=== PATIENT | female | born 1950 | race Caucasian/White ===

== ENCOUNTER 2017-01-11 13:16 | Emergency (ER) | payer OTHER ==
[~2017-01-11] VITALS: Ht 175.3 cm; Wt 58.2 kg
[2017-01-11 13:19] VITALS: TEMP 36.4; Ht 175.3 cm; Wt 58.2 kg
--- NOTE | 2017-01-11 14:48 | DIAGNOSTIC IMAGING REPORT ---
NASAL BONES MIN 3 VIEWS CLINICAL HISTORY: dog struck face trauma COMPARISON STUDY: None FINDINGS: Negative study IMPRESSION: Negative study The above report was generated using voice recognition software. It may contain grammatical, syntax or spelling errors. Electronically signed by: Hernando Kimball M.D. 01/11/2017 2:47 PM Dictated Date/Time: 01/11/2017 2:46 PM
[2017-01-11 15:25] VITALS: BP 166/85; PULSE 84; O2SAT 99
--- NOTE | 2017-01-11 21:23 | EMERGENCY ROOM VISIT NOTE ---
ED Visit Note First contact with patient: 13:54 Chief Complaint: I think I broke my nose. History of Present Illness: Ms. Gonsalves is a 66-year-old white female who ambulates into the ED complaining of nasal pain. Historically patient reports she's had a previous nasal fracture and a repair of a septal deviation many years ago. Patient reports approximately one to 2 hours ago she was getting a dog out of a cage and the dog jumped towards her and struck his head on to her nose. She reports at the time of the injury she had no loss of consciousness but immediately after the injury she had dizziness and reported that she had to lie on the ground for approximately 15-20 minutes until the dizziness resolved. Currently she is complaining of nasal pain just inferior to the nasal bones. She describes the pain as a pressure sensation. She rates her discomfort 1/10. Her pain is nonradiating. Her pain worsens with palpation. He has not identified any alleviating factors related to the pain. She has not taken medications for pain prior to arrival at the hospital. Additionally after the injury she reports she had nasal bleeding from the left nostril only. Currently she denies headache, dizziness, lightheadedness, visual changes, hearing changes, difficult speaking, difficulty swallowing, difficulty ambulating/coordinating body movements, neck pain, other facial pain, nausea, vomiting. Review of Systems: As noted above in history of present illness. 8 body systems were reviewed and found to be negative as noted above. Past Medical History: As previously noted, unspecified stomach disorder, kidney stones, osteoporosis, unspecified urinary problems, unspecified swallowing disorder. Current Medications: Patient denies. Allergies to Medications: Aspirin, codeine, penicillin, Darvocet. Social History: Patient is currently employed; she lives by herself and feels safe in her home environment; she denies alcohol use and admits to tobacco use. Physical Examination: Vital Signs: Date Time Temp Pulse Resp B/P (MAP) Pulse Ox O2 Delivery O2 Flow Rate FiO2 01/11/17 15:25 84 16 166/85 99 Room Air 01/11/17 13:19 36.4 85 20 171/92 95 Room Air GENERAL: 66-year-old female in mild distress due to pain, nontoxic-appearing, afebrile and hemodynamically stable. NEUROLOGICAL: Awake, alert and oriented to person, place and time. Answering questions appropriately and following commands. Normal gait. Good hand eye coordination. Cranial nerves II through XII grossly intact. Good short-term and long-term recall. SKIN: Warm, dry and pink. No soft tissue open or trauma noted. HEENT: Atraumatic and normocephalic. Face: Mild leftward deviation of the nose with an associated contusion over the nose slightly more pronounced on the left than the right. No tenderness or bony deformity over the nasal bones. No tenderness or deformity over the orbits or zygomatic arch area. No malocclusion. PERRLA. EOMI out nystagmus. Sclera white and conjunctiva pink. No intraoral trauma. Airway patent. Speech is clear and normal. BACK: No tenderness over the bony cervical or thoracic spine. ED Course: Patient is assessed as noted above. Patient's medication list was reviewed. Patient was offered pain medication and refused. Nasal X-Rays: Were read by myself and the radiologist and shows no acute fractures. Patient was educated about today's findings and instructed on her treatment plan ; she verbalized understanding and agreement with this plan. Clinical Impression: Nasal contusion. Disposition: Patient discharged home in stable condition; prior to departure she was reassessed and subjectively reported that she was pain-free. LATE NOTE: Was noted that the patient was slightly hypertensive and had no history of hypertension. She was encouraged to follow-up with family physician recheck of her blood pressure. Plan: Patient was encouraged to use 650 mg of acetaminophen as needed every 6 hours as needed for pain. Patient was encouraged use ice on areas of pain and swelling. Patient was educated about signs of head injury. Patient was encouraged return ED for any signs of head injury, uncontrolled nasal bleeding, any difficulty breathing through the nose or any new/concerning symptoms.
== END 2017-01-11 15:50 | disposition home or self-care (01) ==
LOC: C.EDB 13:17 → C.EDD 15:50
DX: S00.33XA Contusion of nose, initial encounter (principal); W54.1XXA Struck by dog, initial encounter; M81.0 Age-related osteoporosis without current pathological fracture; F17.200 Nicotine dependence, unspecified, uncomplicated; Z87.19 Personal history of other diseases of the digestive system; Z87.442 Personal history of urinary calculi; Z88.0 Allergy status to penicillin; Z88.5 Allergy status to narcotic agent; Z88.6 Allergy status to analgesic agent; Z88.8 Allergy status to other drugs, medicaments and biological substances

== ENCOUNTER 2019-03-06 18:21 | Inpatient (IN) ==
[2019-03-06] MEDS ORDERED: SODIUM CHLORIDE 0.9% 1000ML 1,000 ML IV ONE (18:44)
--- NOTE | 2019-03-06 19:21 | XRay Report ---
SINGLE VIEW CHEST CLINICAL HISTORY: Atypical chest pain. FINDINGS: An AP, portable, upright chest radiograph is compared to study dated 07/26/2018. Correlation is made with chest CT dated 01/09/2018. The examination is degraded by portable technique and patient rotation. The cardiomediastinal silhouette is unremarkable noting atherosclerotic calcification of t he thoracic aorta. Emphysema and chronic interstitial thickening are similar to previous. No airspace consolidation or large pleural effusion is identified. No pneumothorax is seen. The skeletal structu res are osteopenic. The bony thorax is grossly intact. IMPRESSION: Emphysematous change with no active disease in the chest. ACT 112: Negative or not required by law. Electronically signed by: Jigar Cota M.D. 03/06/2019 7:20 PM
[2019-03-06 19:25] LABS: Appearance Urine Clear (Clear); Bilirubin Urine Negative (Negative); Blood Urine Negative (Negative); Color Urine Yellow; Glucose Urine UA Negative (Negative); Ketones Urine 1+ (Negative); Leukocyte Esterase Urine Negative (Negative); Nitrite Urine Negative (Negative); Protein Urine Negative (Negative); Specific Gravity Urine 1.032 (1.000-1.030); Urobilinogen Urine Negative (Negative); pH Urine 5.5 (4.5-7.5)
[2019-03-06 19:26] LABS: Basophils # (auto) 0.04 K/uL (0-0.2); Basophils % (auto) 0.6 %; Eosinophils # (auto) 0.05 K/uL (0-0.5); Eosinophils % (auto) 0.7 %; Hematocrit (blood only) 43.9 % (37-47); Hemoglobin 14.6 g/dL (12.0-16.0); Immature Granulocytes # (auto) 0.01 K/uL (0.00-0.02); Immature Granulocytes % (auto) 0.1 %; Lymphocytes # (auto) 1.59 K/uL (1.2-3.4); Mean Corpuscular Hemoglobin 30.9 pg (25-34); Mean Corpuscular Hgb Conc 33.3 g/dL (32-36); Mean Platelet Volume 9.3 fL (7.4-10.4); Monocytes # (auto) 0.47 K/uL (0.11-0.59); Monocytes % (auto) 6.8 %; Neutrophils # (auto) 4.76 K/uL (1.4-6.5); Neutrophils % (auto) 68.8 %; Platelet Count 263 K/uL (130-400); RDW Coefficient of Variation 12.4 % (11.5-14.5); Red Blood Count 4.72 M/uL (4.2-5.4); White Blood Count 6.92 K/uL (4.8-10.8)
[2019-03-06 19:55] LABS: Alanine Aminotransferase 16 U/L (12-78); Aspartate Aminotransferase 11 U/L (15-37); BUN Creatinine Ratio 23.3 (10-20); Blood Urea Nitrogen 17 mg/dl (7-18); Calcium 9.4 mg/dl (8.5-10.1); Carbon Dioxide 27 mmol/L (21-32); Chloride 107 mmol/L (98-107); Est GFR (African American) 94.9; Est GFR (Non-African American) 81.9; Glucose 98 mg/dl (70-99); Lipase 97 U/L (73-393); Magnesium 2.1 mg/dl (1.8-2.4); Sodium 141 mmol/L (136-145)
[2019-03-06] MEDS ORDERED: OPTIRAY 320 125ml IV PRN (19:59)
[2019-03-06 20:06] LABS: Albumin Globulin Ratio 1.1 (0.9-2); Alkaline Phosphatase 111 U/L (45-117); Bilirubin,Total 0.7 mg/dl (0.2-1); Globulin 3.5 gm/dl (2.5-4.0); Phosphorus 3.3 mg/dl (2.5-4.9); Thyroid Stimulating Hormone 0.442 uIu/ml (0.300-4.500); Total Protein 7.5 gm/dl (6.4-8.2); Troponin I < 0.015 ng/ml (0-0.045)
--- NOTE | 2019-03-06 20:37 | CT Scan Report ---
UNENHANCED CT OF THE BRAIN; CT ANGIOGRAM OF THE BRAIN; CT ANGIOGRAM OF THE NECK CLINICAL HISTORY: Seizure. COMPARISON STUDY: CT of the brain dated 10/30/2018. MR angiogram of the brain dated 02/13/2018. MR an giogram of the neck dated 02/13/2018. TECHNIQUE: Unenhanced axial CT scan of the brain is performed. Subsequently, following the IV adminis tration of 119 of [address] 320, CT angiogram of the head and neck was performed from the aortic arch t o the vertex. Images are reviewed in the axial, sagittal, and coronal planes. 3-D MIPS images are cre ated and assessed. IV contrast was administered without complication. All measurements were calculate d based on NASCET criteria. A dose lowering technique was utilized adhering to the principles of ALA RA. CT DOSE: 1000.63 mGy.cm FINDINGS: Brain parenchyma: There is a small low-attenuation extra-axial fluid collection along the left convex ity measuring up to 10 mm deep to the craniotomy site. Again seen is a small focus of high left fron natalie encephalomalacia at the site of previous surgical resection. There is no hemorrhage, mass effect, or evidence of acute territorial ischemia by CT criteria. Glez-white matter differentiation is prese rved. No enhancing lesion is clearly identified on the postcontrast sequences. There is unchanged toni earance of a 2.5 cm densely calcified extra-axial lesion along the left temporal convexity. There is no significant associated mass effect, and the appearance remains typical for a meningioma. Thoracic aorta: Visualized portions of the thoracic aorta are normal in caliber. The aortic arch demo nstrates standard 3-vessel anatomy. Right carotid arterial system: The right common carotid artery is widely patent, as are the right int ernal and external carotid arteries. Left carotid arterial system: The left common carotid artery is widely patent, as are the left internal grinder tender al and external carotid arteries. Vertebral arteries: The vertebral arteries are widely patent bilaterally noting left-sided dominance. 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 Intracranial vasculature: There is mild atherosclerotic calcification of the cavernous carotid arteri es. There is a large right posterior communicating artery. The internal carotid arteries are patent a t the skull base, as are the anterior and middle cerebral arteries bilaterally. The vertebrobasilar s ystem and posterior cerebral arteries are widely patent. The left vertebral artery is dominant. There is no aneurysm, high-grade stenosis, or focal vessel cut off seen throughout the intracranial circul ation. Jugular veins: Patent bilaterally. Dural sinuses: Patent. Lung apices: Advanced emphysematous change is noted in the upper lobes. Upper lobe lung parenchyma is otherwise clear as imaged. Soft tissues: The visualized pharyngeal soft tissues are normal in appearance noting angiographic pha se technique. The oropharyngeal airway appears widely patent. There are large bilateral thyroid nodul es. The largest nodules on the left and measures up to 1.9 cm. The salivary glands are normal in appe arance. No cervical lymphadenopathy is seen. Skeletal structures: The skeletal structures are osteopenic. There is postoperative change from left temporoparietal craniotomy. The calvarium is otherwise intact. The cervical spine is maintained notin g mild spondylosis. Sinuses and mastoids: The paranasal sinuses are clear. The mastoid air cells are well pneumatized. IMPRESSION: 1. There is no hemorrhage, mass effect, or evidence of acute territorial ischemia by CT criteria. 2. Unremarkable CT angiogram of the brain. 3. 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 4. Otherwise unremarkable CT angiogram of the neck. 5. A 2.5 cm calcified lesion along the left temporal convexity is unchanged from prior studies and re gabriela typical in appearance for a meningioma. 6. Again seen is postoperative change from left sided craniotomy. A thin low-attenuation fluid collec tion deep to craniotomy site is similar in appearance to previous. 7. Emphysema. 8. Large bilateral thyroid nodules as above. ACT 112: Negative or not required by law. Electronically signed by: Jigar Cota M.D. 03/06/2019 8:36 PM
[2019-03-06] MEDS ORDERED: ACETAMINOPHEN 500 MG TAB ONE (22:27)
--- NOTE | 2019-03-06 22:28 | History & Physical Report ---
Date of Service March 06, 2019 Assessment & Plan (1) Seizure disorder: (2) Atypical meningioma of brain: -Admit to [facility] -Patient referred to the ED by her home health nurse for increased generalized weakness -Patient with history of brain meningioma s/p resection 2018 with seizure dis order; patient reports ongoing problems with breakthrough seizures headaches that are associated with changes in Keppra (pill versus liquid, brand versus generic) -Per patient, last seizure was yesterday; seizures present as loss of speech and right arm weakness and numbness -No seizure-like activity observed in the ED -Head CTA is negative for acute intracranial finding however shows a small 2 mm left vertebral aneurysm -will need follow-up with neuro -ED discussed with on-call neurology, no need for urgent transfer at this time -Patient has an appointment at [facility] [place] [place] tomorrow with the epilepsy clinic; will observe patient overnight and if no further episodes, will discharge in the morning so that the patient can make her appointment -Seizure precautions -Continue current dose of Keppra (3) Thyroid nodule: -Bilateral large thyroid nodules noted on CT neck -TSH 0.442 -Thyroid ultrasound (4) DVT prophylaxis: -SQ Lovenox History of Present Illness Chief Complaint: Weakness Primary Care Provider: Kelsey Albarado DO 69-year-old female who presents the ED with generalized weakness. Patient with history of brain meningioma s/p resection and seizure disorder. Patient reports she has been having issues with breakthrough seizures over the past 1 year. Patient correlates these breakthrough seizures with changes in her Keppra (pill versus liquid, brand versus generic). Patient was recently changed from liquid Keppra to pill form Keppra about 12 days ago. Patient reports she continues to have breakthrough seizures and headaches. Last seizure was yesterday afternoon. Patient reports her seizures presented strokelike symptoms with loss of speech and right arm numbness and weakness. Patient's home health nurse evaluated the patient today and referred the patient to the ER. Patient denies any recent illnesses, fevers, chills. No abdominal pain, nausea, vomiting, diarrhea. Denies chest pain or shortness of breath. No urinary symptoms. In the ED, patient is hemodynamically stable, labs are unremarkable. She has not had any seizure-like activity. 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 Patient was given IVF. Allergies Allergy/AdvReac Type Severity Reaction Status Date / Time Penicillins Allergy Severe ANAPHYLAXIS Verified 03/06/19 20:14 aspirin AdvReac Severe SWELLING Verified 03/06/19 20:15 OF ESOPHAGUS propoxyphene AdvReac Severe SWELLING Verified 03/06/19 20:15 TO ESOPHAGUS codeine AdvReac Intermediate VOMITTING Verified 03/06/19 20:15 hydromorphone [From Dilaudid] AdvReac Difficulty Verified 03/06/19 20:15 Breathing Home Medications Home Medications Medication Instructions Recorded Confirmed Type levetiracetam [Keppra] 1,500 mg PO BID 07/26/18 03/06/19 History oxycodone 2.5 mg PO QID 07/26/18 03/06/19 History Vitamin D2 1 tab PO DAILY 03/06/19 03/06/19 History acetaminophen [Tylenol Extra 500 mg PO TID PRN 03/06/19 03/06/19 History Strength] pantoprazole [Protonix] 40 mg PO DAILY 03/06/19 03/07/19 History Past Med/Surg History Medical History Atypical meningioma of brain Esophageal stricture GERD (gastroesophageal reflux disease) Seizure disorder Surgical History H/O nasal septoplasty History of appendectomy History of hip replacement Family History Grandmother Uterine cancer Social History Preferred Language: Kosovan Communication Ability: Effective Master Ship Required: No Beliefs That Will Affect Care: None Current Living Situation: Alone Other Information That Helps Us Care for You: No Feels Safe at Home: Yes Safety Concerns: Feels Safe At This Time Smoking Status: Former smoker Tobacco Type: cigarettes ; Smoking End Date: one year ago ; Second Hand Exposure: No ; Tobacco Cessation Education Requested by Patient: No Hx Alcohol Use: No Hx Substance Use: Yes substance use type: opiates Last Used Substance: Just Prior to Arrival Review of Systems Review of Systems: ROS per HPI, all other systems reviewed and negative Physical Exam Physical Exam: Please refer Dr. Nelson's addendum for physical exam. Results & Data Vital Signs (Past 12 Hours) Vital Signs Temp Pulse Resp BP Pulse Ox 03/06/19 21:20 72 14 94 03/06/19 21:10 56 L 17 96 03/06/19 21:01 60 12 96 03/06/19 21:00 55 L 18 131/62 96 03/06/19 20:56 58 L 15 121/70 97 03/06/19 20:50 58 L 18 97 03/06/19 20:40 59 L 13 96 03/06/19 20:30 62 20 97 03/06/19 20:27 73 13 03/06/19 20:00 65 17 97 03/06/19 19:55 97 03/06/19 18:50 65 03/06/19 18:43 96 03/06/19 18:42 62 16 03/06/19 18:27 61 14 152/77 H 03/06/19 18:06 36.6 C 77 18 152/77 H 96 Laboratory Results Short CBC 03/06/19 Range/Units 19:03 WBC 6.92 (4.8-10.8) K/uL Hgb 14.6 (12.0-16.0) g/dL Hct 43.9 (37-47) % Plt Count 263 (130-400) K/uL BMP 03/06/19 19:03 Sodium 141 Potassium 4.0 Chloride 107 Carbon Dioxide 27 BUN 17 Creatinine 0.75 Glucose 98 Calcium 9.4 Cardiac Enzymes 03/06/19 Range/Units 19:03 Troponin I < 0.015 (0-0.045) ng/ml Liver Function 03/06/19 Range/Units 19:03 Total Bilirubin 0.7 (0.2-1) mg/dl AST 11 L (15-37) U/L ALT 16 (12-78) U/L Alkaline Phosphatase 111 (45-117) U/L Albumin 4.0 (3.4-5.0) gm/dl Urine 03/06/19 Range/Units 19:03 Urine Color Yellow Urine Appearance Clear (Clear) Urine pH 5.5 (4.5-7.5) Ur Specific [place] 1.032 H (1.000-1.030) Urine Protein Negative (Negative) Urine Glucose (UA) Negative (Negative) Diagnostic Findings HEAD/NECK CTA IMPRESSION: 1. There is no hemorrhage, mass effect, or evidence of acute territorial ischemia by CT criteria. 2. Unremarkable CT angiogram of the brain. 3. 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 4. Otherwise unremarkable CT angiogram of the neck. 5. A 2.5 cm calcified lesion along the left temporal convexity is unchanged from prior studies and remains typical in appearance for a meningioma. 6. Again seen is postoperative change from left sided craniotomy. A thin low- attenuation fluid collection deep to craniotomy site is similar in appearance to previous. 7. Emphysema. 8. Large bilateral thyroid nodules as above. CXR IMPRESSION: Emphysematous change with no active disease in the chest. Code Status & VTE Plan Code Status Patient is a DNR as per Dr. Nelson's discussion her. Supervising Physician Co-Signing Physician Notes Pt was seen and examined. Agreed with Meme JORDAN exam, assessment and plan. 69-year-old female with PMH of Seizure, brain meningioma s/p resection who presents the ED with generalized weakness with breakthrough seizure. Pt said that she has been having episodes of recurrent seizure for over 1 yr. She said that she has been feeling very weak with low appetite. Pt said that she has an appt tomorrow with the [facility]ure [facility] in [place] and she does not want to miss it. Denies any chest pain, palpitation and SOB. 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 A 2.5 cm calcified lesion along the left temporal convexity is unchanged from prior studies and remains typical in appearance for a meningioma. Continue Keppra 1.5g BID Check Keppra level Seizure precaution and fall precaution Pt has a follow up appointment tomorrow in [place] with seizure clinic. Since pt leaves alone and it already passed 10PM and the road is icy, we will observe her for tonight and discharge in am to make her appt. Continue monitor. Thyroid Nodule Will get an u/s of the thyroid. CODE STATUS DNR MD Leslie
--- NOTE | 2019-03-06 22:48 | Emergency Department Note ---
Entered by Hannah Dalton acting as a scribe for Brian Barrera MD History of Present Illness General Chief complaint: Seizure Stated complaint: SEIZURES, HEADACHE, DIZZY Time Seen by Provider: 03/06/19 18:23 Source: patient History of Present Illness Onset (ago): day(s) 1 Location: head (seizure) Severity: similar to prior episodes Pain Consistency: + other (episode) Quality: + other (seizure) Exacerbated By: + other (missing medication dose, taking new antibiotic) Associated symptoms: + headaches, + seizure, + weakness and + other (Dizzy, swollen lymph nodes, can't walk); no syncope The patient is a 69 year old female presenting to the Emergency Department complaining of an episode of a seizure starting 1 day ago. The patient reports that she had a seizure 1 day ago. She states that she has been having more seizures than usual for about a month, after she started an antibiotic that her dentist gave her. She explains that she has 3 to 5 seizures about every other day. She states that she usually had a seizure once per month prior to January 2019. She notes that she currently has a headache. She adds that she has been dizzy for the last 10 days. The patient reports that she feels weak all over and cant walk. She states that she takes Keppra and thinks she may have missed a dose because [facility] found 1 dose of Keppra on the floor. She explains that her lymph nodes are swollen. She notes that her last brain MRI was 6 months ago. The patient denies syncope. Home Medications Home Medications Medication Instructions Recorded Confirmed Type levetiracetam [Keppra] 1,500 mg PO BID 07/26/18 03/06/19 History oxycodone 2.5 mg PO QID 07/26/18 03/06/19 History Vitamin D2 1 tab PO DAILY 03/06/19 03/06/19 History acetaminophen [Tylenol Extra 500 mg PO TID PRN 03/06/19 03/06/19 History Strength] pantoprazole [Protonix] 40 mg PO DAILY 03/06/19 03/07/19 History Allergies Allergy/AdvReac Type Severity Reaction Status Date / Time Penicillins Allergy Severe ANAPHYLAXIS Verified 03/06/19 20:14 aspirin AdvReac Severe SWELLING Verified 03/06/19 20:15 OF ESOPHAGUS propoxyphene AdvReac Severe SWELLING Verified 03/06/19 20:15 TO ESOPHAGUS codeine AdvReac Intermediate VOMITTING Verified 03/06/19 20:15 hydromorphone [From Dilaudid] AdvReac Difficulty Verified 03/06/19 20:15 Breathing Past Med/Surg History Medical History Atypical meningioma of brain Esophageal stricture GERD (gastroesophageal reflux disease) Seizure disorder Surgical History H/O nasal septoplasty History of appendectomy History of hip replacement Family History Grandmother Uterine cancer Social History Preferred Language: Japanese Communication Ability: Effective Contestant Coordinator Required: No Beliefs That Will Affect Care: None Current Living Situation: Alone Feels Safe at Home: Yes Smoking Status: Former smoker Tobacco Type: cigarettes ; Second Hand Exposure: Yes ; Hx Alcohol Use: No Hx Substance Use: No Review of Systems See HPI for pertinent positives & negatives. and A total of 10 systems reviewed and were otherwise negative Physical Exam Vital Signs Vital Signs - 24 hr 03/06/19 18:06 03/06/19 18:27 03/06/19 18:42 Temperature 36.6 C Temperature Source Oral Pulse Rate 77 61 62 Pulse Rate from SpO2 Sensor Respiratory Rate 18 14 16 Respiratory Effort / Characteristics Non-Labored Spontaneous Respiratory Depth Normal Respiratory Pattern Regular Blood Pressure 152/77 H 152/77 H Blood Pressure Mean 102 92 Blood Pressure Position Sitting Pulse Oximetry 96 Oxygen Delivery Method Room Air Sepsis Recent Fever Within 48 Hours No Sepsis New/Unexplained Change in Mental Status No Sepsis Action Taken by Nursing No Action Required 03/06/19 18:43 03/06/19 18:50 03/06/19 19:55 Temperature Temperature Source Pulse Rate 65 Pulse Rate from SpO2 Sensor 62 Respiratory Rate Respiratory Effort / Characteristics Respiratory Depth Respiratory Pattern Blood Pressure Blood Pressure Mean Blood Pressure Position Pulse Oximetry 96 97 Oxygen Delivery Method Room Air Sepsis Recent Fever Within 48 Hours Sepsis New/Unexplained Change in Mental Status Sepsis Action Taken by Nursing 03/06/19 20:00 03/06/19 20:27 03/06/19 20:30 Temperature Temperature Source Pulse Rate 65 73 62 Pulse Rate from SpO2 Sensor 64 61 Respiratory Rate 17 13 20 Respiratory Effort / Characteristics Respiratory Depth Respiratory Pattern Blood Pressure Blood Pressure Mean Blood Pressure Position Pulse Oximetry 97 97 Oxygen Delivery Method Sepsis Recent Fever Within 48 Hours Sepsis New/Unexplained Change in Mental Status Sepsis Action Taken by Nursing 03/06/19 20:40 03/06/19 20:50 03/06/19 20:56 Temperature Temperature Source Pulse Rate 59 L 58 L 58 L Pulse Rate from SpO2 Sensor 58 L 59 L 57 L Respiratory Rate 13 18 15 Respiratory Effort / Characteristics Respiratory Depth Respiratory Pattern Blood Pressure 121/70 Blood Pressure Mean 100 Blood Pressure Position Pulse Oximetry 96 97 97 Oxygen Delivery Method Sepsis Recent Fever Within 48 Hours Sepsis New/Unexplained Change in Mental Status Sepsis Action Taken by Nursing 03/06/19 21:00 03/06/19 21:01 03/06/19 21:10 Temperature Temperature Source Pulse Rate 55 L 60 56 L Pulse Rate from SpO2 Sensor 55 L 58 L 57 L Respiratory Rate 18 12 17 Respiratory Effort / Characteristics Respiratory Depth Respiratory Pattern Blood Pressure 131/62 Blood Pressure Mean 77 Blood Pressure Position Pulse Oximetry 96 96 96 Oxygen Delivery Method Sepsis Recent Fever Within 48 Hours Sepsis New/Unexplained Change in Mental Status Sepsis Action Taken by Nursing 03/06/19 21:20 03/06/19 21:30 03/06/19 21:40 Temperature Temperature Source Pulse Rate 72 65 65 Pulse Rate from SpO2 Sensor 70 Respiratory Rate 14 15 16 Respiratory Effort / Characteristics Respiratory Depth Respiratory Pattern Blood Pressure Blood Pressure Mean Blood Pressure Position Pulse Oximetry 94 Oxygen Delivery Method Sepsis Recent Fever Within 48 Hours Sepsis New/Unexplained Change in Mental Status Sepsis Action Taken by Nursing 03/06/19 21:50 03/06/19 22:00 03/06/19 22:10 Temperature Temperature Source Pulse Rate 71 66 65 Pulse Rate from SpO2 Sensor Respiratory Rate 16 14 12 Respiratory Effort / Characteristics Respiratory Depth Respiratory Pattern Blood Pressure Blood Pressure Mean Blood Pressure Position Pulse Oximetry Oxygen Delivery Method Sepsis Recent Fever Within 48 Hours Sepsis New/Unexplained Change in Mental Status Sepsis Action Taken by Nursing 03/06/19 22:24 03/06/19 22:30 03/06/19 22:31 Temperature Temperature Source Pulse Rate Pulse Rate from SpO2 Sensor 53 L 60 60 Respiratory Rate Respiratory Effort / Characteristics Respiratory Depth Respiratory Pattern Blood Pressure 150/78 H Blood Pressure Mean 112 Blood Pressure Position Pulse Oximetry 92 96 95 Oxygen Delivery Method Sepsis Recent Fever Within 48 Hours Sepsis New/Unexplained Change in Mental Status Sepsis Action Taken by Nursing GENERAL: Drowsy and fatigued appearing. Awake. In no distress. HENT: Normocephalic, atraumatic. Oropharynx with dry mucous membranes and otherwise unremarkable. EYES: Normal conjunctiva. Sclera non-icteric. NECK: Supple. No nuchal rigidity. FROM. No JVD. Enlarged thyroid. RESPIRATORY: CTAB. CARDIAC: Regular rate, normal rhythm. Extremities warm and well perfused. Pulses equal. ABDOMEN: Soft, non-distended. No tenderness to palpation. No rebound or guarding. No masses. RECTAL: Deferred. MUSCULOSKELETAL: Chest examination reveals no tenderness. The back is symmetrical on inspection without obvious abnormality. There is no CVA tenderness to palpation. No joint edema. LOWER EXTREMITIES: Calves are equal size bilaterally and non-tender. No edema. No discoloration. NEURO: Normal sensorium. No sensory or motor deficits noted. Generalized weakness with 4+/5 strength and SILT x 4 extremities. Normal reflexes. No clonus. SKIN: No rash or jaundice noted. Course Course 1829: The patient was evaluated in room C10, and a complete history and physical examination were performed. 2031: I reevaluated the patient at this time. 2104: I discussed the patient's case with Dr. Danita Baldwin hospitalist. He will evaluate the patient for further management. Administered Medications Sodium Chloride (Nss 1000ml) 1,000 mls @ 80 mls/hr IV .[id number] ARNOLDO Stop: 04/06/19 00:00 Last Admin: 03/07/19 01:11 Dose: 80 mls/hr Documented by: [id number] Oxycodone HCl (Roxicodone Immediate Rel) 2.5 mg PO QID PRN PRN Reason: Pain Stop: 03/21/19 00:07 Last Admin: 03/07/19 01:09 Dose: 2.5 mg Documented by: [id number] Discontinued Medications Acetaminophen (Tylenol) Confirm Administered Dose 500 mg .ROUTE .STK-MED ONE Stop: 03/06/19 22:28 Last Admin: 03/06/19 22:30 Dose: 500 mg Documented by: [id number] Sodium Chloride (Nss 1000ml) 1,000 mls @ 999 mls/hr IV .Q1H1M ONE Stop: 03/06/19 19:44 Last Infusion: 03/06/19 20:53 Dose: 0 mls/hr Documented by: [id number] Admin: 03/06/19 19:52 Dose: 999 mls/hr Documented by: [id number] Ioversol (Optiray 320 125ml) 119 ml IV ONCE PRN PRN Reason: Interaction Checking Stop: 03/07/19 00:01 Last Admin: 03/06/19 20:00 Dose: 1 ml Documented by: [id number] Medical Decision Making Differential Diagnosis Differential diagnosis includes etiologies such as infection, hypoglycemia, electrolyte abnormalities, cardiac sources, intracerebral event, trauma, t oxicologic, neurologic, as well as others were entertained. Medical Records Attestation: I reviewed the patient's medical records. Home Medications Current Medication List: was personally reviewed by me Laboratory Data Attestation: I reviewed the patient's lab results. Result diagrams: 03/06/19 19:03 03/06/19 19:03 Lab Results 03/06/19 03/06/19 03/06/19 Range/Units 19:03 19:03 19:03 WBC 6.92 (4.8-10.8) K/uL RBC 4.72 (4.2-5.4) M/uL Hgb 14.6 (12.0-16.0) g/dL Hct 43.9 (37-47) % MCV 93.0 (80-100) fL MCH 30.9 (25-34) pg MCHC 33.3 (32-36) g/dL RDW Std Deviation 42.0 (36.4-46.3) fL RDW Coeff of Sissy 12.4 (11.5-14.5) % Plt Count 263 (130-400) K/uL MPV 9.3 (7.4-10.4) fL Immature Gran % (Auto) 0.1 % Neut % (Auto) 68.8 % Lymph % (Auto) 23.0 % Jones % (Auto) 6.8 % Eos % (Auto) 0.7 % Baso % (Auto) 0.6 % Immature Gran # (Auto) 0.01 (0.00-0.02) K/uL Neut # (Auto) 4.76 (1.4-6.5) K/uL Lymph # (Auto) 1.59 (1.2-3.4) K/uL Jones # (Auto) 0.47 (0.11-0.59) K/uL Eos # (Auto) 0.05 (0-0.5) K/uL Baso # (Auto) 0.04 (0-0.2) K/uL Sodium 141 (136-145) mmol/L Potassium 4.0 (3.5-5.1) mmol/L Chloride 107 (98-107) mmol/L Carbon Dioxide 27 (21-32) mmol/L Anion Gap 6.0 (3-11) BUN 17 (7-18) mg/dl Creatinine 0.75 (0.6-1.2) mg/dl Est Cr Clr Drug Dosing Not Reportable Est GFR ( Amer) 94.9 Est GFR (Non-Af Amer) 81.9 BUN/Creatinine Ratio 23.3 H (10-20) Glucose 98 (70-99) mg/dl Calcium 9.4 (8.5-10.1) mg/dl Phosphorus 3.3 (2.5-4.9) mg/dl Magnesium 2.1 (1.8-2.4) mg/dl Total Bilirubin 0.7 (0.2-1) mg/dl AST 11 L (15-37) U/L ALT 16 (12-78) U/L Alkaline Phosphatase 111 (45-117) U/L Troponin I < 0.015 (0-0.045) ng/ml Total Protein 7.5 (6.4-8.2) gm/dl Albumin 4.0 (3.4-5.0) gm/dl Globulin 3.5 (2.5-4.0) gm/dl Albumin/Globulin Ratio 1.1 (0.9-2) Lipase 97 (73-393) U/L TSH 0.442 (0.300-4.500) uIu/ml Urine Color Yellow Urine Appearance Clear (Clear) Urine pH 5.5 (4.5-7.5) Ur Specific [place] 1.032 H (1.000-1.030) Urine Protein Negative (Negative) Urine Glucose (UA) Negative (Negative) Urine Ketones 1+ H (Negative) Urine Blood Negative (Negative) Urine Nitrite Negative (Negative) Urine Bilirubin Negative (Negative) Urine Urobilinogen Negative (Negative) Ur Leukocyte Esterase Negative (Negative) Imaging Data Radiologist's Impression: Radiology results as stated below per my review and the radiologist's interpretation: UNENHANCED CT OF THE BRAIN; CT ANGIOGRAM OF THE BRAIN; CT ANGIOGRAM OF THE NECK CLINICAL HISTORY: Seizure. COMPARISON STUDY: CT of the brain dated 10/30/2018. MR angiogram of the brain dated 02/13/2018. MR angiogram of the neck dated 02/13/2018. TECHNIQUE: Unenhanced axial CT scan of the brain is performed. Subsequently, following the IV administration of 119 of Optiray 320, CT angiogram of the head and neck was performed from the aortic arch to the vertex. Images are reviewed in the axial, sagittal, and coronal planes. 3-D MIPS images are created and assessed. IV contrast was administered without complication. All measurements were calculated based on NASCET criteria. A dose lowering technique was utilized adhering to the principles of ALARA. CT DOSE: 1000.63 mGy.cm FINDINGS: Brain parenchyma: There is a small low-attenuation extra-axial fluid collection along the left convexity measuring up to 10 mm deep to the craniotomy site. Again seen is a small focus of high left frontal encephalomalacia at the site of previous surgical resection. There is no hemorrhage, mass effect, or evidence of acute territorial ischemia by CT criteria. Glez-white matter differentiation is preserved. No enhancing lesion is clearly identified on the postcontrast se quences. There is unchanged appearance of a 2.5 cm densely calcified extra-axial lesion along the left temporal convexity. There is no significant associated mass effect, and the appearance remains typical for a meningioma. Thoracic aorta: Visualized portions of the thoracic aorta are normal in caliber. The aortic arch demonstrates standard 3-vessel anatomy. Right carotid arterial system: The right common carotid artery is widely patent, as are the right internal and external carotid arteries. Left carotid arterial system: The left common carotid artery is widely patent, as are the left internal and external carotid arteries. Vertebral arteries: The vertebral arteries are widely patent bilaterally noting left-sided dominance. 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 Intracranial vasculature: There is mild atherosclerotic calcification of the cavernous carotid arteries. There is a large right posterior communicating artery. The internal carotid arteries are patent at the skull base, as are the anterior and middle cerebral arteries bilaterally. The vertebrobasilar system and posterior cerebral arteries are widely patent. The left vertebral artery is dominant. There is no aneurysm, high-grade stenosis, or focal vessel cut off seen throughout the intracranial circulation. Jugular veins: Patent bilaterally. Dural sinuses: Patent. Lung apices: Advanced emphysematous change is noted in the upper lobes. Upper lobe lung parenchyma is otherwise clear as imaged. Soft tissues: The visualized pharyngeal soft tissues are normal in appearance noting angiographic phase technique. The oropharyngeal airway appears widely patent. There are large bilateral thyroid nodules. The largest nodules on the left and measures up to 1.9 cm. The salivary glands are normal in appearance. No cervical lymphadenopathy is seen. Skeletal structures: The skeletal structures are osteopenic. There is postoperative change from left temporoparietal craniotomy. The calvarium is otherwise intact. The cervical spine is maintained noting mild spondylosis. Sinuses and mastoids: The paranasal sinuses are clear. The mastoid air cells are well pneumatized. IMPRESSION: 1. There is no hemorrhage, mass effect, or evidence of acute territorial ischemia by CT criteria. 2. Unremarkable CT angiogram of the brain. 3. 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 4. Otherwise unremarkable CT angiogram of the neck. 5. A 2.5 cm calcified lesion along the left temporal convexity is unchanged from prior studies and remains typical in appearance for a meningioma. 6. Again seen is postoperative change from left sided craniotomy. A thin low- attenuation fluid collection deep to craniotomy site is similar in appearance to previous. 7. Emphysema. 8. Large bilateral thyroid nodules as above. ACT 112: Negative or not required by law. Electronically signed by: Jigar Cota M.D. 03/06/2019 8:36 PM SINGLE VIEW CHEST CLINICAL HISTORY: Atypical chest pain. FINDINGS: An AP, portable, upright chest radiograph is compared to study dated 07/26/2018. Correlation is made with chest CT dated 01/09/2018. The examination is degraded by portable technique and patient rotation. The cardiomediastinal silhouette is unremarkable noting atherosclerotic calcification of the thoracic aorta. Emphysema and chronic interstitial thickening are similar to previous. No airspace consolidation or large pleural effusion is identified. No pneumothorax is seen. The skeletal structures are osteopenic. The bony thorax is grossly intact. IMPRESSION: Emphysematous change with no active disease in the chest. ACT 112: Negative or not required by law. Electronically signed by: Jigar Cota M.D. 03/06/2019 7:20 PM ECG Data Attestation: I personally reviewed and interpreted this ECG as follows: Indication: + other (seizure) Rate (beats per minute): 64 Rhythm: + normal sinus ECG [place]: + Normal ECG ST segments: no ST depression and no ST elevation ECG Findings: + Other (TC 453.); no PACs and no PVCs Blood Pressure Blood Pressure Findings: Elevated blood pressure Blood Pressure Disposition: further management by hospitalist MDM Narrative The patient is a pleasant 69-year-old woman with a past medical history of partial seizure disorder on Keppra, related to history of meningioma and resection presents emergency department from home after home health nursing was concerned for the patient's increasing frequency of seizures at home with subsequent "stroke-like" symptoms with slurred speech per HPI. Per the patient the home health nurse contacted the doctor fundraising consultant and was advised to have the patient go to the emergency department for evaluation given her history is too complex. On arrival the patient is fatigued appearing but no acute distress, afebrile stable vital signs. She is neurologically intact with fluent speech. She has no focal neuro deficits at this time moving all extremities equally though with generalized weakness with 4+/5 strength and SILT x 4 extremities. . EKG without overt acute ischemia. Chest x-ray negative for acute process. WBC, H/H and platelets within normal limits. Chemistry without acidosis. Electrolytes and LFTs unremarkable. Troponin negative/undetectable. TSH wnl. UA with 1+ ketones consistent with the patient's clinically dry appearance. Otherwise no evidence of infection. A Keppra level was ordered and is pending but a send out test. 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 Otherwise shows stable findings related to the patient's meningioma with a 2.5 cm calcified lesion al dandre the left temporal convexity. Patient's postoperative changes related to her left-sided craniotomy are also stable. Note is made of bilateral large thyroid nodules. Patient did feel some improvement after IV fluid hydration in the emergency department. However given the patient's generalized weakness where she feels too weak to walk in the setting of her increasing frequency of seizures reasonable to admit the patient for further management. Patient is agreeable with this. Case was discussed with Meme JORDAN and Dr. Nelson, [facility] hospitalist, who will evaluate the patient for admission. Discussed the case with [facility] neurology on-call, Dr. Harvey, per [facility] admitting team request. We agree there is no indication for emergent transfer for continuous EEG monitoring at this time. Impression & Plan Seizure disorder, Generalized weakness, Dehydration, Thyroid nodule Discharge Plan Visit Data *Final* Discharge Date/Time: 03/06/19 23:19 Chief Complaint: Seizure Stated Complaint: SEIZURES, HEADACHE, DIZZY ED Provider: Brian Barrera Discharge Problem: Seizure disorder, Generalized weakness, Dehydration, Thyroid nodule Patient Disposition: Admitted As Inpatient Discharge Instructions Interventions: ED Discharge Assessment Last Done: 03/06/19 23:19 The scribe's documentation has been prepared under my direction and personally reviewed by me in its entirety. I confirm that the note above accurately reflects all work, treatment, procedures, and medical decision making performed by me.
[2019-03-07] MEDS: OXYCODONE HCL IR 5 MG TAB (IMMEDIATE RELEASE) PO PRN ×5 (01:09→20:59)
[2019-03-07] MEDS: SODIUM CHLORIDE 0.9% 1000ML 1,000 ML IV SCH ×2 (01:11→12:38)
--- NOTE | 2019-03-07 07:15 | Ultrasound Report ---
THYROID ULTRASOUND HISTORY: b/l thyroid nodule COMPARISON: Neck CTA 03/06/2019. FINDINGS: Right lobe: 5.3 x 1.8 x 1.7 cm. Multiple small hypoechoic nodules with the largest in the lower pole measuring 1.5 x 1.3 x 1.1 cm. Left lobe: 5.5 x 1.8 x 2.1 cm. Multiple nodules with the largest in the lower pole measuring 2.2 x 1. 4 x 1.7 cm. There is also a 2 cm hypoechoic interpolar nodule. Isthmus: 2 mm in thickness. A 9 mm slightly hypoechoic nodule. IMPRESSION: Multinodular thyroid gland. Dominant nodule within the lower pole of the left lobe measures 2.2 x 1.7 x 1.4 cm. Continued follow-up recommended to ensure stability. ACT 112: Positive. There are findings on this exam that require communication between the performing entity and the patient following Patient Test Result Information Act ([place] Act 112) guidelines. Electronically signed by: Juve Blevins M.D. 03/07/2019 7:14 AM
[2019-03-07] MEDS ORDERED: LORazepam 1 MG/2 ML VIAL IV ONE (08:20)
[2019-03-07] MEDS: CHOLECALCIFEROL 1,000 UNITS TAB PO SCH (08:40)
[2019-03-07] MEDS: PANTOprazole 40 MG TAB PO SCH (08:40)
[2019-03-07] MEDS ORDERED: ACETAMINOPHEN 1,000 MG/100 ML VIAL IV STA (08:47)
[2019-03-07] MEDS ORDERED: levETIRAcetam 500 MG TAB PO SCH ×2 (09:00)
[2019-03-07] MEDS ORDERED: ENOXAPARIN INJ 40 MG/0.4 ML SYR SQ SCH (09:00)
[2019-03-07] MEDS: LACOSAMIDE 50 MG TABLET PO SCH ×3 (09:33→20:59)
[2019-03-07 10:01] LABS: Basophils # (auto) 0.03 K/uL (0-0.2); Basophils % (auto) 0.7 %; Eosinophils # (auto) 0.11 K/uL (0-0.5); Eosinophils % (auto) 2.5 %; Hematocrit (blood only) 39.3 % (37-47); Hemoglobin 13.2 g/dL (12.0-16.0); Immature Granulocytes # (auto) 0.01 K/uL (0.00-0.02); Immature Granulocytes % (auto) 0.2 %; Lymphocytes # (auto) 1.26 K/uL (1.2-3.4); Lymphocytes % (auto) 28.6 %; Mean Corpuscular Hemoglobin 30.8 pg (25-34); Mean Corpuscular Hgb Conc 33.6 g/dL (32-36); Mean Corpuscular Volume 91.8 fL (80-100); Mean Platelet Volume 9.2 fL (7.4-10.4); Monocytes # (auto) 0.46 K/uL (0.11-0.59); Monocytes % (auto) 10.4 %; Neutrophils # (auto) 2.54 K/uL (1.4-6.5); Neutrophils % (auto) 57.6 %; Platelet Count 208 K/uL (130-400); RDW Coefficient of Variation 12.5 % (11.5-14.5); RDW Standard Deviation 41.9 fL (36.4-46.3); Red Blood Count 4.28 M/uL (4.2-5.4); White Blood Count 4.41 K/uL (4.8-10.8)
[2019-03-07 10:21] LABS: Albumin Level 3.2 gm/dl (3.4-5.0); BUN Creatinine Ratio 22.6 (10-20); Calcium 8.3 mg/dl (8.5-10.1); Creatinine Clr Calc Pharmacy 84.7 ml/min; Est GFR (African American) 106.3; Est GFR (Non-African American) 91.7; Magnesium 2.1 mg/dl (1.8-2.4); Potassium 3.9 mmol/L (3.5-5.1)
[2019-03-07 10:24] LABS: Bilirubin,Total 0.8 mg/dl (0.2-1); Globulin 3.1 gm/dl (2.5-4.0); Total Protein 6.3 gm/dl (6.4-8.2)
[2019-03-07] MEDS: levETIRAcetam 500 MG TAB PO SCH ×2 (10:39→22:29)
--- NOTE | 2019-03-07 14:51 | Neurology Consultation ---
Date of Consultation March 07, 2019 Assessment & Plan (1) Seizure disorder: 1. continue Keppra 1500 mg q 12 hours 2. Vimpat 100 mg BID added continue 3. patient dose not drive but would not be eligible for 6 months seizure free 4. no swimming or bathing alone 5. no heights 6. fall precautions 7. follow up with Dr Nieves in neurology 4-6 weeks after discharge 8. will need neurovascular follow up for survey on 2 mm aneurysm incidentally found 9. needs LTM at [place] to be evaluated for seizure events (2) Atypical meningioma of brain: 1. follow up with neurosurgery as scheduled 2. radiation oncology as scheduled. 3. MRI brain with and without evaluation of any further lesions Supervising Physician Co-Signing Physician Notes Patient was seen and examined. Agree with Blayne Barragan as note below. 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 She is on Keppra 1500 mg BID and concern for AE and wishes to switch AED's. She follows with Dr. Roy. Describes seizures as right arm shaking and dysarthria. Has had ambulatory but states spells occurred once ambulatory was removed. She has not been to the EMU. States seizures have seem to changed semiology. She believes Keppra is causing her to not feel well, eye pain, and headaches. On examine she appears depressed. Poor eye contact. She has ear plugs in. Tongue is midline with no abrasion. No tremor. No nystagmus. Pupils equal and reactive. Due to concern for increase seizure despite compliance with Keppra will start Vimpat 100 mg BID. This medication is often tolerated very well and can be given IV and PO. Would recommend to continue Keppra for now at 1500 mg BID> May attempt to wean off Keppra in future. Patient would certainly benefit from a formal EMU admission for spell characterization as events may non epileptic. While patient is admitted I would obtain a repeat MRI brain w/wo contrast to evealute for extent of tumor reoccurance. Discussed plan with patient at length and expressed understadning. She agreed to plan of care. History of Present Illness Reason for Consultation: breakthrough seizures Requesting Physician: Reece Barriga MD Attending Physician: Reece Barriga MD History of Present Illness Nabila is a 69 year old female with PMH brain meningioma s/p resection and seizure disorder. She has been having breakthrough seizures over the past 1 year. She feels the breakthrough seizures with changes in her Keppra (pill versus liquid, brand versus generic). About 12 days ago she was changed back to pill form brand necessary. She continues to have breakthrough seizures and headaches. The seizures are characterized by slurred speech and right arm numbness and weakness. She is currently on Keppra 1500 mg q 12 hours and was started on Vimpat 100 mg BID. denies CP, SOB, abdominal pain, one sided w eakness, numbness tingling N, V, new bowel or bladder issues. Allergies Allergy/AdvReac Type Severity Reaction Status Date / Time Penicillins Allergy Severe ANAPHYLAXIS Verified 03/06/19 20:14 aspirin AdvReac Severe SWELLING Verified 03/06/19 20:15 OF ESOPHAGUS propoxyphene AdvReac Severe SWELLING Verified 03/06/19 20:15 TO ESOPHAGUS codeine AdvReac Intermediate VOMITTING Verified 03/06/19 20:15 hydromorphone [From Dilaudid] AdvReac Difficulty Verified 03/06/19 20:15 Breathing Home Medications Home Medications Medication Instructions Recorded Confirmed Type levetiracetam [Keppra] 1,500 mg PO BID 07/26/18 03/06/19 History oxycodone 2.5 mg PO QID 07/26/18 03/06/19 History Vitamin D2 1 tab PO DAILY 03/06/19 03/06/19 History acetaminophen [Tylenol Extra 500 mg PO TID PRN 03/06/19 03/06/19 History Strength] pantoprazole [Protonix] 40 mg PO DAILY 03/06/19 03/07/19 History Patient History Medical History Atypical meningioma of brain Esophageal stricture GERD (gastroesophageal reflux disease) Seizure disorder Surgical History H/O nasal septoplasty History of appendectomy History of hip replacement Family History Grandmother Uterine cancer Social History Preferred Language: R[place] Communication Ability: Effective Lacquer Coater Required: No Beliefs That Will Affect Care: None Current Living Situation: Alone Other Information That Helps Us Care for You: No Feels Safe at Home: Yes Safety Concerns: Feels Safe At This Time Smoking Status: Former smoker Tobacco Type: cigarettes ; Smoking End Date: one year ago ; Second Hand Exposure: No ; Tobacco Cessation Education Requested by Patient: No Hx Alcohol Use: No Hx Substance Use: Yes substance use type: opiates Last Used Substance: Just Prior to Arrival Physical Exam Physical Exam: Physical Exam: Constitutional: appearance nourished, thin pale Ears, Nose, Mouth and Throat: mucous membranes moist, no injection and skin normal, eyes normal Cardiovascular: normal S-1 and S-2 and regular rate and rhythm Respiratory: course breath sounds Musculoskeletal: no peripheral edema and good distal pulses Skin: no stigmata of neurocutaneous disease noted and normal and intact Eyes: extraocular muscles intact (EOMI) and pupils equal, round and reactive to light (PERRL) NEUROLOGIC EXAMINATION: Mental status: Alert and interactive Oriented to full date and location Oriented to person Speech fluent with no evidence of aphasia Cranial Nerves smile eye brow raise symmetric Reflexes: Deep tendon reflexes were symmetrical and graded 2/5. Sensory: light and cool touch Coordination: Romberg absent Gait/Stance: Posture sitting up in bed Motor: Negative for pronator drift of out stretched arms with eyes closed. Strength: biceps triceps hand trash collector 5/5 bilaterally, hip flex plantar flex ext 5/5 Results & Data Vital Signs (Past 12 Hours) Vital Signs Temp Pulse Resp BP BP Pulse Ox 03/07/19 11:41 36.5 C 58 L 18 156/84 H 95 03/07/19 07:28 36.9 C 58 L 18 102/65 93 03/07/19 03:13 36.5 C 62 14 143/85 H 96 Laboratory Results Abnormal lab results 03/06/19 03/06/19 03/07/19 Range/Units 19:03 19:03 09:44 WBC 4.41 L (4.8-10.8) K/uL Chloride (98-107) mmol/L BUN/Creatinine Ratio 23.3 H (10-20) Calcium (8.5-10.1) mg/dl AST 11 L (15-37) U/L Total Protein (6.4-8.2) gm/dl Albumin (3.4-5.0) gm/dl Ur Specific [place] 1.032 H (1.000-1.030) Urine Ketones 1+ H (Negative) 03/07/19 Range/Units 09:44 WBC (4.8-10.8) K/uL Chloride 113 H (98-107) mmol/L BUN/Creatinine Ratio 22.6 H (10-20) Calcium 8.3 L (8.5-10.1) mg/dl AST 11 L (15-37) U/L Total Protein 6.3 L (6.4-8.2) gm/dl Albumin 3.2 L (3.4-5.0) gm/dl Ur Specific [place] (1.000-1.030) Urine Ketones (Negative) Diagnostic Findings US thyroid-Multinodular thyroid gland. Dominant nodule within the lower pole of the left lobe measures 2.2 x 1.7 x 1.4 cm. Continued follow-up recommended to ensure stability. CTA head/neck-. There is no hemorrhage, mass effect, or evidence of acute territorial ischemia by CT criteria. Unremarkable CT angiogram of the brain. 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 Otherwise unremarkable CT angiogram of the neck. A 2.5 cm calcified lesion ahsan ng the left temporal convexity is unchanged from prior studies and remains typical in appearance for a meningioma. Again seen is postoperative change from left sided craniotomy. A thin low-attenuation fluid collection deep to craniotomy site is similar in appearance to previous. Emphysema. Large bilateral thyroid nodules as above. CXR-Emphysematous change with no active disease in the chest.
--- NOTE | 2019-03-07 16:44 | Hospitalist Progress Note ---
Date of Service March 07, 2019 Assessment & Plan (1) Seizure disorder: (2) Atypical meningioma of brain: -Head CTA is negative for acute intracranial finding however shows a small 2 mm left vertebral aneurysm - discussed with Neurologist Dr. Harvey - recommend to start Vimpat, continue usual Keppra - discussed with patient, she is understanding, agreeable, comfortable with the plan of care (3) Thyroid nodule: -Bilateral large thyroid nodules noted on CT neck -TSH 0.442 -Thyroid ultrasound: Multinodular thyroid gland. Dominant nodule within the lower pole of the left lobe measures 2.2 x 1.7 x 1.4 cm. Continued follow-up recommended to ensure stability. - outpatient follow up (4) DVT prophylaxis: SCDs only in light of brain aneursym noted on CTA Disposition PT/OT ordered lives at home with caregiver Subjective ff up for breakthrough seizures notified by RN as patient was having an apparent breakthrough seizure- dysarthria + right upper arm weakness/numbness seen at bedside, appears drowsy but oriented, slow speech, able to answer questions appropriately reports R arm is weak/numb, with generalized headache denies chest pain, dyspnea, palpitations, dizziness no other symptoms Review of Systems Review of Systems: All systems reviewed & are unremarkable except as noted in HPI & below Physical Exam Physical Exam: General- oriented x 3, not in distress, speaks in sentences with no effort or accessory muscle use- slow Head- atraumatic Eyes- PERRL, EOMI, anicteric ENT- oropharynx clear Neck- supple, no JVD, no adenopathy, no thyromegaly; carotids +2/2, no bruits appreciated Lungs- clear to auscultation bilaterally, no rales/wheezes Heart- normal rate, regular rhythm; no murmur, no gallop, no rub appreciated Abdomen- normal bowel sounds, nondistended, soft, nontender, no masses or hepatosplenomegaly Extremities- no pretibial edema, no calf tenderness; peripheral pulses intact Neuro- alert, oriented x 3 right facial droop, dyasthria- mild otherwise CN 2-12 grossly intact; right arm 0-1/5, otherwise motor 5/5 bilaterally; decreased sensation right arm otherwise sensation 100% on all extremities; no other gross focal neurologic deficits Skin- warm & dry Results & Data Vital Signs (Past 12 Hours) Vital Signs Temp Pulse Resp BP Pulse Ox 12/19/19 16:16 36.9 C 57 L 20 142/84 H 96 03/07/19 11:41 36.5 C 58 L 18 156/84 H 95 03/07/19 07:28 36.9 C 58 L 18 102/65 93 Laboratory Results Laboratory Results - last 24 hr 03/06/19 03/06/19 03/06/19 19:03 19:03 19:03 WBC 6.92 RBC 4.72 Hgb 14.6 Hct 43.9 MCV 93.0 MCH 30.9 MCHC 33.3 RDW Std Deviation 42.0 RDW Coeff of Sissy 12.4 Plt Count 263 MPV 9.3 Immature Gran % (Auto) 0.1 Neut % (Auto) 68.8 Lymph % (Auto) 23.0 [place] % (Auto) 6.8 Eos % (Auto) 0.7 Baso % (Auto) 0.6 Immature Gran # (Auto) 0.01 Neut # (Auto) 4.76 Lymph # (Auto) 1.59 [place] # (Auto) 0.47 Eos # (Auto) 0.05 Baso # (Auto) 0.04 Sodium 141 Potassium 4.0 Chloride 107 Carbon Dioxide 27 Anion Gap 6.0 BUN 17 Creatinine 0.75 Est Cr Clr Drug Dosing Not Reportable Est GFR ( Amer) 94.9 Est GFR (Non-Af Amer) 81.9 BUN/Creatinine Ratio 23.3 H Glucose 98 POC Glucose Calcium 9.4 Phosphorus 3.3 Magnesium 2.1 Total Bilirubin 0.7 AST 11 L ALT 16 Alkaline Phosphatase 111 Troponin I < 0.015 Total Protein 7.5 Albumin 4.0 Globulin 3.5 Albumin/Globulin Ratio 1.1 Lipase 97 TSH 0.442 Urine Color Urine Appearance Urine pH Ur Specific [place] Urine Protein Urine Glucose (UA) Urine Ketones Urine Blood Urine Nitrite Urine Bilirubin Urine Urobilinogen Ur Leukocyte Esterase Levetiracetam Pending 03/06/19 03/07/19 03/07/19 19:03 08:51 09:44 WBC 4.41 L RBC 4.28 Hgb 13.2 Hct 39.3 MCV 91.8 MCH 30.8 MCHC 33.6 RDW Std Deviation 41.9 RDW Coeff of Sissy 12.5 Plt Count 208 MPV 9.2 Immature Gran % (Auto) 0.2 Neut % (Auto) 57.6 Lymph % (Auto) 28.6 [place] % (Auto) 10.4 Eos % (Auto) 2.5 Baso % (Auto) 0.7 Immature Gran # (Auto) 0.01 Neut # (Auto) 2.54 Lymph # (Auto) 1.26 [place] # (Auto) 0.46 Eos # (Auto) 0.11 Baso # (Auto) 0.03 Sodium Potassium Chloride Carbon Dioxide Anion Gap BUN Creatinine Est Cr Clr Drug Dosing Est GFR ( Amer) Est GFR (Non-Af Amer) BUN/Creatinine Ratio Glucose POC Glucose 90 Calcium Phosphorus Magnesium Total Bilirubin AST ALT Alkaline Phosphatase Troponin I Total Protein Albumin Globulin Albumin/Globulin Ratio Lipase TSH Urine Color Yellow Urine Appearance Clear Urine pH 5.5 Ur Specific [place] 1.032 H Urine Protein Negative Urine Glucose (UA) Negative Urine Ketones 1+ H Urine Blood Negative Urine Nitrite Negative Urine Bilirubin Negative Urine Urobilinogen Negative Ur Leukocyte Esterase Negative Levetiracetam 03/07/19 09:44 WBC RBC Hgb Hct MCV MCH MCHC RDW Std Deviation RDW Coeff of Sissy Plt Count MPV Immature Gran % (Auto) Neut % (Auto) Lymph % (Auto) [place] % (Auto) Eos % (Auto) Baso % (Auto) Immature Gran # (Auto) Neut # (Auto) Lymph # (Auto) [place] # (Auto) Eos # (Auto) Baso # (Auto) Sodium 142 Potassium 3.9 Chloride 113 H Carbon Dioxide 26 Anion Gap 3.0 BUN 14 Creatinine 0.64 Est Cr Clr Drug Dosing 84.7 Est GFR ( Amer) 106.3 Est GFR (Non-Af Amer) 91.7 BUN/Creatinine Ratio 22.6 H Glucose 86 POC Glucose Calcium 8.3 L Phosphorus Magnesium 2.1 Total Bilirubin 0.8 AST 11 L ALT 13 Alkaline Phosphatase 91 Troponin I Total Protein 6.3 L Albumin 3.2 L Globulin 3.1 Albumin/Globulin Ratio 1.0 Lipase TSH Urine Color Urine Appearance Urine pH Ur Specific [place] Urine Protein Urine Glucose (UA) Urine Ketones Urine Blood Urine Nitrite Urine Bilirubin Urine Urobilinogen Ur Leukocyte Esterase Levetiracetam
[2019-03-07] MEDS: ACETAMINOPHEN 500 MG TAB PO PRN (20:30)
[2019-03-07] MEDS ORDERED: GADOBUTROL 65ML VIAL IV PRN (21:32)
--- NOTE | 2019-03-07 22:04 | Magnetic Resonance Report ---
MR brain seizure wo/w con CLINICAL HISTORY: 69 years-old Female presenting with right sided weakness, seizures following surger y, surgery on 02/16/2018. TECHNIQUE: Multisequence, multiplanar MR imaging of the brain was performed before and after the admi nistration of intravenous contrast. Dedicated thin section T2-weighted imaging of the temporal lobes was also performed as part of a dedicated seizure protocol. IV contrast: 6 mL of Gadavist. COMPARISON: 02/13/2018 and outside brain MR from 04/17/2018. FINDINGS: Localizer images: Unremarkable. Post surgical changes of left parietal craniotomy status post resection of the extra-axial left parie natalie mass. No residual nodular enhancement in the operative bed or in the subjacent dura or brain pare nchyma. The degree of dural enhancement diffusely is likely expected postsurgical change and is simil ar to prior exam March.Stable extra-axial fluid collection in the operative bed measuring 14 mm in maximal thickness with a stable degree of subjacent mass effect on the left parietal lobe. T2 hyperin tensity of the subcortical white matter and overlying fitzgerald matter in the left parietal lobe immediate ly subjacent to the operative bed consistent with encephalomalacia (series 5 image 19). FLAIR imaging demonstrates more extensive subcortical white matter signal abnormality that is new from the most re cent prior exam. This extends to the periatrial white matter. No evidence of enhancement at this site . Normal midline sagittal structures. Ventricles and sulci normal in size. No midline shift. No restric jessica diffusion or hemorrhage. Few scattered T2/FLAIR hyperintense foci in the white matter likely age- related change. T2 skull base flow voids preserved. IMPRESSION: 1. Redemonstration of postoperative changes of left parietal craniotomy and extra-axial mass resecti on with a persistent extra-axial fluid collection in the operative bed. Unchanged degree of mass effe ct on the subjacent left parietal lobe since March. Limited focus of encephalomalacia in the subjac ent brain parenchyma involving the fitzgerald matter is unchanged. 2. Interval development of more widespread flair signal abnormality in the subcortical white matter extending to the periatrial white matter. This may represent gliosis if the patient has received radi ation treatment. Correlate with the patient's history. This could either be unrelated to seizure or r epresent a potential nidus for or sequela of seizure. 3. No evidence of residual or recurrent disease. ACT 112: Negative or not required by law. Electronically signed by: Pj Capps M.D. 03/07/2019 10:03 PM
[2019-03-08] MEDS: OXYCODONE HCL IR 5 MG TAB (IMMEDIATE RELEASE) PO PRN ×5 (01:59→18:51)
[2019-03-08 05:53] LABS: Basophils # (auto) 0.04 K/uL (0-0.2); Basophils % (auto) 0.8 %; Eosinophils # (auto) 0.18 K/uL (0-0.5); Eosinophils % (auto) 3.7 %; Hematocrit (blood only) 38.4 % (37-47); Hemoglobin 12.8 g/dL (12.0-16.0); Lymphocytes # (auto) 1.62 K/uL (1.2-3.4); Lymphocytes % (auto) 33.3 %; Mean Corpuscular Hemoglobin 30.6 pg (25-34); Mean Corpuscular Hgb Conc 33.3 g/dL (32-36); Mean Corpuscular Volume 91.9 fL (80-100); Mean Platelet Volume 9.2 fL (7.4-10.4); Monocytes # (auto) 0.42 K/uL (0.11-0.59); Monocytes % (auto) 8.6 %; Neutrophils % (auto) 53.6 %; Platelet Count 209 K/uL (130-400); RDW Coefficient of Variation 12.1 % (11.5-14.5); RDW Standard Deviation 41.2 fL (36.4-46.3); Red Blood Count 4.18 M/uL (4.2-5.4); White Blood Count 4.86 K/uL (4.8-10.8)
[2019-03-08 06:38] LABS: Albumin Level 3.1 gm/dl (3.4-5.0); BUN Creatinine Ratio 20.5 (10-20); Calcium 8.7 mg/dl (8.5-10.1); Creatinine Clr Calc Pharmacy 88.9 ml/min; Est GFR (Non-African American) 93.1; Magnesium 2.1 mg/dl (1.8-2.4); Potassium 3.6 mmol/L (3.5-5.1)
[2019-03-08 06:40] LABS: Albumin Globulin Ratio 1.1 (0.9-2); Bilirubin,Total 0.8 mg/dl (0.2-1); Globulin 2.8 gm/dl (2.5-4.0); Total Protein 5.9 gm/dl (6.4-8.2)
[2019-03-08] MEDS: PANTOprazole 40 MG TAB PO SCH (08:18)
[2019-03-08] MEDS: CHOLECALCIFEROL 1,000 UNITS TAB PO SCH (08:19)
[2019-03-08] MEDS: ACETAMINOPHEN 500 MG TAB PO PRN ×2 (09:18→17:40)
[2019-03-08] MEDS: LACOSAMIDE 50 MG TABLET PO SCH ×2 (10:02→21:59)
[2019-03-08] MEDS: levETIRAcetam 500 MG TAB PO SCH ×2 (10:02→21:59)
--- NOTE | 2019-03-08 11:47 | Hospitalist Progress Note ---
Date of Service March 08, 2019 Assessment & Plan (1) Seizure disorder: (2) Atypical meningioma of brain: -Head CTA is negative for acute intracranial finding however shows a small 2 mm left vertebral aneurysm - discussed with Neurologist Dr. Harvey - recommend to start Vimpat, continue usual Keppra - Brain MRI: 1. Redemonstration of postoperative changes of left parietal craniotomy and extra-axial mass resection with a persistent extra-axial fluid collection in the operative bed. Unchanged degree of mass effect on the subjacent left parietal lobe since March. Limited focus of encephalomalacia in the subjacent brain parenchyma involving the fitzgerald matter is unchanged. 2. Interval development of more widespread flair signal abnormality in the subcortical white matter extending to the periatrial white matter. This may represent gliosis if the patient has received radiation treatment. Correlate with the patient's history. This could either be unrelated to seizure or represent a potential nidus for or sequela of seizure. 3. No evidence of residual or recurrent disease. 03/08/2019 No recurrence of seizure symptoms since yesterday morning Discussed with neurology service, recommend transfer to [facility] for long-term EEG monitoring Discussed with neurologist on-call Dr. Carnes at [facility], he kindly accepted the patient (3) Thyroid nodule: -Bilateral large thyroid nodules noted on CT neck -TSH 0.442 -Thyroid ultrasound: Multinodular thyroid gland. Dominant nodule within the lower pole of the left lobe measures 2.2 x 1.7 x 1.4 cm. Continued follow-up recommended to ensure stability. - will need outpatient evaluation and follow-up (4) DVT prophylaxis: SCDs only in light of brain aneursym noted on CTA Disposition Transfer to [facility] Discussed with patient, in detail and at length, she is understanding, agreeable, comfortable with plan of care Subjective Follow-up for breakthrough seizures Seen resting in bed, appears more alert, in better spirits today No witnessed or reported seizure episode, aphasia, unilateral weakness States she feels better overall Has mild headache, no other symptoms Review of Systems Review of Systems: All systems reviewed & are unremarkable except as noted in HPI & below Physical Exam Physical Exam: General- oriented x 3, not in distress, speaks in sentences with no effort or accessory muscle use Eyes- anicteric Neck- no JVD Lungs- clear breath sounds bilaterally, no crackles, no wheezing Heart- normal rate, regular rhythm; no murmurs Abdomen- normal bowel sounds, nondistended, soft, nontender Extremities- no pretibial edema, no calf tenderness Neuro- alert, oriented x 3; no gross focal neurologic deficits Skin- warm & dry Results & Data Vital Signs (Past 12 Hours) Vital Signs Temp Pulse Resp BP Pulse Ox 03/08/19 07:38 36.6 C 57 L 20 113/73 95 Laboratory Results Laboratory Results - last 24 hr 03/08/19 03/08/19 05:36 05:36 WBC 4.86 RBC 4.18 L Hgb 12.8 Hct 38.4 MCV 91.9 MCH 30.6 MCHC 33.3 RDW Std Deviation 41.2 RDW Coeff of Sissy 12.1 Plt Count 209 MPV 9.2 Immature Gran % (Auto) 0.0 Neut % (Auto) 53.6 Lymph % (Auto) 33.3 [place] % (Auto) 8.6 Eos % (Auto) 3.7 Baso % (Auto) 0.8 Immature Gran # (Auto) 0.00 Neut # (Auto) 2.60 Lymph # (Auto) 1.62 [place] # (Auto) 0.42 Eos # (Auto) 0.18 Baso # (Auto) 0.04 Sodium 139 Potassium 3.6 Chloride 111 H Carbon Dioxide 29 Anion Gap -1.0 L BUN 12 Creatinine 0.61 Est Cr Clr Drug Dosing 88.9 Est GFR ( Amer) 108.0 Est GFR (Non-Af Amer) 93.1 BUN/Creatinine Ratio 20.5 H Glucose 84 Calcium 8.7 Magnesium 2.1 Total Bilirubin 0.8 AST 11 L ALT 12 Alkaline Phosphatase 87 Total Protein 5.9 L Albumin 3.1 L Globulin 2.8 Albumin/Globulin Ratio 1.1
--- NOTE | 2019-03-08 14:15 | Discharge Summary ---
Date of Service March 08, 2019 Admission HPI Per Admitting Provider 69-year-old female who presents the ED with generalized weakness. Patient with history of brain meningioma s/p resection and seizure disorder. Patient reports she has been having issues with breakthrough seizures over the past 1 year. Patient correlates these breakthrough seizures with changes in her Keppra (pill versus liquid, brand versus generic). Patient was recently changed from liquid Keppra to pill form Keppra about 12 days ago. Patient reports she continues to have breakthrough seizures and headaches. Last seizure was yesterday afternoon. Patient reports her seizures presented strokelike symptoms with loss of speech and right arm numbness and weakness. Patient's home health nurse evaluated the patient today and referred the patient to the ER. Patient denies any recent illnesses, fevers, chills. No abdominal pain, nausea, vomiting, diarrhea. Denies chest pain or shortness of breath. No urinary symptoms. In the ED, patient is hemodynamically stable, labs are unremarkable. She has not had any seizure-like activity. 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 Patient was given IVF. Admission Exam Per Admitting Provider General- No acute distress Head- atraumatic Eyes- PERRL, EOMI, ENT- oropharynx clear, mild swelling and tenderness around the left area of her neck Neck- supple, no JVD Lungs- clear to auscultation Heart- regular rhythm; no murmur Abdomen- normal bowel sounds, soft, nontender Extremities- no calf tenderness Neuro- alert, oriented x 3; PERRL, EOMI; no facial palsy; no dysarthria Skin- warm & dry Principal Diagnosis BREAKTHROUGH SEIZURES Discharge Exam General- oriented x 3, not in distress, speaks in sentences with no effort or accessory muscle use Eyes- anicteric Neck- no JVD Lungs- clear breath sounds bilaterally, no crackles, no wheezing Heart- normal rate, regular rhythm; no murmurs Abdomen- normal bowel sounds, nondistended, soft, nontender Extremities- no pretibial edema, no calf tenderness Neuro- alert, oriented x 3; no gross focal neurologic deficits Skin- warm & dry Discharge Data Allergies Allergy/AdvReac Type Severity Reaction Status Date / Time Penicillins Allergy Severe ANAPHYLAXIS Verified 03/06/19 20:14 aspirin AdvReac Severe SWELLING Verified 03/06/19 20:15 OF ESOPHAGUS propoxyphene AdvReac Severe SWELLING Verified 03/06/19 20:15 TO ESOPHAGUS codeine AdvReac Intermediate VOMITTING Verified 03/06/19 20:15 hydromorphone [From Dilaudid] AdvReac Difficulty Verified 03/06/19 20:15 Breathing Consultations 03/06/19 21:01 ED Decision to Admit Stat 03/07/19 08:55 Consult Neurology Routine 03/08/19 13:59 Burn CD for patient Routine Ordered Studies 03/06/19 18:39 CT angio head w con Stat CT angio neck with con Stat CT head/brain wo con Stat FINDINGS: Brain parenchyma: There is a small low-attenuation extra-axial fluid collection along the left convexity measuring up to 10 mm deep to the craniotomy site. Again seen is a small focus of high left frontal encephalomalacia at the site of previous surgical resection. There is no hemorrhage, mass effect, or evidence of acute territorial ischemia by CT criteria. Glez-white matter differentiation is preserved. No enhancing lesion is clearly identified on the postcontrast sequences. There is unchanged appearance of a 2.5 cm densely calcified extra- axial lesion along the left temporal convexity. There is no significant associated mass effect, and the appearance remains typical for a meningioma. Thoracic aorta: Visualized portions of the thoracic aorta are normal in caliber. The aortic arch demonstrates standard 3-vessel anatomy. Right carotid arterial system: The right common carotid artery is widely patent, as are the right internal and external carotid arteries. Left carotid arterial system: The left common carotid artery is widely patent, as are the left internal and external carotid arteries. Vertebral arteries: The vertebral arteries are widely patent bilaterally noting left-sided dominance. 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 Intracranial vasculature: There is mild atherosclerotic calcification of the cavernous carotid arteries. There is a large right posterior communicating eda ry. The internal carotid arteries are patent at the skull base, as are the anterior and middle cerebral arteries bilaterally. The vertebrobasilar system and posterior cerebral arteries are widely patent. The left vertebral artery is dominant. There is no aneurysm, high-grade stenosis, or focal vessel cut off seen throughout the intracranial circulation. Jugular veins: Patent bilaterally. Dural sinuses: Patent. Lung apices: Advanced emphysematous change is noted in the upper lobes. Upper lobe lung parenchyma is otherwise clear as imaged. Soft tissues: The visualized pharyngeal soft tissues are normal in appearance noting angiographic phase technique. The oropharyngeal airway appears widely patent. There are large bilateral thyroid nodules. The largest nodules on the left and measures up to 1.9 cm. The salivary glands are normal in appearance. No cervical lymphadenopathy is seen. Skeletal structures: The skeletal structures are osteopenic. There is postoperative change from left temporoparietal craniotomy. The calvarium is otherwise intact. The cervical spine is maintained noting mild spondylosis. Sinuses and mastoids: The paranasal sinuses are clear. The mastoid air cells are well pneumatized. IMPRESSION: 1. There is no hemorrhage, mass effect, or evidence of acute territorial ischemia by CT criteria. 2. Unremarkable CT angiogram of the brain. 3. 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 4. Otherwise unremarkable CT angiogram of the neck. 5. A 2.5 cm calcified lesion along the left temporal convexity is unchanged from prior studies and remains typical in appearance for a meningioma. 6. Again seen is postoperative change from left sided craniotomy. A thin low- attenuation fluid collection deep to craniotomy site is similar in appearance to previous. 7. Emphysema. 8. Large bilateral thyroid nodules as above. 03/07/19 00:01 US thyroid Routine Right lobe: 5.3 x 1.8 x 1.7 cm. Multiple small hypoechoic nodules with the larg est in the lower pole measuring 1.5 x 1.3 x 1.1 cm. Left lobe: 5.5 x 1.8 x 2.1 cm. Multiple nodules with the largest in the lower pole measuring 2.2 x 1.4 x 1.7 cm. There is also a 2 cm hypoechoic interpolar nodule. Isthmus: 2 mm in thickness. A 9 mm slightly hypoechoic nodule. IMPRESSION: Multinodular thyroid gland. Dominant nodule within the lower pole of the left lobe measures 2.2 x 1.7 x 1.4 cm. Continued follow-up recommended to ensure stability. 03/07/19 16:30 MR brain seizure wo/w con Routine IMPRESSION: 1. Redemonstration of postoperative changes of left parietal craniotomy and e xtra-axial mass resection with a persistent extra-axial fluid collection in the operative bed. Unchanged degree of mass effect on the subjacent left parietal lobe since March. Limited focus of encephalomalacia in the subjacent brain parenchyma involving the glez matter is unchanged. 2. Interval development of more widespread flair signal abnormality in the subcortical white matter extending to the periatrial white matter. This may represent gliosis if the patient has received radiation treatment. Correlate with the patient's history. This could either be unrelated to seizure or represent a potential nidus for or sequela of seizure. 3. No evidence of residual or recurrent disease. 03/08/19 13:30 FL barium swallow Routine FINDINGS: Ingestion: The patient was able to ingest barium without difficulty. The pill was administered, which was held up at the level of the gastroesophageal junction. Despite repeated administration of water, the pill did not pass by the conclusion of the exam. Aspiration: None. Esophageal mucosa: Normal. No evidence of intrinsic or extrinsic mass lesion. Esophageal motility: Ineffective secondary contractions along with tertiary contractions consistent with dysmotility. Esophageal length: Normal. Gastroesophageal junction: Trace hiatal hernia may be present if any. Reflux: Gastroesophageal reflux evident. Gastric emptying: Not evaluated. Fluoroscopy dosage (mGy): Not available. Fluoroscopy time: 2.4 minutes. Number or time of high level fluoroscopy (HLF), digital spot, or digital subtraction images: 28. IMPRESSION: 1. Esophageal dysmotility. This could relate to presbyesophagus among other possible etiologies. 2. Holdup of the barium pill at the gastroesophageal junction without convincing evidence of a mass. Endoscopy could be considered if there is clinical concern. No holdup of liquids. 3. Gastroesophageal reflux. Hospital Course (1) Seizure disorder: (2) Atypical meningioma of brain: -Head CTA is negative for acute intracranial finding however shows a small 2 mm left vertebral aneurysm - discussed with Neurologist Dr. Harvey - recommend to start Vimpat 100mg BID, continue usual Keppra 1,500mg BID - Brain MRI: 1. Redemonstration of postoperative changes of left parietal craniotomy and extra-axial mass resection with a persistent extra-axial fluid collection in the operative bed. Unchanged degree of mass effect on the subjacent left parietal lobe since March. Limited focus of encephalomalacia in the subjacent brain parenchyma involving the glez matter is unchanged. 2. Interval development of more widespread flair signal abnormality in the subcortical white matter extending to the periatrial white matter. This may represent gliosis if the patient has received radiation treatment. Correlate with the patient's history. This could either be unrelated to seizure or represent a potential nidus for or sequela of seizure. 3. No evidence of residual or recurrent disease. 03/08/2019 No recurrence of seizure symptoms since yesterday morning Discussed with neurology service, recommend transfer to [facility] for long-term EEG monitoring Discussed with neurologist on-call Dr. Carnes at [facility], he kindly accepted the patient (3) Thyroid nodule: -Bilateral large thyroid nodules noted on CT neck -TSH 0.442 -Thyroid ultrasound: Multinodular thyroid gland. Dominant nodule within the lower pole of the left lobe measures 2.2 x 1.7 x 1.4 cm. Continued follow-up recommended to ensure stability. - will need outpatient evaluation and follow-up (4) Esophageal dysmotility: Barium Swallow ordered by GI as outpatient done while patient admitted no acute symptoms in terms of dysphagia results of Ba Swallow as noted in Procedure Section above GI COREY Kingsley discussed results with patient and plan is for outpatient ff up with Dr. Burgess (5) DVT prophylaxis: SCDs only in light of brain aneursym noted on CTA Disposition Transfer to [facility] Discussed with patient, in detail and at length, she is understanding, agreeable, comfortable with plan of care Total Time Total Time Spent Total Time Spent (In Minutes): 55 minutes Discharge Plan Discharge Items Patient Disposition: Transfer Acute Care Hospital Reason For Visit: WEAKNESS Discharge Diagnosis: Breakthrough seizures Activity: As commented below Activity Comment: Resume activity gradually as tolerated Lifting: Wait until after follow-up appointment Exercise/Sports: Wait until after follow-up appointment Driving/Machine Use: No driving Non-emergency contact: Primary Care Provider and Neurologist Call non-emergency contact if: you have any medication questions, your symptoms worsen, your pain is not controlled, your pain is worsening, your pain is unusual for you, your pain is concerning for you and you have a fever Follow-up/Referrals: Kelsey Albarado DO [Primary Care Provider] - 03/15/19 3:00 pm Diet: Heart Healthy Addtl Attending Provider Instructions: Please refer to accompanying hospital discharge summary for further details. Pending Studies at Discharge: Yes Studies:: Long-term EEG monitoring, further evaluation management of thyroid nodules Stand-Alone Forms: My [facility] Skilled Items Patient informed of condition?: Yes DNR: Yes Discharge Level of Care: Other Communicable Disease: No Discharge Prognosis: Improving Lines: None Urinary Catheter: No Medications and DC Order Prescriptions: New oxycodone 5 mg Tablet 2.5 mg PO Q4H PRN (Reason: pain) Qty: 7 RF: 0 Vimpat 50 mg Tablet 100 mg PO BID 30 Days Qty: 120 RF: 0 Continued acetaminophen [Tylenol Extra Strength] 500 mg Tablet 500 mg PO TID PRN (Reason: Pain) RF: 0 pantoprazole [Protonix] 20 mg Tablet,Delayed Release (Dr/Ec) 40 mg PO DAILY RF: 0 Vitamin D2 2,000 units 1 tab PO DAILY RF: 0 levetiracetam [Keppra] 500 mg Tablet 1,500 mg PO BID RF: 0 Changed oxycodone 5 mg Tablet 2.5 mg PO QID PRN (Reason: Pain, Severe) Qty: 0 RF: 0 Discharge Orders: Discharge Order (Routine); Ordered 03/08/19 Ordered By: Reece Barriga Admission Data Admit Date/Time: 03/06/19 22:37 Attending Provider: Reece Barriga Admit Provider: Mimi Nelson Primary Care Provider: Kelsey Albarado Other Providers: Mimi Nelson ; Kyle Harvey
--- NOTE | 2019-03-08 14:18 | Fluoroscopy Report ---
FL barium swallow CLINICAL HISTORY: 69 years-old Female presenting with ESOPHAGEAL DYSMOTILITY, difficulty swallowing, reflux, pills sticking in throat, history of throat biopsy in 2010. TECHNIQUE: A routine air-contrast (double contrast) barium esophagram was performed. Multiple spot im ages of the esophagus were acquired both upright and prone. COMPARISON: None. FINDINGS: Ingestion: The patient was able to ingest barium without difficulty. The pill was administered, which was held up at the level of the gastroesophageal junction. Despite repeated administration of water, the pill did not pass by the conclusion of the exam. Aspiration: None. Esophageal mucosa: Normal. No evidence of intrinsic or extrinsic mass lesion. Esophageal motility: Ineffective secondary contractions along with tertiary contractions consistent w ith dysmotility. Esophageal length: Normal. Gastroesophageal junction: Trace hiatal hernia may be present if any. Reflux: Gastroesophageal reflux evident. Gastric emptying: Not evaluated. Fluoroscopy dosage (mGy): Not available. Fluoroscopy time: 2.4 minutes. Number or time of high level fluoroscopy (HLF), digital spot, or digital subtraction images: 28. IMPRESSION: 1. Esophageal dysmotility. This could relate to presbyesophagus among other possible etiologies. 2. Holdup of the barium pill at the gastroesophageal junction without convincing evidence of a mass. Endoscopy could be considered if there is clinical concern. No holdup of liquids. 3. Gastroesophageal reflux. ACT 112: Negative or not required by law. Electronically signed by: Pj Capps M.D. 03/08/2019 2:16 PM
--- NOTE | 2019-03-08 17:38 | Neurology Progress Note ---
Date of Service March 08, 2019 Assessment & Plan (1) Seizure disorder: 1. continue Keppra 1500 mg q 12 hours 2. Vimpat 100 mg BID added continue 3. patient dose not drive but would not be eligible for 6 months seizure free 4. no swimming or bathing alone 5. no heights 6. fall precautions 7. follow up with Dr Nieves in neurology 4-6 weeks after discharge 8. will need neurovascular follow up for survey on 2 mm aneurysm incidentally found 9. needs LTM at [place] to be evaluated for seizure events- to clarify events and need for additional seizure medications (2) Atypical meningioma of brain: 1. follow up with neurosurgery as scheduled 2. radiation oncology as scheduled. 3. MRI brain with and without evaluation of any further lesions- no new findings 4. small 2 mm aneurysm follow up with neurovascular Supervising Physician Co-Signing Physician Notes I have seen and discussed above patient with Dr Saritha Nieves, neurology. Patient seen and examined she is known to me she has a history of resection left temporal meningioma. She has had recurrent episodes of 20 minutes to 1 hour of weakness in the right arm tingling of the right arm and muteness or language dysfunction. There may be a headache that follows. Patient had some initial reduction with Keppra but multiple side effects and felt that some of this was related to brand versus generic versus multiple generic types, elixir versus non-elixir. Is been hard to the patient in the office because of transportation issues she did wear an ambulatory EEG and did not have an episode while wearing. MRI of the brain shows no evidence of recurrence of the resected meningioma although there are at least 1 additional meningioma seen on CAT scan. Exam the patient is awake and alert mild dysarthria. No visual field cut no facial asymmetry no asymmetric weakness in the uppers. Impression simple partial seizures versus partial complex versus other migrainous event. We need to capture 1 of these episodes and recommend transfer to an EMU for monitoring. In the interim agree with the addition of Vimpat Laura may hold that while she is monitored. Continue Keppra 2. vertebral artery aneurysm, asymptomatic recommend having patient see neurovascular. Radiation vasculopathy. Follow-up with radiation therapy Saritha Scales Nabila is a 69 year old female with PMH brain meningioma s/p resection and seizure disorder. She has been having breakthrough seizures over the past 1 year. She feels the breakthrough seizures with changes in her Keppra (pill versus liquid, brand versus generic). About 12 days ago she was changed back to pill form brand necessary. She continues to have breakthrough seizures and headaches. The seizures are characterized by slurred speech and right arm numbness and weakness. She is currently on Keppra 1500 mg q 12 hours and was started on Vimpat 100 mg BID. denies CP, SOB, abdominal pain, one sided weakness, numbness tingling N, V, new bowel or bladder issues. Physical Exam Physical Exam: Gen: alert NAD PERRLA/EOMI lungs normal respiration effort CV RRR moves all ext spontaneously Results & Data Vital Signs (Past 12 Hours) Vital Signs Temp Pulse Resp BP Pulse Ox 03/08/19 14:42 36.4 C L 62 20 148/72 H 96 03/08/19 07:38 36.6 C 57 L 20 113/73 95 Laboratory Results Abnormal lab results 03/08/19 03/08/19 Range/Units 05:36 05:36 RBC 4.18 L (4.2-5.4) M/uL Chloride 111 H (98-107) mmol/L Anion Gap -1.0 L (3-11) BUN/Creatinine Ratio 20.5 H (10-20) AST 11 L (15-37) U/L Total Protein 5.9 L (6.4-8.2) gm/dl Albumin 3.1 L (3.4-5.0) gm/dl Diagnostic Findings swallowing study-Esophageal dysmotility. This could relate to presbyesophagus among other possible etiologies. Holdup of the barium pill at the gastroesophageal junction without convincing evidence of a mass. Endoscopy could be considered if there is clinical concern. No holdup of liquids. Gastroesophageal reflux MRI brain- Redemonstration of postoperative changes of left parietal craniotomy and extra-axial mass resection with a persistent extra-axial fluid collection in the operative bed. Unchanged degree of mass effect on the subjacent left parietal lobe since March. Limited focus of encephalomalacia in the subjacent brain parenchyma involving the fitzgerald matter is unchanged. Interval development of more widespread flair signal abnormality in the subcortical white matter extending to the periatrial white matter. This may represent gliosis if the patient has received radiation treatment. Correlate with the patient's history. This could either be unrelated to seizure or represent a potential nidus for or sequela of seizure. No evidence of residual or recurrent disease..
[2019-03-09] MEDS: OXYCODONE HCL IR 5 MG TAB (IMMEDIATE RELEASE) PO PRN (01:46)
[2019-03-09] MEDS: ACETAMINOPHEN 500 MG TAB PO PRN (01:53)
== END 2019-03-09 02:00 | disposition short-term general hospital (02) | DRG 101 ==
LOC: ED 18:21 → 2N 22:37

== ENCOUNTER 2021-02-04 17:17 | Inpatient (IN) ==
--- NOTE | 2021-02-04 19:10 | XRay Report ---
SINGLE VIEW PELVIS; 2 VIEWS RIGHT HIP CLINICAL HISTORY: Atraumatic right hip pain. FINDINGS: An AP view of the pelvis with AP and frog-leg views of the right hip are compared to study dated 09/25/2017 and correlated with pelvic CT dated 07/26/2018. The skeletal structures are osteopenic. There is no radiographic evidence of acute fracture involving the hips or bony pelvis. A bipolar left hip arthroplasty is in near-anatomic alignment. Minimal degenerative joint space narrowing is noted in the right hip. There is mild degenerative sclerosis in the sacroiliac joints. The overlying soft t issues are within normal limits. There is no evidence of bowel obstruction. IMPRESSION: No acute bony abnormality is identified. Electronically signed by: Jigar Cota M.D. 02/04/2021 7:09 PM
[2021-02-04] MEDS ORDERED: oxyCODONE HCL IR 5 MG TAB (IMMEDIATE RELEASE) PO STA (21:44)
--- NOTE | 2021-02-04 21:49 | Emergency Department Note ---
Impression & Plan Acute pain of right hip, Intractable pain ED Provider Note Name: SUZETTE PETERSEN Age: 70 Sex: F Arrives Via: Walk-In Informant: Patient ED Provider: Ke Conner MD Chief Complaint: hip pain Impression: As Per Impressions Above Medical Decision Makin yr old female with acute right hip pain. Pain with walking around parking lot earlier. Unable to ambulate now. Exam benign with no swelling, bruising, rashes, erythema. Distal n/v intact without swelling. Initial xray negative. CT of pelvis and hip without fracture. Small amount of fluid right hip which I suspect is secondary to MSK of some sort. She is afebrile without other evidence of infection. There is no low back pain involve. There is no leg swelling nor edema. She is unable to ambulate due to this pain and in such, and having no one at home to help her, I do not see much other option than hospitalize and further management. Prior Medical Record and Triage/Nursing Notes reviewed by Me Additional history obtained from chart Differentials:Fracture, dislocation, neurovascular compromise, compartment syndrome, soft tissue injury, as well as other pathologies. Vital Signs: reviewed and remarkable for htn Interventions: oxy IR 5mg PO, morphine 4mg iv, zofran 4mg iv Labs:Reviewed and remarkable for no significant abnormalities Imaging:See Below Consults:Dr Mendoza Plan: Disposition: Hospitalization Condition: Good History of Present Illness:70 yr old female arrives for evaluation of right groin pain. Patient notes she was walking around the parking lot at 3:30 this afternoon with sudden onset right anterior groin pain. So severe she could not walk any more. States similar to previous hip fractures on left side. No fall, trauma, nor inciting incident other than walking. No nausea, vomiting, fevers, chills, bruising, bleeding rashes, abdominal pain, back pain, weakness in leg, swelling, nor other symptoms. No medications prior to arrival. Movement makes worse, rest makes better. States it is currently throbbing. No previous right hip/groin injuries. ROS: See above HPI for pertinent positives & negatives. A total of 10 systems reviewed and were otherwise negative. Past Medical History:See Below Past Surgical History:See Below Family History:See Below Social History:See Below Home Medications:See Below Allergies:See Below Vitals:Blood Pressure: 155/75, Pulse 74, RR 18, T 36.6C, O2 98% on RA Physical Exam: GENERAL: Patient is uncomfortable appearing and in moderate distress. EYES: No scleral icterus, unremarkable pupils. RESPIRATORY: No dyspnea. Clear to auscultation and equal bilaterally. No wheeze, no rhonchi. CARDIOVASCULAR: Regular rate and rhythm.No murmurs, rubs, gallops appreciated. GASTROINTESTINAL: TTP right anterior groin without swelling nor erythema nor fluctuance. Abdomen soft, non-tender, no peritonitis.Bowel sounds positive.No masses appreciated. EXTREMITIES: Normal motion all extremities, no cyanosis, no edema. NEUROLOGIC: Alert and oriented, no acute motor or sensory deficits, no focal weakness, cranial nerves grossly intact. SKIN: No rash, no jaundice, no diaphoresis. PSYCH: Appropriate GCS: 15 ED Course: Times/Reassessments: Continued pain Ke Conner MD Past Med/Surg History Medical History (Updated 02/05/21 @ 00:10 by Ke Conner MD) Atypical meningioma of brain Esophageal stricture GERD (gastroesophageal reflux disease) Headache Seizure disorder Nonepileptic Surgical History H/O nasal septoplasty History of appendectomy History of hip replacement Family History Grandmother Uterine cancer Mother , age 31 from suicide No problems noted. Father , in his 20s from a motor vehicle accident No problems noted. 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 other: Former employee at [employer] Feels Safe at Home: Yes Assistive Devices: Walker Allergies Allergies Allergy/AdvReac Type Severity Reaction Status Date / Time Penicillins Allergy Severe ANAPHYLAXIS Verified 12/30/20 13:30 topiramate [From Topamax] Allergy Unknown Verified 12/30/20 13:30 aspirin AdvReac Severe SWELLING Verified 12/30/20 13:30 OF ESOPHAGUS propoxyphene AdvReac Severe SWELLING Verified 12/30/20 13:30 TO ESOPHAGUS codeine AdvReac Intermediate VOMITTING Verified 12/30/20 13:30 hydromorphone [From Dilaudid] AdvReac Difficulty Verified 12/30/20 13:30 Breathing Home Meds Home Medications Medication Instructions Recorded Confirmed acetaminophen 500 mg tablet 1,000 mg PO Q8H tab 01/01/20 12/30/20 (Tylenol Extra Strength) diazepam 2 mg tablet 1 mg PO TID PRN tab 09/29/20 12/30/20 Previous Rx's Medication Instructions Recorded gabapentin 100 mg capsule 100 mg PO TID #90 cap 09/29/20 Results & Data (ED) Vital Signs Vital Signs - 24 hr 02/04/21 17:39 02/04/21 21:09 Temperature 36.6 C Temperature Source Oral Pulse Rate 74 Respiratory Rate 20 18 Respiratory Effort / Characteristics Non-Labored Respiratory Depth Normal Normal Respiratory Pattern Regular Blood Pressure 146/81 H Blood Pressure [Left Arm] 155/75 H Blood Pressure Mean 102 Blood Pressure Mean [Left Arm] 101 Blood Pressure Position [Left Arm] Lying Pulse Oximetry 95 98 Oxygen Delivery Method Room Air Room Air Sepsis Recent Fever Within 48 Hours No Sepsis New/Unexplained Change in Mental Status No Sepsis Action Taken by Nursing No Action Required Laboratory Data Result diagrams: 02/04/21 23:55 02/04/21 23:55 Lab Results 02/04/21 02/04/21 Range/Units 23:55 23:55 WBC 8.01 (4.8-10.8) K/uL RBC 4.57 (4.2-5.4) M/uL Hgb 14.4 (12.0-16.0) g/dL Hct 43.0 (37-47) % MCV 94.1 (80-100) fL MCH 31.5 (25-34) pg MCHC 33.5 (32-36) g/dL RDW Std Deviation 42.8 (36.4-46.3) fL RDW Coeff of Sissy 12.5 (11.5-14.5) % Plt Count 259 (130-400) K/uL MPV 10.1 (7.4-10.4) fL Immature Gran % (Auto) 0.2 % Neut % (Auto) 72.1 % Lymph % (Auto) 17.7 % Woodward % (Auto) 8.9 % Eos % (Auto) 0.7 % Baso % (Auto) 0.4 % Neut # (Auto) 5.77 (1.4-6.5) K/uL Lymph # (Auto) 1.42 (1.2-3.4) K/uL Woodward # (Auto) 0.71 H (0.11-0.59) K/uL Eos # (Auto) 0.06 (0-0.5) K/uL Baso # (Auto) 0.03 (0-0.2) K/uL Immature Gran # (Auto) 0.02 (0.00-0.02) K/uL Sodium 139 (136-145) mmol/L Potassium 3.9 (3.5-5.1) mmol/L Chloride 108 H (98-107) mmol/L Carbon Dioxide 28 (21-32) mmol/L Anion Gap 3.0 (3-11) BUN 20 H (7-18) mg/dl Creatinine 0.63 (0.6-1.2) mg/dl Est Cr Clr Drug Dosing Not Reportable Est GFR ( Amer) 106.1 ml/min Est GFR (Non-Af Amer) 91.5 ml/min BUN/Creatinine Ratio 32.4 H (10-20) Glucose 94 (70-99) mg/dl Calcium 9.4 (8.5-10.1) mg/dl Administered Medications Discontinued Medications Morphine Sulfate (Morphine Sulfate 4 Mg/Ml 1 Ml Carp\Vial) 4 mg IV NOW STA Stop: 02/04/21 23:44 Last Admin: 02/05/21 00:10 Dose: 4 mg Documented by: [id number] Oxycodone HCl (Oxycodone Hcl Ir 5 Mg Tab (Immediate Release)) 5 mg PO NOW STA Stop: 02/04/21 21:45 Last Admin: 02/04/21 21:54 Dose: 5 mg Documented by: [id number] Imaging Data Radiologist's Impression: Hip/Pelvis X-Ray 02/04/21 17:44 SINGLE VIEW PELVIS; 2 VIEWS RIGHT HIP CLINICAL HISTORY: Atraumatic right hip pain. FINDINGS: An AP view of the pelvis with AP and frog-leg views of the right hip are compared to study dated 09/25/2017 and correlated with pelvic CT dated 07/26/2018. The skeletal structures are osteopenic. There is no radiographic evidence of acute fracture involving the hips or bony pelvis. A bipolar left hip arthroplasty is in near-anatomic alignment. Minimal degenerative joint space narrowing is noted in the right hip. There is mild degenerative sclerosis in the sacroiliac joints. The overlying soft tissues are within normal limits. There is no evidence of bowel obstruction. IMPRESSION: No acute bony abnormality is identified. Electronically signed by: Jigar Cota M.D. 02/04/2021 7:09 PM Discharge Plan Visit Data Chief Complaint: Hip Pain Stated Complaint: BROKEN R HIP ED Provider: Ke Conner Discharge Problem: Acute pain of right hip, Intractable pain Forms Stand Alone Forms: [facility] Prescriptions Prescriptions: No Action acetaminophen [Tylenol Extra Strength] 500 mg tablet 1,000 mg PO Q8H RF: 0 diazepam 2 mg tablet 1 mg PO TID PRNRF: 0 gabapentin 100 mg capsule 100 mg PO TID Qty: 90 RF: 3 Referrals Referrals: Dexter Dixon DO [Primary Care Provider] -
[2021-02-04] MEDS ORDERED: MoRPHine SULFATE 4 MG/ML 1 ML CARP\\VIAL IV STA (23:43)
[2021-02-05 00:12] LABS: Basophils # (auto) 0.03 K/uL (0-0.2); Basophils % (auto) 0.4 %; Eosinophils # (auto) 0.06 K/uL (0-0.5); Eosinophils % (auto) 0.7 %; Hemoglobin 14.4 g/dL (12.0-16.0); Immature Granulocytes # (auto) 0.02 K/uL (0.00-0.02); Immature Granulocytes % (auto) 0.2 %; Lymphocytes # (auto) 1.42 K/uL (1.2-3.4); Lymphocytes % (auto) 17.7 %; Mean Corpuscular Hemoglobin 31.5 pg (25-34); Mean Corpuscular Hgb Conc 33.5 g/dL (32-36); Mean Corpuscular Volume 94.1 fL (80-100); Mean Platelet Volume 10.1 fL (7.4-10.4); Monocytes # (auto) 0.71 K/uL (0.11-0.59); Monocytes % (auto) 8.9 %; Neutrophils # (auto) 5.77 K/uL (1.4-6.5); Neutrophils % (auto) 72.1 %; Platelet Count 259 K/uL (130-400); RDW Coefficient of Variation 12.5 % (11.5-14.5); RDW Standard Deviation 42.8 fL (36.4-46.3); Red Blood Count 4.57 M/uL (4.2-5.4); White Blood Count 8.01 K/uL (4.8-10.8)
[2021-02-05 00:30] LABS: BUN Creatinine Ratio 32.4 (10-20); Blood Urea Nitrogen 20 mg/dl (7-18); Calcium 9.4 mg/dl (8.5-10.1); Carbon Dioxide 28 mmol/L (21-32); Chloride 108 mmol/L (98-107); Est GFR (African American) 106.1 ml/min; Est GFR (Non-African American) 91.5 ml/min; Glucose 94 mg/dl (70-99); Potassium 3.9 mmol/L (3.5-5.1); Sodium 139 mmol/L (136-145)
--- NOTE | 2021-02-05 01:10 | History & Physical Report ---
Date of Service February 05, 2021 Assessment & Plan (1) Acute pain of right hip: Plan: Possible muscular strain Situational hypertension History meningioma status post surgery/radiotherapy COPD as per records, no acute lung issues currently History nonepileptic seizures Chronic intention tremors Pelvic mass, recent outpatient imaging completed. Patient follows with [facility] Gynecology. past tobacco abuse OBS [facility] Analgesia Follow official CT results May need Orthopedics consult if with persistent pain PT OT eval DVT prophylaxis. Lovenox subcu Full code History of Present Illness Chief Complaint: Right hip pain Primary Care Provider: Dexter Dixon, History obtained from patient and records. Medical history significant for COPD, anxiety, GERD, meningioma status post surgery/radiotherapy, history nonepileptic seizures, chronic intention tremors, past tobacco abuse. Recent confinement February 2019 for breakthrough seizures. Patient transferred to [facility] for further evaluation. Patient started by specialist on gabapentin few months ago for headache attributed to neuropathic pain post craniotomy for meningioma. Patient does not think medication is working. Trying to taper down dose. Patient currently on gabapentin twice daily. Patient noted achy right hip pain worse with motion at the parking lot of a local grocery today. No recollection of recent trauma/exertion/lifting. Patient denies chest pain, S OB. Usual headache symptoms. Patient thinks her gabapentin Rx might have something to do with right hip pain. Intractable discomfort at the ER. 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 Allergies Allergy/AdvReac Type Severity Reaction Status Date / Time Penicillins Allergy Severe ANAPHYLAXIS Verified 02/05/21 00:52 topiramate [From Topamax] Allergy Unknown Unknown Verified 02/05/21 00:52 aspirin AdvReac Severe SWELLING Verified 02/05/21 00:52 OF ESOPHAGUS propoxyphene AdvReac Severe SWELLING Verified 02/05/21 00:52 TO ESOPHAGUS codeine AdvReac Intermediate VOMITTING Verified 02/05/21 00:52 hydromorphone [From Dilaudid] AdvReac Difficulty Verified 02/05/21 00:52 Breathing Home Medications Medication Instructions Recorded Confirmed Type acetaminophen 500 mg tablet 1,000 mg PO Q8H tab 01/01/20 02/05/21 History (Tylenol Extra Strength) diazepam 2 mg tablet 1 mg PO TID tab 09/29/20 02/05/21 History cholecalciferol (vitamin D3) 125 125 mcg PO DAILY 02/05/21 02/05/21 History mcg (5,000 unit) tablet (Vitamin D3) conjugated estrogens 0.625 mg/gram 1 applic VAGINAL MOTH 02/05/21 02/05/21 Histo ry vaginal cream (Premarin) diclofenac sodium 1 % topical gel 2 g TOPICAL BID PRN 02/05/21 02/05/21 History docusate sodium 100 mg capsule 200 mg PO DAILY 02/05/21 02/05/21 History gabapentin 100 mg capsule 100 mg PO BID 02/05/21 02/05/21 History mometasone 50 mcg/actuation nasal 2 spray INTRANASAL DAILY PRN 02/05/21 02/05/21 History spray ondansetron 4 mg disintegrating 4 mg PO Q12 PRN 02/05/21 02/05/21 History tablet sennosides 8.6 mg-docusate sodium 1 tab-cap PO HS 02/05/21 02/05/21 History 50 mg tablet (Senna-S) solifenacin 5 mg tablet 5 mg PO DAILY 02/05/21 02/05/21 History Past Med/Surg History Medical History Atypical meningioma of brain Esophageal stricture GERD (gastroesophageal reflux disease) Headache Seizure disorder Nonepileptic Surgical History H/O nasal septoplasty History of appendectomy History of hip replacement Family History Grandmother Uterine cancer Mother , age 31 from suicide No problems noted. Father , in his 20s from a motor vehicle accident No problems noted. 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 Other Information That Helps Us Care for You: No other: Former employee at [employer] Feels Safe at Home: Yes Safety Concerns: Feels Safe At This Time Assistive Devices: Glasses and Walker Review of Systems Review of Systems: As per HPI, all 10 systems reviewed, all other ROS negative Physical Exam Physical Exam: GENERAL: Slightly uncomfortable, anxious, no respiratory distress SKIN: Normal color, warm HEENT: Toppers palpebral conjunctivae, no ptosis, dry buccal mucosa NECK : Supple, no tenderness CHEST : CTA, no anterior chest wall tenderness HEART : RRR, no obvious murmurs ABDOMEN: Some distention, nontender EXTREMITIES : Right hip tenderness, minimal LE swelling NEUROLOGIC : Coherent, no facial asymmetry, tremulous, gait and stance not assessed Results & Data Results & Data ([facility]) Vital Signs (Past 12 Hours) Vital Signs Temp Pulse Resp BP BP Pulse Ox 02/04/21 21:09 18 155/75 H 98 02/04/21 17:39 36.6 C 74 20 146/81 H 95 Laboratory Results Laboratory Results WBC 8.01 K/uL (4.8-10.8) 02/04/21 23:55 RBC 4.57 M/uL (4.2-5.4) 02/04/21 23:55 Hgb 14.4 g/dL (12.0-16.0) 02/04/21 23:55 Hct 43.0 % (37-47) 02/04/21 23:55 MCV 94.1 fL (80-100) 02/04/21 23:55 MCH 31.5 pg (25-34) 02/04/21 23:55 MCHC 33.5 g/dL (32-36) 02/04/21 23:55 RDW Std Deviation 42.8 fL (36.4-46.3) 02/04/21 23:55 RDW Coeff of Sissy 12.5 % (11.5-14.5) 02/04/21 23:55 Plt Count 259 K/uL (130-400) 02/04/21 23:55 MPV 10.1 fL (7.4-10.4) 02/04/21 23:55 Immature Gran % (Auto) 0.2 % 02/04/21 23:55 Neut % (Auto) 72.1 % 02/04/21 23:55 Lymph % (Auto) 17.7 % 02/04/21 23:55 Daniels % (Auto) 8.9 % 02/04/21 23:55 Eos % (Auto) 0.7 % 02/04/21 23:55 Baso % (Auto) 0.4 % 02/04/21 23:55 Neut # (Auto) 5.77 K/uL (1.4-6.5) 02/04/21 23:55 Lymph # (Auto) 1.42 K/uL (1.2-3.4) 02/04/21 23:55 Daniels # (Auto) 0.71 K/uL (0.11-0.59) H 02/04/21 23:55 Eos # (Auto) 0.06 K/uL (0-0.5) 02/04/21 23:55 Baso # (Auto) 0.03 K/uL (0-0.2) 02/04/21 23:55 Immature Gran # (Auto) 0.02 K/uL (0.00-0.02) 02/04/21 23:55 Sodium 139 mmol/L (136-145) 02/04/21 23:55 Potassium 3.9 mmol/L (3.5-5.1) 02/04/21 23:55 Chloride 108 mmol/L (98-107) H 02/04/21 23:55 Carbon Dioxide 28 mmol/L (21-32) 02/04/21 23:55 Anion Gap 3.0 (3-11) 02/04/21 23:55 BUN 20 mg/dl (7-18) H 02/04/21 23:55 Creatinine 0.63 mg/dl (0.6-1.2) 02/04/21 23:55 Est Cr Clr Drug Dosing Not Reportable 02/04/21 23:55 Est GFR ( Amer) 106.1 ml/min 02/04/21 23:55 Est GFR (Non-Af Amer) 91.5 ml/min 02/04/21 23:55 BUN/Creatinine Ratio 32.4 (10-20) H 02/04/21 23:55 Glucose 94 mg/dl (70-99) 02/04/21 23:55 Calcium 9.4 mg/dl (8.5-10.1) 02/04/21 23:55 SARS-CoV-2, RNA, NAAT NEGATIVE (NEGATIVE) 02/05/21 00:08 Impressions Hip/Pelvis X-Ray 02/04/21 17:44 SINGLE VIEW PELVIS; 2 VIEWS RIGHT HIP CLINICAL HISTORY: Atraumatic right hip pain. FINDINGS: An AP view of the pelvis with AP and frog-leg views of the right hip are compared to study dated 09/25/2017 and correlated with pelvic CT dated 07/26/2018. The skeletal structures are osteopenic. There is no radiographic evidence of acute fracture involving the hips or bony pelvis. A bipolar left hip arthroplasty is in near-anatomic alignment. Minimal degenerative joint space narrowing is noted in the right hip. There is mild degenerative sclerosis in the sacroiliac joints. The overlying soft tissues are within normal limits. There is no evidence of bowel obstruction. IMPRESSION: No acute bony abnormality is identified. Electronically signed by: Jigar Cota M.D. 02/04/2021 7:[address] abdomen pelvis initial read: Bonypelvis. No acute fracture or dislocation. Left hip prosthesis. Pelvic/adnexal mass lesion with solid and cystic components, measures at least 6.[address] right hip initial read: No fracture or dislocation. Trace right hip fluid. Pelvic/adnexal mass lesion partiallyvisualized
[2021-02-05] MEDS ORDERED: NSS + 20MEQ KCL 20 MEQ/1,000 ML BAG IV ONE (01:16)
[2021-02-05] MEDS ORDERED: PROMETHAZINE HCL 12.5 MG in SODIUM CHLORIDE 0.9% 50 ML IV STA ×2 (01:22→01:31)
[2021-02-05] MEDS ORDERED: PROMETHAZINE 12.5 MG/50.5 ML BAG IV STA (01:31)
[2021-02-05] MEDS ORDERED: ACETAMINOPHEN 325 MG TAB PO PRN (02:33)
[2021-02-05] MEDS ORDERED: MoRPHine SULFATE 2 MG/ML CARP IV PRN (02:33)
[2021-02-05] MEDS ORDERED: DICLOFENAC SOD 1% GEL 100 GM TUBE EXT PRN ×2 (02:33→10:14)
[2021-02-05] MEDS ORDERED: FLUTICASONE PROPIONATE NA SPR 16 GM BTL PRN (02:41)
[2021-02-05 03:16] LABS: Appearance Urine Clear (Clear); Bacteria Urine Automated 1+ (Negative); Bilirubin Urine Negative (Negative); Blood Urine Negative (Negative); Color Urine Yellow; Glucose Urine UA Negative (Negative); Ketones Urine 1+ (Negative); Leukocyte Esterase Urine 1+ (Negative); Nitrite Urine Negative (Negative); Protein Urine Negative (Negative); RBC Urine Automated 0-4 /hpf (0-4); Specific Gravity Urine 1.018 (1.000-1.030); Urobilinogen Urine Negative (Negative)
[2021-02-05] MEDS: oxyCODONE HCL IR 5 MG TAB (IMMEDIATE RELEASE) PO PRN ×2 (07:09→17:27)
--- NOTE | 2021-02-05 08:00 | CT Scan Report ---
CT hip RT wo con CLINICAL HISTORY: spontaneous right hip pain while walking TECHNIQUE: Multidetector row helical CT of the right knee was performed without intravenous contrast. Coronal and sagittal reformations were obtained. Automated dose lowering techniques and/or adjustmen t according to patient size were utilized for this examination. Comparison: None available at the time of this dictation. FINDINGS: The osseous structures are without fracture or dislocation. No joint effusion is seen. The joint spa jacklyn are maintained. The soft tissues are unremarkable. IMPRESSION: No evidence of acute fracture or dislocation. ACT 112: Negative or not required by law. Electronically signed by: Deepak Woodard M.D. 02/05/2021 7:59 AM
--- NOTE | 2021-02-05 08:05 | CT Scan Report ---
CT pelvis wo con CLINICAL HISTORY: right hip and groin pain TECHNIQUE: Helical axial images of the pelvis were obtained and displayed at 5 and 1 mm intervals. Au tomated dose lowering techniques and/or adjustment according to patient size were utilized for this e xam. This exam was performed with intravenous contrast. COMPARISON: None available at the time of this dictation. FINDINGS: Bladder: Unremarkable. Reproductive organs: Right cystic lesions are seen measuring up to 2 cm in diameter. Bowel: Unremarkable. Lymph nodes Mesenteric: Unremarkable. Pelvic: Unremarkable. Peritoneum: Normal Vessels: Atherosclerotic calcifications are seen. Abdominal wall: Unremarkable. Bones: Total left hip arthroplasty is seen. IMPRESSION: 1. No acute abnormalities and in particular no evidence of acute fracture. 2. Multiple right ovarian cysts, favored to be benign. ACT 112: Negative or not required by law. Electronically signed by: Deepak Woodard M.D. 02/05/2021 8:03 AM
[2021-02-05] MEDS: diazePAM 2 MG TABLET PO SCH ×3 (08:31→20:29)
[2021-02-05] MEDS: GABAPENTIN 100 MG CAP PO SCH ×2 (08:32→20:29)
[2021-02-05] MEDS: ENOXAPARIN INJ 30 MG/0.3 ML SYR SQ SCH ×2 (08:32→11:14)
[2021-02-05] MEDS: DOCUSATE SODIUM 100 MG CAP PO SCH (08:32)
[2021-02-05] MEDS: ACETAMINOPHEN 500 MG TAB PO PRN (10:43)
--- NOTE | 2021-02-05 11:43 | Orthopedic Consultation ---
Date of Service February 05, 2021 Assessment & Plan (1) Acute pain of right hip: She was seen and examined by Dr. Ornelas. We will get an MRI of right hip/pelvis to evaluate for a hip fracture or pelvis insufficiency fracture. History of Present Illness Reason for Consultation: . Requesting Physician: . Attending Physician: Nancy Brasher MD . 70 year old patient c/o right groin/hip pain. She said it began with sudden onset yesterday while walking in a parking lot. She says it is excruciating with movement and weight bearing. No pain at rest. No back pain. Denies pain in the right hip prior to yesterday. She has had some muscle weakness and said she was carrying a 12lb bag of salt 2 days. She has a previous h/o left sarthak for a hip fracture, done by Dr. Watters with [facility]. Allergies Allergy/AdvReac Type Severity Reaction Status Date / Time Penicillins Allergy Severe ANAPHYLAXIS Verified 02/05/21 00:52 topiramate [From Topamax] Allergy Unknown Unknown Verified 02/05/21 00:52 aspirin AdvReac Severe SWELLING Verified 02/05/21 00:52 OF ESOPHAGUS propoxyphene AdvReac Severe SWELLING Verified 02/05/21 00:52 TO ESOPHAGUS codeine AdvReac Intermediate VOMITTING Verified 02/05/21 00:52 hydromorphone [From Dilaudid] AdvReac Difficulty Verified 02/05/21 00:52 Breathing Home Medications Medication Instructions Recorded Confirmed Type acetaminophen 500 mg tablet 1,000 mg PO Q8H tab 01/01/20 02/05/21 History (Tylenol Extra Strength) diazepam 2 mg tablet 1 mg PO TID tab 09/29/20 02/05/21 History cholecalciferol (vitamin D3) 125 125 mcg PO DAILY 02/05/21 02/05/21 History mcg (5,000 unit) tablet (Vitamin D3) conjugated estrogens 0.625 mg/gram 1 applic VAGINAL MOTH 02/05/21 02/05/21 H istory vaginal cream (Premarin) diclofenac sodium 1 % topical gel 2 g TOPICAL BID PRN 02/05/21 02/05/21 History docusate sodium 100 mg capsule 200 mg PO DAILY 02/05/21 02/05/21 History gabapentin 100 mg capsule 100 mg PO BID 02/05/21 02/05/21 History mometasone 50 mcg/actuation nasal 2 spray INTRANASAL DAILY PRN 02/05/21 02/05/21 History spray ondansetron 4 mg disintegrating 4 mg PO Q12 PRN 02/05/21 02/05/21 History tablet sennosides 8.6 mg-docusate sodium 1 tab-cap PO HS 02/05/21 02/05/21 History 50 mg tablet (Senna-S) solifenacin 5 mg tablet 5 mg PO DAILY 02/05/21 02/05/21 History Past Med/Surg History Medical History Atypical meningioma of brain Esophageal stricture GERD (gastroesophageal reflux disease) Headache Seizure disorder Nonepileptic Surgical History H/O nasal septoplasty History of appendectomy History of hip replacement Family History Grandmother Uterine cancer Mother , age 31 from suicide No problems noted. Father , in his 20s from a motor vehicle accident No problems noted. 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 Physical Exam .She is supine in bed. NAD. Alert and oriented. Right leg: She doesn't do a straight leg raise due to pain. She was able to slowly flex the hip some but has groin pain. No tenderness to palpation. No knee effusion. Some groin pain with internal/external rotation of the leg. She can dorsiflex and plantar flex appropriately. Results & Data Results & Data Laboratory Results . Diagnostic Findings . xrays and ct scan reviewed and show no fracture. No significant hip arthritis. No other bone abnormalities. She has previous left sarthak. PG Care Time/CCT Total # of Minutes Spent Total Time Spent with Patient: Total time spent is greater than 50% in coordination of care (as documented) at patient's floor/unit and/or counseling patient: Coding Level of Care Code 46997 Inpt Consult Level 4 Diagnoses Acute pain of right hip M25.551
--- NOTE | 2021-02-05 18:06 | Magnetic Resonance Report ---
MR hip RT wo con CLINICAL HISTORY: 70 years-old Female with right hip pain. Acute right hip pain with weakness COMPARISON: CT right hip and CT pelvis studies 02/04/2021 TECHNIQUE: Multiplanar, multi sequence MRI of the right hip was performed without intravenous contras t. FINDINGS: Susceptibility artifact from left hip total joint arthroplasty limits the study. The study is also mo tion degraded. LABRUM: There is degeneration of the labrum without acute labral tear dental 5. No evidence of chond rolabral separation or paralabral cyst. BONE MARROW: There is moderate bone marrow edema of the subcapital femoral head neck junction extend ing into the femoral neck and intertrochanteric distribution. Linear decreased T1 marrow signal is mo st pronounced involving the anteromedial cortex of the mid femoral neck on image 20 series 8. No evid ence of avascular necrosis. BURSAE: There is no evidence for iliopsoas or trochanteric bursitis. HIP JOINT: There is mild osteoarthritis. There is no evidence for femoral-acetabular or ischiofemora l impingement syndrome. Small hip joint effusion. No intraarticular loose body is evident. MUSCLES: Muscular signal and morphology is within normal limits. SCIATIC NERVE: The morphology and signal characteristics of the sciatic nerve appear normal. IMPRESSION: 1. Limited study as above. 2. There is moderate right proximal femoral marrow edema which is centered within the femoral neck ex tending into the intertrochanteric distribution. Findings are suggestive of a subtle acute fracture o f the subcapital femoral neck. Acute stress response versus transient osteoporosis considered less li killian. 3. Small right hip joint effusion. 4. Left hip total joint arthroplasty. ACT 112: Negative or not required by law. The above report was generated using voice recognition software. It may contain grammatical, syntax o r spelling errors. Electronically signed by: Mart Diez M.D. 02/05/2021 6:04 PM
--- NOTE | 2021-02-05 18:58 | Hospitalist Progress Note ---
Date of Service February 05, 2021 Assessment & Plan (1) Subcapital fracture of neck of femur: Plan: 70-year-old female with history of COPD, anxiety, GERD, meningioma status post surgery/radiotherapy, nonepileptic seizures, chronic intention tremors, past tobacco use presented to ED 02/04 with complaint of acute onset of right groin pain. Patient reports lifting heavy objects [2 gallon/another event of 12 pounds/another event of almost 2 gallon] the prior day of onset of right groin pain. Patient is being managed for the following: #. Right hip pain #. Subcapital femoral neck fracture Admitting CT scan of pelvis and hip and x-ray pelvis/hip negative for any fracture 02/05 MRI hip: moderate right proximal femoral marrow edema which is centered within the femoral neck extending into the intertrochanteric distribution. Findings are suggestive of a subtle acute fracture of the subcapital femoral neck. Acute stress response versus transient osteoporosis considered less likely. Likely pathological fracture, osteoporosis status unknown, will send vitamin D level Orthopedics on board, pain management, await further recommendation from orthopedics Patient will need outpatient orthopedics follow-up upon discharge. #. Chronic medical conditions: History of meningioma/nonepileptic seizure/COPD Continue with home medication. DVT prophylaxis: Heparin every 12 hours Full code Admission and Anticipated Discharge Date Admission Date: February 05, 2021 Subjective Patient was lying in bed, room air, in distress, no new acute events overnight. Patient reports headache which is her baseline. Patient reporting right hip pain even with slight movement. Patient denies chest pain/palpitation/fever/other review of symptoms. Patient is eating okay. Physical Exam Physical Exam: GENERAL: Alert and oriented x3. Looks to be in distress due to pain on RA. HEENT: No pallor, no icterus. Pupils equal, round and reactive to light. Oral mucosa moist. NECK: No JVD, no neck masses. HEART: S1 and S2 heard. Regular rate and rhythm. No murmur, no gallop. RESPIRATORY SYSTEM: Normal AP diameter. No accessory muscle use. No wheezing, no crackles. ABDOMEN: Soft, bowel sounds present, nontender, no distention. CENTRAL NERVOUS SYSTEM: Alert and oriented x3. No facial droop. Speech is clear. Obeys simple commands. Moves extremities. EXTREMITIES: No edema, no erythema seen. Excruciating right hip pain even with slight manipulation of right lower extremity. Distal neurovascular status normal. Tenderness over right anterior iliac crest. No bruising noted. Results & Data Results & Data ([facility]) Vital Signs (Past 12 Hours) Vital Signs Temp Pulse Resp BP Pulse Ox 02/05/21 15:17 36.8 C 63 17 134/73 95 02/05/21 07:04 36.9 C 61 17 119/67 91
[2021-02-05] MEDS: DOCUSATE SODIUM/SENNA 50/8.6MG TAB PO SCH (20:29)
[2021-02-05] MEDS: HEPARIN SOD 5,000 UNIT/0.5 ML VIAL SQ SCH (20:30)
[2021-02-06] MEDS: ACETAMINOPHEN 500 MG TAB PO PRN (01:09)
[2021-02-06] MEDS ORDERED: PROMETHAZINE HCL 6.25 MG in SODIUM CHLORIDE 0.9% 50 ML IV PRN (01:17)
[2021-02-06] MEDS: HEPARIN SOD 5,000 UNIT/0.5 ML VIAL SQ SCH (08:36)
[2021-02-06] MEDS: oxyCODONE HCL IR 5 MG TAB (IMMEDIATE RELEASE) PO PRN ×2 (08:41→19:54)
[2021-02-06] MEDS: DOCUSATE SODIUM 100 MG CAP PO SCH (08:41)
[2021-02-06] MEDS: diazePAM 2 MG TABLET PO SCH ×3 (08:41→19:55)
[2021-02-06] MEDS: GABAPENTIN 100 MG CAP PO SCH ×2 (08:42→19:56)
[2021-02-06] MEDS ORDERED: ceFAZolin 2000MG 2,000 MG/15 ML SYR IV ONE (08:47)
--- NOTE | 2021-02-06 09:59 | Progress Notes ---
DATE OF SERVICE: 02/06/2021. SUBJECTIVE: A 71-year-old female admitted with acute onset of right hip pain. It started just 2 day s ago while she was walking in a parking lot and carrying some salt. She was admitted to the ER. [place] álvarez had a negative CT scan and plain x-rays. She continues to have persistent groin pain. We ordered an MRI, which showed a femoral neck/intertroch fracture. No interval change in symptoms. Isolated g roin pain. Only hurts her with weightbearing and attempted movement. No preexisting hip pain. OBJECTIVE: VITAL SIGNS: Temperature is 36.5. Vital signs are stable. GENERAL: Shows a pleasant, elderly female. She is lying in bed, looks reasonably comfortable this m orning. EXTREMITIES: Examination of the right hip and leg reveals no visible deformity. There is no swellin g. She cannot do a straight leg raise, but she can slide her hip pain up and down. She does have a little pain with this. No knee effusion. She is neurologically intact. MRI was reviewed. It does show significant edema in the femoral neck area with a crack which seems t o be extending into the intertrochanteric region. A small hip joint effusion. This is consistent wi th a femoral neck/intertroch stress fracture. I do not think this is a transient osteoporosis. ASSESSMENT: This is a 71-year-old female with acute onset of right hip pain consistent with a right femoral neck/intertroch insufficiency fracture. No underlying arthritis. PLAN: We talked about treatment options including nonoperative treatment, which would be strict nonw eightbearing for 6-8 weeks versus IM nailing. She has elected to proceed with surgical intervention, so that she can get up and ambulate. This is certainly appropriate. We are going to get an EKG, chest x-ray and a type and screen. We will get medical confirmation that she is acceptable surgical candidate. I do not see any reasons why not. We are going to proceed wi th IM nailing likely tomorrow morning. We will keep her n.p.o. Continue DVT prophylaxis, TEDs, SCDs , and aspirin. Risks and benefits of this procedure were explained to the patient and include but no t limited to DVT, PE, , infection, progression of arthritis, nonunion, malunion, and need for fu rther surgery. The patient understands and desires to proceed. Informed consent was obtained. Job ID: [id number]
--- NOTE | 2021-02-06 16:09 | XRay Report ---
XR chest 1V portable CLINICAL HISTORY: Right hip pain TECHNIQUE: Single frontal radiograph of the chest was obtained. Comparison: Comparison is made to chest one view 03/06/2019 FINDINGS: No lines and tubes are seen. The cardiomediastinal silhouette is normal. The lungs are clear. No evid ence of pleural effusion or pneumothorax. IMPRESSION: No acute chest disease. ACT 112: Negative or not required by law. Electronically signed by: Deepak Woodard M.D. 02/06/2021 4:08 PM
[2021-02-06] MEDS ORDERED: SOD PHOSPHATE/SOD BIPHOSPHATE ENEMA 132 ML BTL PR STA (17:32)
--- NOTE | 2021-02-06 17:52 | Anesthesiology Consultation ---
Date of Service February 06, 2021 Assessment & Plan Chart Review Chart Review: Acceptable Risk for Surgery and Patient NOT seen in Pre Admission Testing Consults Requested none History Surgery Operation Date: 02/07/21 07:30 Proposed Procedures p Intramedullary German Femur, Samy - Lv Ornelas MD Height/Weight Height: 5 ft 9 in Weight: 65.2 kg Allergies Allergy/AdvReac Type Severity Reaction Status Date / Time Penicillins Allergy Severe ANAPHYLAXIS Verified 02/05/21 00:52 topiramate [From Topamax] Allergy Unknown Unknown Verified 02/05/21 00:52 aspirin AdvReac Severe SWELLING Verified 02/05/21 00:52 OF ESOPHAGUS propoxyphene AdvReac Severe SWELLING Verified 02/05/21 00:52 TO ESOPHAGUS codeine AdvReac Intermediate VOMITTING Verified 02/05/21 00:52 hydromorphone [From Dilaudid] AdvReac Difficulty Verified 02/05/21 00:52 Breathing Medications Home Medications Medication Instructions Recorded Confirmed Last Taken acetaminophen 500 mg tablet 1,000 mg PO Q8H tab 01/01/20 02/05/21 Unknown (Tylenol Extra Strength) diazepam 2 mg tablet 1 mg PO TID tab 09/29/20 02/05/21 Unknown cholecalciferol (vitamin D3) 125 125 mcg PO DAILY 02/05/21 02/05/21 Unknown mcg (5,000 unit) tablet (Vitamin D3) conjugated estrogens 0.625 mg/gram 1 applic VAGINAL MOTH 02/05/21 02/05/21 Un known vaginal cream (Premarin) diclofenac sodium 1 % topical gel 2 g TOPICAL BID PRN 02/05/21 02/05/21 Unknown docusate sodium 100 mg capsule 200 mg PO DAILY 02/05/21 02/05/21 Unknown gabapentin 100 mg capsule 100 mg PO BID 02/05/21 02/05/21 Unknown mometasone 50 mcg/actuation nasal 2 spray INTRANASAL DAILY PRN 02/05/21 02/05/21 Unknown spray ondansetron 4 mg disintegrating 4 mg PO Q12 PRN 02/05/21 02/05/21 Unknown tablet sennosides 8.6 mg-docusate sodium 1 tab-cap PO HS 02/05/21 02/05/21 Unknown 50 mg tablet (Senna-S) solifenacin 5 mg tablet 5 mg PO DAILY 02/05/21 02/05/21 Unknown Active Medications Generic Name Dose Route Start Last Admin Trade Name Freq PRN Reason Stop Dose Admin Acetaminophen 1,000 mg 02/05/21 10:14 02/06/21 01:09 Acetaminophen 500 Mg Tab PO 03/07/21 02:32 1,000 mg TID PRN Administration pain/fever, headache Diazepam 1 mg 02/05/21 09:00 02/06/21 15:14 Diazepam 2 Mg Tablet PO 03/07/21 08:59 Not Given TID ARNOLDO Docusate Sodium 200 mg 02/05/21 09:00 02/06/21 08:41 Docusate Sodium 100 Mg Cap PO 03/07/21 08:59 200 mg DAILY ARNOLDO Administration Gabapentin 100 mg 02/05/21 09:00 02/06/21 08:42 Gabapentin 100 Mg Cap PO 03/07/21 08:59 100 mg BID ARNOLDO Administration Promethazine HCl 6.25 mg/ 50.25 mls @ 201 mls/hr 02/06/21 01:17 02/06/21 02:38 Sodium Chloride IV 03/08/21 01:16 Infused Q6H PRN Infusion Nausea And Vomiting Oxycodone HCl 5 - 10 mg 02/05/21 02:33 02/06/21 08:41 Oxycodone Hcl Ir 5 Mg Tab (Immediate Release) PO 02/19/21 02:32 10 mg QID PRN Administration Pain Senna/Docusate Sodium 1 tab 02/05/21 21:00 02/05/21 20:29 Docusate Sodium/Senna 50/8.6mg Tab PO 03/07/21 20:59 1 tab HS ARNOLDO Administration NPO Date Last Intake of Fluids: 02/06/21 Time Last Intake of Fluids: 23:59 Date Last Intake of Solids: 02/06/21 Time Last Intake of Solids: 23:59 Past Medical History Medical History Atypical meningioma of brain Esophageal stricture GERD (gastroesophageal reflux disease) Headache Seizure disorder Nonepileptic Past Family History Family History Grandmother Uterine cancer Mother , age 31 from suicide No problems noted. Father , in his 20s from a motor vehicle accident No problems noted. Past Surgical History Surgical History H/O nasal septoplasty History of appendectomy History of hip replacement Social History Smoking Status: Former smoker tobacco type: cigarettes Do You Dip or Chew Tobacco: No Hx Alcohol Use: No Hx Substance Use: No substance use type: does not use Last Used Substance: Just Prior to Arrival Physical Exam Vital Signs Last Vital Signs Temp 98.6 F 02/06/21 17:04 Pulse 67 02/06/21 17:04 Resp 18 02/06/21 17:04 BP 112/68 02/06/21 17:04 Pulse Ox 93 02/06/21 17:04 Testing Laboratory Results 02/04/21 23:55 02/04/21 23:55 Urine Color Yellow 02/05/21 03:05 Urine Appearance Clear (Clear) 02/05/21 03:05 Urine pH 6.0 (4.5-7.5) 02/05/21 03:05 Ur Specific [place] 1.018 (1.000-1.030) 02/05/21 03:05 Urine Protein Negative (Negative) 02/05/21 03:05 Urine Glucose (UA) Negative (Negative) 02/05/21 03:05 Urine Ketones 1+ (Negative) H 02/05/21 03:05 Urine Nitrite Negative (Negative) 02/05/21 03:05 Ur Leukocyte Esterase 1+ (Negative) H 02/05/21 03:05 Urine WBC (Auto) 5-10 /hpf (0-5) H 02/05/21 03:05 Urine RBC (Auto) 0-4 /hpf (0-4) 02/05/21 03:05 U Hyaline Cast (Auto) 1-5 /lpf (0-5) 02/05/21 03:05 U Epithel Cells (Auto) 10-20 /lpf (0-5) H 02/05/21 03:05 Urine Bacteria (Auto) 1+ (Negative) H 02/05/21 03:05 Blood Type O Negative 02/06/21 09:07 Antibody Screen NEGATIVE 02/06/21 09:07 02/05/21 03:05 Urine Culture - Preliminary Urine,Clean Catch Proteus species Electrocardiogram Date: 02/06/21 Findings: + NSR @ Chest X-Ray Date: 02/06/21 Findings: + NAD
--- NOTE | 2021-02-06 18:13 | Hospitalist Progress Note ---
Date of Service February 06, 2021 Assessment & Plan (1) Subcapital fracture of neck of femur: Plan: 70-year-old female with history of COPD, anxiety, GERD, meningioma status post surgery/radiotherapy, nonepileptic seizures, chronic intention tremors, past tobacco use presented to ED 02/04 with complaint of acute onset of right groin pain. Patient reports lifting heavy objects [2 gallon/another event of 12 pounds/another event of almost 2 gallon] the prior day of onset of right groin pain. Patient is being managed for the following: #. Right hip pain #. Subcapital femoral neck fracture Admitting CT scan of pelvis and hip and x-ray pelvis/hip negative for any fracture 02/05 MRI hip: moderate right proximal femoral marrow edema which is centered within the femoral neck extending into the intertrochanteric distribution. Findings are suggestive of a subtle acute fracture of the subcapital femoral neck. Acute stress response versus transient osteoporosis considered less likely. Likely pathological fracture, osteoporosis status unknown, vitamin D level WNL Orthopedics on board: N.p.o. midnight, for intramedullary nailing tomorrow. Continue pain management. Patient will need outpatient orthopedics follow-up upon discharge. #. Chronic medical conditions: History of meningioma/nonepileptic seizure/COPD Continue with home medication. DVT prophylaxis: Heparin every 12 hours Full code Plan of care: Hold anticoagulation, n.p.o. midnight, for intramedullary nailing tomorrow. Revised cardiac risk index: Elevate recs per surgery: 0 History of ischemic heart disease: 0 History of congestive heart failure: 0 History of cerebrovascular disease: 0 Preoperative treatment with insulin: 0 Preoperative creatinine greater than 2 mg/dL: 0 0 points: 3.9% 30-day risks of , RI or cardiac arrest. Class I risk. Patient is moderate risks of cardiac pulmonary complications perioperatively, no known medical contraindication to proceed with planned surgery. Admission and Anticipated Discharge Date Admission Date: February 06, 2021 Subjective Patient was lying in bed, room air, in distress, no new acute events overnight. Patient reports headache which is her baseline. Patient reporting ongoing right hip pain even with slight movement. Patient denies chest pain/palpitation/fever/other review of symptoms. Patient is eating okay. Patient reports not being able to move bowel and asking enema. Will order 1. Physical Exam Physical Exam: GENERAL: Alert and oriented x3. NAD. On RA. HEENT: No pallor, no icterus. Pupils equal, round and reactive to light. Oral mucosa moist. NECK: No JVD, no neck masses. HEART: S1 and S2 heard. Regular rate and rhythm. No murmur, no gallop. RESPIRATORY SYSTEM: Normal AP diameter. No accessory muscle use. No wheezing, no crackles. ABDOMEN: Soft, bowel sounds present, nontender, no distention. CENTRAL NERVOUS SYSTEM: Alert and oriented x3. No facial droop. Speech is clear. Obeys simple commands. Moves extremities. EXTREMITIES: No edema, no erythema seen. Excruciating right hip pain even with slight manipulation of right lower extremity. Distal neurovascular status normal. Results & Data Results & Data ([facility]) Vital Signs (Past 12 Hours) Vital Signs Temp Pulse Resp BP BP Pulse Ox 02/06/21 17:04 37.0 C 67 18 112/68 93 02/06/21 13:22 69 98/61 L 94 02/06/21 13:21 70 91/58 L 02/06/21 07:30 36.5 C 62 16 110/70 91
[2021-02-06] MEDS: DOCUSATE SODIUM/SENNA 50/8.6MG TAB PO SCH (19:56)
[2021-02-07] MEDS: oxyCODONE HCL IR 5 MG TAB (IMMEDIATE RELEASE) PO PRN ×3 (05:28→19:35)
[2021-02-07] MEDS ORDERED: BUPIVACAINE 0.5 % 5 MG/1 ML MPF 30ML VIAL ONE (06:51)
[2021-02-07] MEDS ORDERED: EPINEPHrine INJ 1 MG/ML AMP ONE (06:51)
[2021-02-07] MEDS ORDERED: MIDAZOLAM HCL 1 MG/ML 2ML VIAL ONE (07:04)
[2021-02-07] MEDS ORDERED: fentaNYL citrate 100 MCG/2 ML VIAL ONE (07:04)
[2021-02-07] MEDS ORDERED: ONDANSETRON INJ 2 MG/ML 2 ML VIAL IV PRN (07:20)
[2021-02-07] MEDS ORDERED: ATROPINE SULFATE 0.1 MG/ML 10ML SYR IV PRN (07:20)
[2021-02-07] MEDS ORDERED: PROMETHAZINE HCL 6.25 MG in SODIUM CHLORIDE 0.9% 50 ML IV PRN (07:20)
[2021-02-07] MEDS ORDERED: ePHEDrine sulfate 50 MG/ML AMP IV PRN (07:20)
--- NOTE | 2021-02-07 07:25 | History & Physical Bridge Note ---
Date of Service February 07, 2021 History & Physical Bridge Note I have examined the patient, reviewed the History & Physical and in the interval since the performance of the History & Physical I have noted the following changes of clinical significance: no changes noted
[2021-02-07] MEDS ORDERED: VANCOMYCIN HCL 1 GM/270 ML BAG IV ONE (07:27)
[2021-02-07] MEDS ORDERED: PHENYLEPHRINE 100MCG/ML 5ML SYR ONE (08:02)
[2021-02-07] MEDS ORDERED: PROPOFOL IV EMULSION 10 MG/ML 20 ML VIAL IV ONE (08:02)
[2021-02-07] MEDS ORDERED: ePHEDrine sulfate 50 MG/ML SYR ONE (08:02)
[2021-02-07] MEDS ORDERED: ONDANSETRON INJ 2 MG/ML 2 ML VIAL ONE (08:02)
[2021-02-07] MEDS ORDERED: DEXAMETHASONE SOD INJ 4 MG/ML VIAL ONE (08:02)
[2021-02-07] MEDS ORDERED: LIDOCAINE 2% 2 ML VIAL/AMP(20MG/ML) INFIL ONE (08:02)
--- NOTE | 2021-02-07 08:45 | Fluoroscopy Report ---
FL femur RT 2V HISTORY: 71 years-old Female RIGHT TROCH NAIL acute fracture of the right hip COMPARISON: MRI right hip 02/05/2021 TECHNIQUE: 4 spot fluoroscopic images of the right hip were obtained utilizing 71.1 seconds fluorosco py time FINDINGS: Status post placement of an intratrochanteric nail with medullary antoinette. This fixates the radiographica lly occult femoral neck fracture. Satisfactory alignment. Expected postoperative soft tissue swelling with deep tissue air. Expected opaque foreign bodies. IMPRESSION: Fluoroscopic assistance as above. ACT 112: Negative or not required by law. The above report was generated using voice recognition software. It may contain grammatical, syntax o r spelling errors. Electronically signed by: Mart Diez M.D. 02/07/2021 8:44 AM
--- NOTE | 2021-02-07 08:56 | Operative Report ---
Post Operative Report Pre & Post Diagnosis Operation Date: 02/07/21 07:30 Pre-Op Diagnosis: Right hipl femoral neck/intertrochantric fracture Post-Op Diagnosis: Right hip femoral neck/ intertrochantric fracture I identified the patient and participated in the time-out.: Yes Procedure Operation Date: 02/07/21 07:30 Actual Procedures p Right Femur Intramedullary German Hip, Long - Lv Ornelas MD Surgeon Lv Ornelas MD Pasteuriser Operator Kaz Lugo PA-C Estimated Blood Loss 50 Findings Consistent with Post-Op Diagnosis Fluids 20 cc Specimens None Anesthesia Type General Complications none Disposition Accompanied Patient To Recovery: No Indications Patient is a 71-year-old female with quite independent who developed acute onset right hip pain just 2 days ago. She was walking across the parking lot carrying some salt when she developed acute groin pain. She was unable to ambulate. She brought the emergency room and admitted. X-rays and CT scan were negative but an MRI showed obvious bone marrow edema and ASA insufficiency stress fracture of the femoral neck extending into the intertrochanteric region. Patient elected proceed with surgical treatment. Description of Procedure Operative implants consist of: 1 Synthes right at 380 mm x 11 mm long trochanteric nail. 2. 100 mm helical blade. 3. 52 mm distal interlocking screw. The patient was taken the operating, identified, placed on the operating table supine position but all contractors were properly padded. IV antibiotics tried by anesthesia team. A general anesthetic was implemented. The patient was then placed on the fracture table. The right leg was placed in boot traction the left leg was placed in a well leg resendiz. Applied some longitudinal traction to the femur and pointed the toe so the kneecap went to the ceiling. X-ray was brought in to make sure adequate x-rays were obtained. The right hip was then scrubbed with Hibiclens prepped with ChloraPrep, and draped in the usual sterile fashion. A curvilinear incision was made just proximal tip of the greater trochanter extending proximally. Sharp dissection was carried through subcutaneous is done of the gluteal fascia gluteal fascia incised longitudinally in line with skin incision. A guidewire was then placed just lateral to the tip of the trochanter and in line with the IM canal both the AP and lateral planes. This was advanced down the IM canal. This was verified fluoroscopically. Some small adjustments were made. I then overreamed this with a 17 mm reamer. The guidewire was removed and exchanged for a ball-tipped guidewire. This was placed down the IM canal. The nail length was measured and a 380 mm nail was selected. I then reamed over the guidewire beginning with a size 9 progressing up to 12-03/21. A 380 mm x 11 mm right long trochanteric nail was selected and placed over the guidewire and tapped into position. The lateral aiming arm was attached and advanced to the skin. A stab incision was made in the lateral aiming arm was advanced to the lateral aspect of the proximal femur. A guidewire was then placed in the central aspect of the femoral head neck in both the AP and lateral planes. This is verified fluoroscopically. This was measured and an 800 mm helical blade was selected. The cortical strep drill was used to breach the cortex and the triple reamer was set at 100 mm and the guidewire was overreamed. I then placed 100 mm helical blade and tapped it in position. This was then tightened approximately with the proximal setscrew. Of the lateral aiming arm was released and some final x-rays were obtained proximally. Attention drawn toward distal fixation. Using the perfect [place] technique I did place a interlocking screw in the distal hole. A stab incision was made. Using the fluoroscopic guidance and the perfect [place] technique I drilled a hole and then placed a 52 mm interlocking screw distally. We allowed for a little dynamization. Some final x-rays very were obtained. Attention drawn toward closing. All wounds were irrigated with copious amounts of normal saline. I did inject locally with 30 cc of half percent Marcaine with epinephrine. The gluteal fascia was then closed with #1 Vicryl suture in running fashion for subcutaneous tissues with were closed in 2 layers the deep layer #1 Vicryl suture and subcutaneous tissues with 2-0 Dexon suture in a buried interrupted fashion. Skin was closed skin abdifatah. Leg was then cleaned dried a sterile dressing was Xeroform, 4 x 4's, ABD pad, foam tape were applied. The patient was then taken off the fracture table and transported to the transport bed. She was brought out of general anesthesia and transferred to the recovery room in stable condition. Patient tolerated the procedure well and there were no complications. Kaz Lugo, my physician web production assistant, was present for the entire procedure. His assistance was required for proper patient positioning, prepping and draping, surgical exposure, retraction, performing the technical details of the operation, closure of the wound, and placement of sterile bandage. I attest to the content of the Intraoperative Record and any orders documented therein. Any exceptions are noted below.
[2021-02-07] MEDS: fentaNYL citrate 100 MCG/2 ML VIAL IV PRN ×4 (08:58→09:17)
[2021-02-07] MEDS ORDERED: MoRPHine SULFATE 4 MG/ML 1 ML CARP\\VIAL ONE (09:20)
[2021-02-07] MEDS: MoRPHine SULFATE 10 MG/ML CARP/VIAL IV PRN ×3 (09:34→09:50)
--- NOTE | 2021-02-07 09:49 | Anesthesiology Progress Note ---
Date of Service February 07, 2021 Anesthesia Post Procedure Vital Signs Vital Signs: Temp Pulse Pulse Resp BP BP Pulse Ox 02/07/21 09:40 72 12 117/59 L 97 02/07/21 09:30 76 15 113/67 97 02/07/21 09:20 79 15 134/86 95 02/07/21 09:10 78 12 137/56 L 94 02/07/21 09:00 81 18 145/76 H 98 02/07/21 08:51 97.5 F L 92 H 12 134/77 98 02/07/21 07:00 98.1 F 68 16 146/76 H 91 02/06/21 22:43 98.4 F 64 14 107/64 97 02/06/21 19:49 79 117/74 02/06/21 17:04 98.6 F 67 18 112/68 93 02/06/21 13:22 69 98/61 L 94 02/06/21 13:21 70 91/58 L Pain Intensity Right Groin: Pain Intensity: 6 Right Hip: Pain Intensity: 6 Transfer of Care Handoff Completed per policy Notes Mental Status: alert / awake / arousable and participated in evaluation Patient Amnestic to Procedure: Yes Nausea / Vomiting: adequately controlled Pain: adequately controlled and improving with treatment Airway Patency, RR, SpO2: stable & adequate BP & HR: stable & adequate Hydration State: stable & adequate Anesthetic Complications: no major complications apparent and Pt Satisfied with anesthetic care
--- NOTE | 2021-02-07 09:54 | Electrocardiogram Report ---
Test Reason : Blood Pressure : / mmHG Vent. Rate : 061 BPM Atrial Rate : 061 BPM P-R Int : 166 ms QRS Dur : 084 ms QT Int : 446 ms P-R-T Axes : 065 068 070 degrees QTc Int : 448 ms Normal sinus rhythm Normal ECG When compared with ECG of 06-MAR-2019 18:43, No significant change was found Confirmed by Javi Sandoval ([id number]) on 02/07/2021 9:54:17 AM Referred By: REFERRED SELF Confirmed By:Javi Sandoval
[2021-02-07] MEDS: diazePAM 2 MG TABLET PO SCH ×3 (10:38→19:34)
[2021-02-07] MEDS: GABAPENTIN 100 MG CAP PO SCH ×4 (11:26→21:13)
[2021-02-07] MEDS: SODIUM CHLORIDE 0.9% 1000ML 1,000 ML IV SCH ×2 (11:27→23:27)
[2021-02-07] MEDS: DOCUSATE SODIUM 100 MG CAP PO SCH (12:52)
[2021-02-07] MEDS: CHOLECALCIFEROL 1,000 UNITS 25 MCG TAB PO SCH (13:35)
--- NOTE | 2021-02-07 16:56 | Hospitalist Progress Note ---
Date of Service February 07, 2021 Assessment & Plan (1) Subcapital fracture of neck of femur: Plan: 70-year-old female with history of COPD, anxiety, GERD, meningioma status post surgery/radiotherapy, nonepileptic seizures, chronic intention tremors, past tobacco use presented to ED 02/04 with complaint of acute onset of right groin pain. Patient reports lifting heavy objects [2 gallon/another event of 12 pounds/another event of almost 2 gallon] the prior day of onset of right groin pain. Patient is being managed for the following: #. Right hip pain #. Subcapital femoral neck fracture Admitting CT scan of pelvis and hip and x-ray pelvis/hip negative for any fracture 02/05 MRI hip: moderate right proximal femoral marrow edema which is centered within the femoral neck extending into the intertrochanteric distribution. Findings are suggestive of a subtle acute fracture of the subcapital femoral neck. Acute stress response versus transient osteoporosis considered less likely. Likely pathological fracture, osteoporosis status unknown, vitamin D level WNL Orthopedics on board: 02/07 status post right femoral intramedullary antoinette. Continue pain management. Patient will need outpatient orthopedics follow-up upon discharge. Incentive spirometry, PT/OT with orthopedics recommendation. #. Chronic medical conditions: History of meningioma/nonepileptic seizure/COPD Continue with home medication. DVT prophylaxis: Per orthopedics. On enoxaparin. Full code Admission and Anticipated Discharge Date Admission Date: February 06, 2021 Subjective Patient was lying in bed, room air, just came from orthopedic surgery, lethargi c, no new acute events overnight. Patient reports feeling weak. Patient reporting pain at right hip repair site under control. Patient denies chest pain/palpitation/fever/other review of symptoms. Patient has not moved bowel gas after the surgery. But it is too early to expect as well. Physical Exam Physical Exam: GENERAL: Oriented x3. NAD. Drowsy, on RA. HEENT: No pallor, no icterus. Pupils equal, round and reactive to light. Oral mucosa moist. NECK: No JVD, no neck masses. HEART: S1 and S2 heard. Regular rate and rhythm. No murmur, no gallop. RESPIRATORY SYSTEM: Normal AP diameter. No accessory muscle use. No wheezing, no crackles. ABDOMEN: Soft, bowel sounds present, nontender, no distention. CENTRAL NERVOUS SYSTEM: No facial droop. Speech is clear. Obeys simple commands. Moves extremities. EXTREMITIES: No edema, no erythema seen. BLE distal neurovascular status normal. Results & Data Results & Data ([facility]) Vital Signs (Past 12 Hours) Vital Signs Temp Pulse Pulse Resp BP BP Pulse Ox 02/07/21 16:08 76 16 104/66 94 02/07/21 13:07 71 14 109/71 92 02/07/21 12:11 36.4 C L 76 16 103/66 93 02/07/21 11:12 36.4 C L 81 16 97/61 L 92 02/07/21 10:45 36.6 C 76 16 105/65 94 02/07/21 10:15 36.5 C 76 12 116/73 94 02/07/21 10:00 37.1 C 74 12 117/56 L 96 02/07/21 09:50 75 14 115/61 96 02/07/21 09:40 72 12 117/59 L 97 02/07/21 09:30 76 15 113/67 97 02/07/21 09:20 79 15 134/86 95 02/07/21 09:10 78 12 137/56 L 94 02/07/21 09:00 81 18 145/76 H 98 02/07/21 08:51 36.4 C L 92 H 12 134/77 98 02/07/21 07:00 36.7 C 68 16 146/76 H 91
[2021-02-07] MEDS: DOCUSATE SODIUM/SENNA 50/8.6MG TAB PO SCH (19:35)
[2021-02-08] MEDS: ONDANSETRON 4 MG OD TAB PO PRN (04:52)
[2021-02-08] MEDS: oxyCODONE HCL IR 5 MG TAB (IMMEDIATE RELEASE) PO PRN ×3 (04:52→16:00)
[2021-02-08] MEDS: ACETAMINOPHEN 500 MG TAB PO PRN (06:04)
[2021-02-08 09:11] LABS: Basophils # (auto) 0.01 K/uL (0-0.2); Basophils % (auto) 0.2 %; Eosinophils # (auto) 0.03 K/uL (0-0.5); Eosinophils % (auto) 0.5 %; Hemoglobin 10.7 g/dL (12.0-16.0); Lymphocytes # (auto) 0.94 K/uL (1.2-3.4); Lymphocytes % (auto) 15.1 %; Mean Corpuscular Hemoglobin 31.3 pg (25-34); Mean Corpuscular Hgb Conc 32.4 g/dL (32-36); Mean Corpuscular Volume 96.5 fL (80-100); Mean Platelet Volume 10.7 fL (7.4-10.4); Monocytes # (auto) 0.94 K/uL (0.11-0.59); Monocytes % (auto) 15.1 %; Neutrophils # (auto) 4.32 K/uL (1.4-6.5); Neutrophils % (auto) 69.1 %; Platelet Count 211 K/uL (130-400); RDW Coefficient of Variation 12.4 % (11.5-14.5); RDW Standard Deviation 43.8 fL (36.4-46.3); Red Blood Count 3.42 M/uL (4.2-5.4); White Blood Count 6.24 K/uL (4.8-10.8)
[2021-02-08 09:38] LABS: BUN Creatinine Ratio 30.1 (10-20); Calcium 8.5 mg/dl (8.5-10.1); Creatinine Clr Calc Pharmacy 80.4 ml/min; Est GFR (African American) 103.2 ml/min; Est GFR (Non-African American) 89.1 ml/min; Potassium 4.1 mmol/L (3.5-5.1)
[2021-02-08] MEDS: CHOLECALCIFEROL 1,000 UNITS 25 MCG TAB PO SCH (09:38)
[2021-02-08] MEDS: GABAPENTIN 100 MG CAP PO SCH ×4 (09:38→20:08)
[2021-02-08] MEDS: DOCUSATE SODIUM 100 MG CAP PO SCH (09:38)
[2021-02-08] MEDS: PREMARIN VAG CRM 14 APPLN/30 GM TUBE PV SCH (09:39)
[2021-02-08] MEDS: ENOXAPARIN INJ 40 MG/0.4 ML SYR SQ SCH (09:41)
[2021-02-08] MEDS: diazePAM 2 MG TABLET PO SCH ×3 (09:43→20:08)
--- NOTE | 2021-02-08 13:50 | Progress Notes ---
DATE OF SERVICE: 02/08/2021. SUBJECTIVE: A 71-year-old female postoperative day 1 from IM nailing of right femoral neck/intertroc h insufficiency fracture. She is doing pretty well. Pain seems to be reasonable. She has a lot of questions today. No chest pain or shortness of breath. Not feeling dizzy or lightheaded. OBJECTIVE: VITAL SIGNS: Temperature 36.8. Vital signs are stable. GENERAL: Physical examination shows a pleasant, very talkative, elderly female. She is sitting up a t her bedside, about to start therapy. She had many questions. EXTREMITIES: Examination of the right hip reveals the dressing to be clean, dry and intact. Leg mirella gths were equal. She can dorsiflex and plantarflex her foot appropriately. She is neurologically in tact. LABORATORY DATA: Hemoglobin 10.7. Hematocrit 33.0. Electrolytes are stable. ASSESSMENT: A 71-year-old female postoperative day 1 from IM nailing of a right femoral neck/intertr ochanteric insufficiency fracture. She is doing reasonably well. Pain seems to be controlled. PLAN: 1. DVT prophylaxis including thigh-high TEDs, SCDs, and Lovenox 40 mg subcutaneously once a day for 2 weeks. 2. PT/OT. She can fully weightbear on this right leg. 3. Pain control, seems to be doing okay with current pain regimen. 4. Medical management as per the medicine service. 5. Disposition: She is orthopedically okay for discharge any time medically stable. I need to see her back two to three weeks out from surgery date. Any orthopedic questions can be directed to me at [phone]. Job ID: [id number]
--- NOTE | 2021-02-08 18:49 | Hospitalist Progress Note ---
Date of Service February 08, 2021 Assessment & Plan (1) Subcapital fracture of neck of femur: Plan: 70-year-old female with history of COPD, anxiety, GERD, meningioma status post surgery/radiotherapy, nonepileptic seizures, chronic intention tremors, past tobacco use presented to ED 02/04 with complaint of acute onset of right groin pain. Patient reports lifting heavy objects [2 gallon/another event of 12 pounds/another event of almost 2 gallon] the prior day of onset of right groin pain. Patient is being managed for the following: #. Right hip pain #. Subcapital femoral neck fracture Admitting CT scan of pelvis and hip and x-ray pelvis/hip negative for any fracture 02/05 MRI hip: moderate right proximal femoral marrow edema which is centered within the femoral neck extending into the intertrochanteric distribution. Findings are suggestive of a subtle acute fracture of the subcapital femoral neck. Acute stress response versus transient osteoporosis considered less likely. Likely pathological fracture, osteoporosis status unknown, vitamin D level WNL Orthopedics on board: 02/07 status post right femoral intramedullary antoinette. For DVT Px --> high TEDs and lovenox 40 mg SC for 2 weeks. Can fully weith bear on RT leg. F/u in 3 weeks from Sx date. Continue pain management. Patient will need outpatient orthopedics follow-up upon discharge. Incentive spirometry, PT/OT with orthopedics recommendation. #. Chronic medical conditions: History of meningioma/nonepileptic seizure/COPD Continue with home medication. DVT prophylaxis: Per orthopedics. On enoxaparin. Full code Disposition: Patient medically stable for discharge, orthopedics okay with discharge. We will send Covid test. She will need placement. valet manager working on placement. Admission and Anticipated Discharge Date Admission Date: February 06, 2021 Subjective Patient was lying in bed, room air, NAD, no new acute events overnight. Patient reports no gas and bowel movementcontinue to monitor. Patient reports feeling weak. Patient reporting pain at right hip repair site under control. Patient denies chest pain/palpitation/fever/other review of symptoms. Physical Exam Physical Exam: GENERAL: Oriented x3. NAD. Drowsy, on RA. HEENT: No pallor, no icterus. Pupils equal, round and reactive to light. Oral mucosa moist. NECK: No JVD, no neck masses. HEART: S1 and S2 heard. Regular rate and rhythm. No murmur, no gallop. RESPIRATORY SYSTEM: Normal AP diameter. No accessory muscle use. No wheezing, no crackles. ABDOMEN: Soft, bowel sounds present, nontender, no distention. CENTRAL NERVOUS SYSTEM: No facial droop. Speech is clear. Obeys simple commands. Moves extremities. EXTREMITIES: No edema, no erythema seen. BLE distal neurovascular status normal. Results & Data Results & Data ([facility]) Vital Signs (Past 12 Hours) Vital Signs Temp Pulse Resp BP BP Pulse Ox 02/08/21 16:40 37.4 C 83 16 111/64 90 02/08/21 12:00 88/49 L 148/73 H 02/08/21 07:57 36.8 C 63 16 105/66 97
[2021-02-08] MEDS: DOCUSATE SODIUM/SENNA 50/8.6MG TAB PO SCH (20:08)
[2021-02-08 22:36] LABS: Hematocrit (blood only) 33.1 % (37-47); Hemoglobin 10.8 g/dL (12.0-16.0)
[2021-02-09] MEDS: ACETAMINOPHEN 500 MG TAB PO PRN (05:44)
[2021-02-09 06:48] LABS: Hematocrit (blood only) 35.8 % (37-47); Hemoglobin 11.3 g/dL (12.0-16.0); Mean Corpuscular Hemoglobin 30.5 pg (25-34); Mean Corpuscular Hgb Conc 31.6 g/dL (32-36); Mean Corpuscular Volume 96.8 fL (80-100); Mean Platelet Volume 11.3 fL (7.4-10.4); Platelet Count 244 K/uL (130-400); RDW Coefficient of Variation 12.7 % (11.5-14.5); RDW Standard Deviation 44.9 fL (36.4-46.3)
[2021-02-09 07:15] LABS: Creatinine Clr Calc Pharmacy 78.1 ml/min; Est GFR (African American) 102.2 ml/min; Est GFR (Non-African American) 88.2 ml/min; Potassium 4.2 mmol/L (3.5-5.1)
[2021-02-09] MEDS: GABAPENTIN 100 MG CAP PO SCH ×4 (08:31→20:29)
[2021-02-09] MEDS: DOCUSATE SODIUM 100 MG CAP PO SCH (08:31)
[2021-02-09] MEDS: ENOXAPARIN INJ 40 MG/0.4 ML SYR SQ SCH (08:31)
[2021-02-09] MEDS: CHOLECALCIFEROL 1,000 UNITS 25 MCG TAB PO SCH (08:31)
[2021-02-09] MEDS: diazePAM 2 MG TABLET PO SCH ×3 (08:37→19:58)
--- NOTE | 2021-02-09 09:54 | Progress Notes ---
DATE OF SERVICE: 02/09/2021. SUBJECTIVE: A 71-year-old female postop day 2 from IM nailing of a right femoral neck/intertroch fra cture. She is doing okay. Pain with motion, but not while resting in bed. No other complaints. No chest pains. No other pains. OBJECTIVE: VITAL SIGNS: Temperature 37.5. Vital signs are stable. GENERAL: Shows a pleasant, elderly female. Lying in bed, looks pretty comfortable. EXTREMITIES: Examination of the right hip and leg reveals the leg to be well aligned. She does have a little bit of bruising at the incision site proximally, but no drainage. Minimal swelling. She i s neurologically intact. She can dorsiflex and plantarflex her foot appropriately. LABORATORY DATA: Hemoglobin 11.3. Hematocrit 35.8. Electrolytes are stable. ASSESSMENT: A 71-year-old female postop day 2 from IM nailing of a right femoral neck/intertroch fra cture. She is doing okay. Reasonable amount of pain which is not unexpected. Hemoglobin is stable. She is neurologically intact. PLAN: 1. DVT prophylaxis to include thigh-high TEDs, SCDs, and Lovenox for 1 month. 2. PT/OT. She can weight bear as tolerated on the right lower extremity. 3. Pain control, doing okay with current pain regimen. 4. Medical management as per the medicine service. 5. Disposition: She is okay for discharge to a senior care facility or rehab any time when medi tye stable. I need to see her back two to three weeks out from surgery date. Any orthopedic quest ions can be directed to me at [phone]. Job ID: [id number]
[2021-02-09] MEDS: oxyCODONE HCL IR 5 MG TAB (IMMEDIATE RELEASE) PO PRN ×2 (14:52→20:36)
--- NOTE | 2021-02-09 20:10 | Hospitalist Progress Note ---
Date of Service February 09, 2021 Assessment & Plan (1) Subcapital fracture of neck of femur: Plan: 70-year-old female with history of COPD, anxiety, GERD, meningioma status post surgery/radiotherapy, nonepileptic seizures, chronic intention tremors, past tobacco use presented to ED 02/04 with complaint of acute onset of right groin pain. Patient reports lifting heavy objects [2 gallon/another event of 12 pounds/another event of almost 2 gallon] the prior day of onset of right groin pain. Patient is being managed for the following: #. Right hip pain #. Subcapital femoral neck fracture Admitting CT scan of pelvis and hip and x-ray pelvis/hip negative for any fracture 02/05 MRI hip: moderate right proximal femoral marrow edema which is centered within the femoral neck extending into the intertrochanteric distribution. Findings are suggestive of a subtle acute fracture of the subcapital femoral neck. Acute stress response versus transient osteoporosis considered less likely. Likely pathological fracture, osteoporosis status unknown, vitamin D level WNL Orthopedics on board: 02/07 status post right femoral intramedullary antoinette. For DVT Px --> high TEDs and lovenox 40 mg SC for 2 weeks. Can fully weight bear on RT leg. F/u in 3 weeks from Sx date. Continue pain management. Patient will need outpatient orthopedics follow-up upon discharge. Hemoglobin stable around 11, continue to monitor for blood loss anemia. Incentive spirometry, PT/OT with orthopedics recommendation. #. Chronic medical conditions: History of meningioma/nonepileptic seizure/COPD Continue with home medication. DVT prophylaxis: Per orthopedics. On enoxaparin. Full code Disposition: Patient medically stable for discharge, orthopedics okay with discharge. We will send Covid test. She will need placement. manager balance working on placement. Admission and Anticipated Discharge Date Admission Date: February 06, 2021 Subjective Patient was lying in bed, room air, NAD, no new acute events overnight. Patient reports a small bowel movement. Patient reports feeling weak. Patient reporting pain at right hip repair site under control. Patient denies chest pain/palpitation/fever/other review of symptoms. Physical Exam Physical Exam: GENERAL: Oriented x3. NAD. Sleepy, on RA. HEENT: No pallor, no icterus. Pupils equal, round and reactive to light. Oral mucosa moist. NECK: No JVD, no neck masses. HEART: S1 and S2 heard. Regular rate and rhythm. No murmur, no gallop. RESPIRATORY SYSTEM: Normal AP diameter. No accessory muscle use. No wheezing, no crackles. ABDOMEN: Soft, bowel sounds present, nontender, no distention. CENTRAL NERVOUS SYSTEM: No facial droop. Speech is clear. Obeys simple commands. Moves extremities. EXTREMITIES: No edema, no erythema seen. BLE distal neurovascular status normal.
[2021-02-09] MEDS: DOCUSATE SODIUM/SENNA 50/8.6MG TAB PO SCH (20:25)
[2021-02-10] MEDS: ACETAMINOPHEN 500 MG TAB PO PRN ×2 (00:33→21:12)
[2021-02-10 07:30] LABS: Hematocrit (blood only) 33.8 % (37-47); Hemoglobin 10.9 g/dL (12.0-16.0); Mean Corpuscular Hemoglobin 31.1 pg (25-34); Mean Corpuscular Hgb Conc 32.2 g/dL (32-36); Mean Corpuscular Volume 96.3 fL (80-100); Mean Platelet Volume 10.5 fL (7.4-10.4); Platelet Count 223 K/uL (130-400); RDW Coefficient of Variation 12.6 % (11.5-14.5); RDW Standard Deviation 44.1 fL (36.4-46.3); Red Blood Count 3.51 M/uL (4.2-5.4); White Blood Count 5.38 K/uL (4.8-10.8)
[2021-02-10] MEDS: diazePAM 2 MG TABLET PO SCH ×3 (08:21→21:04)
[2021-02-10] MEDS: oxyCODONE HCL IR 5 MG TAB (IMMEDIATE RELEASE) PO PRN ×2 (08:22→14:45)
--- NOTE | 2021-02-10 08:22 | Progress Notes ---
DATE OF SERVICE: 02/10/2021. SUBJECTIVE: A 71-year-old female postop day 3 from IM nailing of right femoral neck/intertroch fract ure. She seems pretty stable. Some pain, but slowly improving. No new complaints. OBJECTIVE: VITAL SIGNS: Temperature 36.8. Vital signs are stable. GENERAL: Physical examination shows a frail, elderly female. She is lying in bed, resting comfortab ly this morning. EXTREMITIES: Examination of the right hip reveals the leg to be well aligned. The incisions are velma an and dry with a little bit of bruising. No drainage. She is neurologically intact. LABORATORY DATA: Hemoglobin 10.9. Hematocrit 33.8. Electrolytes not checked. ASSESSMENT: A 71-year-old female postop day 3 from IM nailing of a right intertrochanteric/femoral n jayna insufficiency fracture. Orthopedically, she is doing okay. She is stable. She does not need he r H and H checked anymore. She is waiting for placement. PLAN: 1. DVT prophylaxis to include thigh-high TEDs, SCDs, and Lovenox for 2 weeks. 2. PT/OT. She can fully weightbear as tolerated. 3. Pain control, doing okay with current pain regimen. 4. Medical management as per the medicine service. 5. Disposition: She is orthopedically okay for discharge any time medically stable. Any orthopedic questions can be directed to me at [phone]. I need to see her back anywhere from between 2 to 3 weeks out from surgery date. Job ID: [id number]
[2021-02-10] MEDS: GABAPENTIN 100 MG CAP PO SCH ×4 (08:23→21:04)
[2021-02-10] MEDS: ENOXAPARIN INJ 40 MG/0.4 ML SYR SQ SCH (08:23)
[2021-02-10] MEDS: CHOLECALCIFEROL 1,000 UNITS 25 MCG TAB PO SCH (08:24)
[2021-02-10] MEDS: DOCUSATE SODIUM 100 MG CAP PO SCH ×3 (08:24→21:04)
[2021-02-10] MEDS ORDERED: bisacodyL 10 MG SUPP PR STA (08:28)
--- NOTE | 2021-02-10 08:44 | Hospitalist Progress Note ---
Date of Service February 10, 2021 Assessment & Plan (1) Subcapital fracture of neck of femur: Plan: 70 yo F w/ hx of COPD, anxiety, GERD, meningioma status post surgery/radiotherapy, nonepileptic seizures, chronic intention tremors, past tobacco use presented to ED 02/04 with complaint of acute onset of right groin pain. Patient reports lifting heavy objects [2 gallon/another event of 12 pounds/another event of almost 2 gallon] the prior day of onset of right groin pain. Patient is being managed for the following: Right hip pain Subcapital femoral neck fracture Admitting CT scan of pelvis and hip and x-ray pelvis/hip negative for any fracture 02/05 MRI hip: moderate right proximal femoral marrow edema which is centered within the femoral neck extending into the intertrochanteric distribution. Findings are suggestive of a subtle acute fracture of the subcapital femoral neck. Acute stress response versus transient osteoporosis considered less likely. Likely pathological fracture, osteoporosis status unknown, vitamin D level WNL Orthopedics (Dr. Ornelas) consulted: 02/07 status post right femoral intramedullary antoinette. For DVT Px --> high TEDs and lovenox 40 mg SC daily for 2 weeks. Can fully weight bear on RT leg. F/u in 3 weeks from Sx date. Continue pain management. Patient will need outpatient orthopedics follow-up upon discharge. Hemoglobin stable around 11, continue to monitor for blood loss anemia. Incentive spirometry, PT/OT with orthopedics recommendation. Chronic medical conditions: History of meningioma/nonepileptic seizure/COPD Continue with home medication. DVT prophylaxis: Per orthopedics. On enoxaparin. Full code Disposition: Patient medically stable for discharge, orthopedics okay with discharge. We will send Covid test. She will need placement. dog races manager working on placement. Admission and Anticipated Discharge Date Admission Date: February 06, 2021 Subjective Pt seen in follow up of R hip surgery (on 04/09) Currently sitting up in chair in NAD, on RA Pt only reports constipation Patient denies chest pain/palpitation/fever/shortness of breath, abd. pain, n/v Review of Systems Review of Systems: All systems reviewed & are unremarkable except as noted in Subjective Physical Exam Physical Exam: GENERAL: Oriented x3. NAD. on RA HEENT:NC/AT. EOMI, PERRL. Oral mucosa moist. NECK: No JVD, no neck masses. HEART: S1 and S2 heard. Regular rate and rhythm. No murmur, no gallop. RESPIRATORY: Normal AP diameter. No accessory muscle use. No wheezing, no crackles. ABDOMEN: Soft, bowel sounds present, nontender, no distention. NEURO: No facial droop. Speech is clear. Moves extremities. EXTREMITIES: No edema, no erythema seen. BLE distal neurovascular status normal. Results & Data Results & Data ([facility]) Vital Signs (Past 12 Hours) Vital Signs Temp Pulse Pulse Resp BP BP Pulse Ox 02/10/21 07:51 36.8 C 73 18 100/64 90 02/09/21 23:13 37.0 C 81 18 118/72 92 Laboratory Results 02/10/21 Range/Units 06:57 WBC 5.38 (4.8-10.8) K/uL RBC 3.51 L (4.2-5.4) M/uL Hgb 10.9 L (12.0-16.0) g/dL Hct 33.8 L (37-47) % MCV 96.3 (80-100) fL MCH 31.1 (25-34) pg MCHC 32.2 (32-36) g/dL RDW Std Deviation 44.1 (36.4-46.3) fL RDW Coeff of Sissy 12.6 (11.5-14.5) % Plt Count 223 (130-400) K/uL MPV 10.5 H (7.4-10.4) fL Medications Administered Current Inpatient Medications Acetaminophen (Acetaminophen 500 Mg Tab) 1,000 mg PO TID PRN PRN Reason: pain/fever, headache Stop: 03/07/21 02:32 Last Admin: 02/10/21 00:33 Dose: 1,000 mg Documented by: Diazepam (Diazepam 2 Mg Tablet) 1 mg PO TID ARNOLDO Stop: 03/07/21 08:59 Last Admin: 02/10/21 08:21 Dose: 1 mg Documented by: Diclofenac Sodium (Diclofenac Sod 1% Gel 100 Gm Tube) 2 gm EXT Q6H PRN PRN Reason: Pain Stop: 03/07/21 02:32 Docusate Sodium (Docusate Sodium 100 Mg Cap) 100 mg PO BID ARNOLDO Stop: 03/12/21 08:59 Last Admin: 02/10/21 08:34 Dose: Not Given Documented by: Enoxaparin Sodium (Enoxaparin Inj 40 Mg/0.4 Ml Syr) 40 mg SQ Q24H [facility] Stop: 03/10/21 08:59 Last Admin: 02/10/21 08:23 Dose: 40 mg Documented by: Estrogens Conjugated (Premarin Vag Crm 14 Appln/30 Gm Tube) 1 appln PV MoFr@0900 ARNOLDO Stop: 03/10/21 08:59 Last Admin: 02/08/21 09:39 Dose: Not Given Documented by: Fluticasone Propionate (Fluticasone Propionate Na Spr 16 Gm Btl) 1 sprays NA DAILY PRN PRN Reason: allergies Stop: 03/07/21 02:40 Gabapentin (Gabapentin 100 Mg Cap) 100 mg PO BID [facility] Stop: 03/07/21 08:59 Last Admin: 02/10/21 08:23 Dose: 100 mg Documented by: Gabapentin (Gabapentin 100 Mg Cap) 100 mg PO BID [facility] Stop: 03/09/21 10:59 Last Admin: 02/10/21 08:24 Dose: Not Given Documented by: Promethazine HCl 6.25 mg/ (Sodium Chloride) 50.25 mls @ 201 mls/hr IV Q6H PRN PRN Reason: Nausea And Vomiting Stop: 03/08/21 01:16 Last Infusion: 02/06/21 02:38 Dose: Infused Documented by: Morphine Sulfate (Morphine Sulfate 2 Mg/Ml Carp) 2 mg IV Q6H PRN PRN Reason: Pain Stop: 02/19/21 02:32 Last Admin: 02/08/21 20:05 Dose: 2 mg Documented by: Ondansetron HCl (Ondansetron 4 Mg Od Tab) 4 mg PO Q12 PRN PRN Reason: Nausea Stop: 03/09/21 10:53 Last Admin: 02/08/21 04:52 Dose: 4 mg Documented by: Oxycodone HCl (Oxycodone Hcl Ir 5 Mg Tab (Immediate Release)) 5 - 10 mg PO QID PRN PRN Reason: Pain Stop: 02/19/21 02:32 Last Admin: 02/10/21 08:22 Dose: 10 mg Documented by: Polyethylene Glycol (Polyethylene (Miralax) 17 Gm Pack) 17 gm PO DAILY [facility] Stop: 03/12/21 08:59 Senna/Docusate Sodium (Docusate Sodium/Senna 50/8.6mg Tab) 1 tab PO HS ARNOLDO Stop: 03/07/21 20:59 Last Admin: 02/09/21 20:25 Dose: 1 tab Documented by: Vitamin D (Cholecalciferol 1,000 Units 25 Mcg Tab) 5,000 units PO DAILY ARNOLDO Stop: 03/09/21 10:59 Last Admin: 02/10/21 08:24 Dose: 5,000 units Documented by:
[2021-02-10] MEDS: POLYETHYLENE (MIRALAX) 17 GM PACK PO SCH (08:52)
[2021-02-10] MEDS: DOCUSATE SODIUM/SENNA 50/8.6MG TAB PO SCH (21:05)
[2021-02-11] MEDS: POLYETHYLENE (MIRALAX) 17 GM PACK PO SCH (09:22)
[2021-02-11] MEDS: ENOXAPARIN INJ 40 MG/0.4 ML SYR SQ SCH (09:22)
[2021-02-11] MEDS: DOCUSATE SODIUM 100 MG CAP PO SCH ×2 (09:23→20:22)
[2021-02-11] MEDS: CHOLECALCIFEROL 1,000 UNITS 25 MCG TAB PO SCH (09:23)
[2021-02-11] MEDS: GABAPENTIN 100 MG CAP PO SCH ×4 (09:23→20:31)
[2021-02-11] MEDS: diazePAM 2 MG TABLET PO SCH ×3 (09:24→20:29)
[2021-02-11] MEDS: ACETAMINOPHEN 500 MG TAB PO PRN ×2 (09:31→16:25)
--- NOTE | 2021-02-11 14:20 | Hospitalist Progress Note ---
Date of Service February 11, 2021 Assessment & Plan (1) Subcapital fracture of neck of femur: Plan: 70 yo F w/ hx of COPD, anxiety, GERD, meningioma status post surgery/radiotherapy, nonepileptic seizures, chronic intention tremors, past tobacco use presented to ED 02/04 with complaint of acute onset of right groin pain. Patient reports lifting heavy objects [2 gallon/another event of 12 pounds/another event of almost 2 gallon] the prior day of onset of right groin pain. Patient is being managed for the following: Right hip pain Subcapital femoral neck fracture Admitting CT scan of pelvis and hip and x-ray pelvis/hip negative for any fracture 02/05 MRI hip: moderate right proximal femoral marrow edema which is centered within the femoral neck extending into the intertrochanteric distribution. Findings are suggestive of a subtle acute fracture of the subcapital femoral neck. Acute stress response versus transient osteoporosis considered less likely. Likely pathological fracture, osteoporosis status unknown, vitamin D level [facility] (Dr. Ornelas) consulted: 02/07 status post right femoral intramedullary antoinette. For DVT Px --> high TEDs and lovenox 40 mg SC daily for 2 weeks. Can fully weight bear on RT leg. F/u in 3 weeks from Sx date. Continue pain management. Patient will need outpatient orthopedics follow-up upon discharge. Hemoglobin stable around 11, continue to monitor for blood loss anemia. Incentive spirometry, PT/OT with orthopedics recommendation. Constipation Pt reports difficulty having BMs even at home tried stool softeners - miralax, colace, suppository and even enema - will try milk of magnesia and lactulose enema Chronic medical conditions: History of meningioma/nonepileptic seizure/COPD Continue with home medication. DVT prophylaxis: Per orthopedics. On enoxaparin. Full code Disposition: Patient medically stable for discharge. We will send Spodly test. entry level account manager involved in placement. Admission and Anticipated Discharge Date Admission Date: February 06, 2021 Subjective Pt seen in follow up of R hip surgery (on 04/09) Currently sitting up in bed in NAD, on RA Pt reports constipation Patient denies chest pain/palpitation/fever/shortness of breath, abd. pain, n/v Review of Systems Review of Systems: All systems reviewed & are unremarkable except as noted in Subjective Physical Exam Physical Exam: GENERAL: Oriented x3. NAD. on RA HEENT:NC/AT. EOMI, PERRL. Oral mucosa moist. NECK: No JVD, no neck masses. HEART: S1 and S2 heard. Regular rate and rhythm. No murmur, no gallop. RESPIRATORY: Normal AP diameter. No accessory muscle use. No wheezing, no crackles. ABDOMEN: Soft, bowel sounds present, nontender, no distention. NEURO: No facial droop. Speech is clear. Moves extremities. EXTREMITIES: No edema, no erythema seen. BLE distal neurovascular status normal. Results & Data Results & Data ([facility]) Vital Signs (Past 12 Hours) Vital Signs Temp Pulse Resp BP Pulse Ox 02/11/21 07:58 37.0 C 77 16 114/68 94 Medications Administered Current Inpatient Medications Acetaminophen (Acetaminophen 500 Mg Tab) 1,000 mg PO TID PRN PRN Reason: pain/fever, headache Stop: 03/07/21 02:32 Last Admin: 02/11/21 09:31 Dose: 1,000 mg Documented by: Diazepam (Diazepam 2 Mg Tablet) 1 mg PO TID [facility] Stop: 03/07/21 08:59 Last Admin: 02/11/21 09:24 Dose: 1 mg Documented by: Diclofenac Sodium (Diclofenac Sod 1% Gel 100 Gm Tube) 2 gm EXT Q6H PRN PRN Reason: Pain Stop: 03/07/21 02:32 Docusate Sodium (Docusate Sodium 100 Mg Cap) 100 mg PO BID [facility] Stop: 03/12/21 08:59 Last Admin: 02/11/21 09:23 Dose: 100 mg Documented by: Enoxaparin Sodium (Enoxaparin Inj 40 Mg/0.4 Ml Syr) 40 mg SQ Q24H [facility] Stop: 03/10/21 08:59 Last Admin: 02/11/21 09:22 Dose: 40 mg Documented by: Estrogens Conjugated (Premarin Vag Crm 14 Appln/30 Gm Tube) 1 appln PV MoFr@0900 [facility] Stop: 03/10/21 08:59 Last Admin: 02/08/21 09:39 Dose: Not Given Documented by: Fluticasone Propionate (Fluticasone Propionate Na Spr 16 Gm Btl) 1 sprays NA DAILY PRN PRN Reason: allergies Stop: 03/07/21 02:40 Gabapentin (Gabapentin 100 Mg Cap) 100 mg PO BID [facility] Stop: 03/07/21 08:59 Last Admin: 02/11/21 09:23 Dose: 100 mg Documented by: Gabapentin (Gabapentin 100 Mg Cap) 100 mg PO BID [facility] Stop: 03/09/21 10:59 Last Admin: 02/11/21 09:34 Dose: Not Given Documented by: Promethazine HCl 6.25 mg/ (Sodium Chloride) 50.25 mls @ 201 mls/hr IV Q6H PRN PRN Reason: Nausea And Vomiting Stop: 03/08/21 01:16 Last Infusion: 02/06/21 02:38 Dose: Infused Documented by: Morphine Sulfate (Morphine Sulfate 2 Mg/Ml Carp) 2 mg IV Q6H PRN PRN Reason: Pain Stop: 02/19/21 02:32 Last Admin: 02/08/21 20:05 Dose: 2 mg Documented by: Ondansetron HCl (Ondansetron 4 Mg Od Tab) 4 mg PO Q12 PRN PRN Reason: Nausea Stop: 03/09/21 10:53 Last Admin: 02/08/21 04:52 Dose: 4 mg Documented by: Oxycodone HCl (Oxycodone Hcl Ir 5 Mg Tab (Immediate Release)) 5 - 10 mg PO QID PRN PRN Reason: Pain Stop: 02/19/21 02:32 Last Admin: 02/10/21 14:45 Dose: 10 mg Documented by: Polyethylene Glycol (Polyethylene (Miralax) 17 Gm Pack) 17 gm PO DAILY [facility] Stop: 03/12/21 08:59 Last Admin: 02/11/21 09:22 Dose: 17 gm Documented by: Senna/Docusate Sodium (Docusate Sodium/Senna 50/8.6mg Tab) 1 tab PO HS [facility] Stop: 03/07/21 20:59 Last Admin: 02/10/21 21:05 Dose: 1 tab Documented by: Vitamin D (Cholecalciferol 1,000 Units 25 Mcg Tab) 5,000 units PO DAILY [facility] Stop: 03/09/21 10:59 Last Admin: 02/11/21 09:23 Dose: 5,000 units Documented by:
[2021-02-11] MEDS ORDERED: MAGNESIUM HYDROXIDE SUSP 30 ML UDC PO ONE (17:33)
[2021-02-11] MEDS: bisacodyL 5 MG TABEC PO SCH (18:01)
[2021-02-11] MEDS: LACTULOSE 200 GM, WATER, STERILE IRRIG 700 ML, BARCODE IDENTIFIER 1 EA PR SCH (20:16)
[2021-02-11] MEDS: UNIT DOSE COMPOUND PR SCH (20:17)
[2021-02-11] MEDS: DOCUSATE SODIUM/SENNA 50/8.6MG TAB PO SCH (20:24)
[2021-02-11] MEDS: oxyCODONE HCL IR 5 MG TAB (IMMEDIATE RELEASE) PO PRN (20:28)
[2021-02-12] MEDS: UNIT DOSE COMPOUND PR SCH ×2 (01:36→09:42)
[2021-02-12] MEDS: LACTULOSE 200 GM, WATER, STERILE IRRIG 700 ML, BARCODE IDENTIFIER 1 EA PR SCH ×2 (01:37→09:42)
[2021-02-12] MEDS: ONDANSETRON 4 MG OD TAB PO PRN (02:21)
[2021-02-12] MEDS: ACETAMINOPHEN 500 MG TAB PO PRN (05:37)
--- NOTE | 2021-02-12 07:08 | Hospitalist Progress Note ---
Date of Service February 12, 2021 Assessment & Plan (1) Subcapital fracture of neck of femur: Plan: 70 yo F w/ hx of COPD, anxiety, GERD, meningioma status post surgery/radiotherapy, nonepileptic seizures, chronic intention tremors, past tobacco use presented to ED 02/04 with complaint of acute onset of right groin pain. Patient reports lifting heavy objects [2 gallon/another event of 12 pounds/another event of almost 2 gallon] the prior day of onset of right groin pain. Patient is being managed for the following: Right hip pain Subcapital femoral neck fracture Admitting CT scan of pelvis and hip and x-ray pelvis/hip negative for any fracture 02/05 MRI hip: moderate right proximal femoral marrow edema which is centered within the femoral neck extending into the intertrochanteric distribution. Findings are suggestive of a subtle acute fracture of the subcapital femoral neck. Acute stress response versus transient osteoporosis considered less likely. Likely pathological fracture, osteoporosis status unknown, vitamin D level [facility] (Dr. Ornelas) consulted: 02/07 status post right femoral intramedullary antoinette. For DVT Px --> high TEDs and lovenox 40 mg SC daily for 2 weeks. Can fully weight bear on RT leg. F/u in 2-3 weeks from Sx date. Continue pain management. Patient will need outpatient orthopedics follow-up upon discharge. Hemoglobin stable around 11 Incentive spirometry, PT/OT with orthopedics recommendation. Constipation Pt reports difficulty having BMs even at home tried stool softeners - miralax, colace, suppository and even enema - gave milk of magnesia - resolved Chronic medical conditions: History of meningioma/nonepileptic seizure/COPD Continue with home medication. DVT prophylaxis: Per orthopedics. On enoxaparin. Full code Disposition: Patient medically stable for discharge. We will send Covid test. infrastructure project manager involved in placement. Admission and Anticipated Discharge Date Admission Date: February 06, 2021 Subjective Pt seen in follow up of R hip surgery (on 04/09) Currently sitting up in chair in NAD, on RA Pt reports constipation now resolved Patient denies chest pain/palpitation/fever/shortness of breath, abd. pain, n/v Review of Systems Review of Systems: All systems reviewed & are unremarkable except as noted in Subjective Physical Exam Physical Exam: GENERAL:Alert Oriented x3. NAD. on RA HEENT:NC/AT. EOMI, PERRL. Oral mucosa moist. NECK: No JVD, no neck masses. HEART: S1 and S2 heard. Regular rate and rhythm. No murmur, no gallop. RESPIRATORY: Normal AP diameter. No accessory muscle use. No wheezing, no crackles. ABDOMEN: Soft, bowel sounds present, nontender, no distention. NEURO: No facial droop. Speech is clear. Moves extremities. EXTREMITIES: No edema, no erythema seen. Moves extremities. Results & Data Results & Data ([facility]) Vital Signs (Past 12 Hours) Vital Signs Temp Pulse Resp BP Pulse Ox 02/11/21 22:17 36.7 C 64 16 100/63 93 Laboratory Results 02/12/21 Range/Units 07:43 Sodium 143 (136-145) mmol/L Potassium 4.1 (3.5-5.1) mmol/L Chloride 109 H (98-107) mmol/L Carbon Dioxide 26 (21-32) mmol/L Anion Gap 8.0 (3-11) BUN 30 H (7-18) mg/dl Creatinine 0.67 (0.6-1.2) mg/dl Est Cr Clr Drug Dosing 80.4 ml/min Est GFR ( Amer) 103.2 ml/min Est GFR (Non-Af Amer) 89.1 ml/min BUN/Creatinine Ratio 44.9 H (10-20) Glucose 99 (70-99) mg/dl Calcium 8.9 (8.5-10.1) mg/dl Magnesium 2.6 H (1.8-2.4) mg/dl Medications Administered Current Inpatient Medications Acetaminophen (Acetaminophen 500 Mg Tab) 1,000 mg PO TID PRN PRN Reason: pain/fever, headache Stop: 03/07/21 02:32 Last Admin: 02/12/21 05:37 Dose: 1,000 mg Documented by: Bisacodyl (Bisacodyl 5 Mg Tabec) 5 mg PO DAILY [facility] Stop: 03/13/21 17:59 Last Admin: 02/11/21 18:01 Dose: 5 mg Documented by: Lactulose 200 gm/ Sterile Water 700 ml/ BARCODE IDENTIFIER 1 ea 0 gm OK Q8H [facility] Stop: 03/13/21 17:59 Last Admin: 02/12/21 01:37 Dose: Not Given Documented by: Diazepam (Diazepam 2 Mg Tablet) 1 mg PO TID [facility] Stop: 03/07/21 08:59 Last Admin: 02/11/21 20:29 Dose: 1 mg Documented by: Diclofenac Sodium (Diclofenac Sod 1% Gel 100 Gm Tube) 2 gm EXT Q6H PRN PRN Reason: Pain Stop: 03/07/21 02:32 Docusate Sodium (Docusate Sodium 100 Mg Cap) 100 mg PO BID [facility] Stop: 03/12/21 08:59 Last Admin: 02/11/21 20:22 Dose: Not Given Documented by: Enoxaparin Sodium (Enoxaparin Inj 40 Mg/0.4 Ml Syr) 40 mg SQ Q24H [facility] Stop: 03/10/21 08:59 Last Admin: 02/11/21 09:22 Dose: 40 mg Documented by: Estrogens Conjugated (Premarin Vag Crm 14 Appln/30 Gm Tube) 1 appln PV MoFr@09 00 [facility] Stop: 03/10/21 08:59 Last Admin: 02/08/21 09:39 Dose: Not Given Documented by: Fluticasone Propionate (Fluticasone Propionate Na Spr 16 Gm Btl) 1 sprays NA DAILY PRN PRN Reason: allergies Stop: 03/07/21 02:40 Gabapentin (Gabapentin 100 Mg Cap) 100 mg PO BID [facility] Stop: 03/07/21 08:59 Last Admin: 02/11/21 20:31 Dose: 100 mg Documented by: Gabapentin (Gabapentin 100 Mg Cap) 100 mg PO BID [facility] Stop: 03/09/21 10:59 Last Admin: 02/11/21 20:24 Dose: Not Given Documented by: Promethazine HCl 6.25 mg/ (Sodium Chloride) 50.25 mls @ 201 mls/hr IV Q6H PRN PRN Reason: Nausea And Vomiting Stop: 03/08/21 01:16 Last Infusion: 02/06/21 02:38 Dose: Infused Documented by: Miscellaneous (Unit Dose Compound) 1 ea OK Q8H [facility] Stop: 03/13/21 17:44 Last Admin: 02/12/21 01:36 Dose: Not Given Documented by: Morphine Sulfate (Morphine Sulfate 2 Mg/Ml Carp) 2 mg IV Q6H PRN PRN Reason: Pain Stop: 02/19/21 02:32 Last Admin: 02/08/21 20:05 Dose: 2 mg Documented by: Ondansetron HCl (Ondansetron 4 Mg Od Tab) 4 mg PO Q12 PRN PRN Reason: Nausea Stop: 03/09/21 10:53 Last Admin: 02/12/21 02:21 Dose: 4 mg Documented by: Oxycodone HCl (Oxycodone Hcl Ir 5 Mg Tab (Immediate Release)) 5 - 10 mg PO QID PRN PRN Reason: Pain Stop: 02/19/21 02:32 Last Admin: 02/11/21 20:28 Dose: 5 mg Documented by: Polyethylene Glycol (Polyethylene (Miralax) 17 Gm Pack) 17 gm PO DAILY [facility] Stop: 03/12/21 08:59 Last Admin: 02/11/21 09:22 Dose: 17 gm Documented by: Senna/Docusate Sodium (Docusate Sodium/Senna 50/8.6mg Tab) 1 tab PO HS [facility] Stop: 03/07/21 20:59 Last Admin: 02/11/21 20:24 Dose: 1 tab Documented by: Vitamin D (Cholecalciferol 1,000 Units 25 Mcg Tab) 5,000 units PO DAILY [facility] Stop: 03/09/21 10:59 Last Admin: 02/11/21 09:23 Dose: 5,000 units Documented by:
[2021-02-12 09:13] LABS: BUN Creatinine Ratio 44.9 (10-20); Calcium 8.9 mg/dl (8.5-10.1); Creatinine Clr Calc Pharmacy 80.4 ml/min; Est GFR (African American) 103.2 ml/min; Est GFR (Non-African American) 89.1 ml/min; Magnesium 2.6 mg/dl (1.8-2.4); Potassium 4.1 mmol/L (3.5-5.1)
[2021-02-12] MEDS: bisacodyL 5 MG TABEC PO SCH (09:40)
[2021-02-12] MEDS: GABAPENTIN 100 MG CAP PO SCH ×3 (09:40→21:18)
[2021-02-12] MEDS: CHOLECALCIFEROL 1,000 UNITS 25 MCG TAB PO SCH (09:40)
[2021-02-12] MEDS: DOCUSATE SODIUM 100 MG CAP PO SCH ×2 (09:41→21:17)
[2021-02-12] MEDS: POLYETHYLENE (MIRALAX) 17 GM PACK PO SCH (09:41)
[2021-02-12] MEDS: ENOXAPARIN INJ 40 MG/0.4 ML SYR SQ SCH (09:41)
[2021-02-12] MEDS: oxyCODONE HCL IR 5 MG TAB (IMMEDIATE RELEASE) PO PRN (09:48)
[2021-02-12] MEDS: diazePAM 2 MG TABLET PO SCH ×3 (09:48→21:17)
[2021-02-12] MEDS: PREMARIN VAG CRM 14 APPLN/30 GM TUBE PV SCH (11:37)
[2021-02-12] MEDS: DOCUSATE SODIUM/SENNA 50/8.6MG TAB PO SCH (21:17)
[2021-02-13] MEDS: ONDANSETRON 4 MG OD TAB PO PRN (02:13)
[2021-02-13] MEDS: oxyCODONE HCL IR 5 MG TAB (IMMEDIATE RELEASE) PO PRN (02:13)
[2021-02-13] MEDS: bisacodyL 5 MG TABEC PO SCH (09:03)
[2021-02-13] MEDS: ENOXAPARIN INJ 40 MG/0.4 ML SYR SQ SCH ×2 (09:04→10:35)
[2021-02-13] MEDS: CHOLECALCIFEROL 1,000 UNITS 25 MCG TAB PO SCH (09:04)
[2021-02-13] MEDS: POLYETHYLENE (MIRALAX) 17 GM PACK PO SCH (09:04)
[2021-02-13] MEDS: DOCUSATE SODIUM 100 MG CAP PO SCH ×2 (09:05→20:59)
[2021-02-13] MEDS: diazePAM 2 MG TABLET PO SCH ×3 (09:05→21:00)
[2021-02-13] MEDS: GABAPENTIN 100 MG CAP PO SCH ×2 (09:05→21:02)
[2021-02-13] MEDS: TOLTERODINE TARTRATE LA 2 MG CAPCR PO SCH (10:34)
[2021-02-13 11:08] LABS: Appearance Urine Cloudy (Clear); Bacteria Urine Automated 1+ (Negative); Bilirubin Urine Negative (Negative); Blood Urine Trace (Negative); Color Urine Yellow; Glucose Urine UA Negative (Negative); Ketones Urine Negative (Negative); Leukocyte Esterase Urine 3+ (Negative); Nitrite Urine Negative (Negative); Protein Urine Trace (Negative); Specific Gravity Urine 1.019 (1.000-1.030); Urobilinogen Urine Negative (Negative); WBC Urine Automated >30 /hpf (0-5)
[2021-02-13] MEDS ORDERED: cefTRIAXone SODIUM 1,000 MG in DEXTROSE 5% 50 ML IV SCH (12:30)
[2021-02-13] MEDS ORDERED: CIPROFLOXACIN 500 MG TAB PO ONE (12:45)
[2021-02-13] MEDS: ADVANCED PROBIOTIC 1250 MG CAPSULE PO SCH (14:02)
--- NOTE | 2021-02-13 16:55 | Hospitalist Progress Note ---
Date of Service February 13, 2021 Assessment & Plan (1) Subcapital fracture of neck of femur: Plan: 70 yo F w/ hx of COPD, anxiety, GERD, meningioma status post surgery/radiotherapy, nonepileptic seizures, chronic intention tremors, past tobacco use presented to ED 02/04 with complaint of acute onset of right groin pain. Patient reports lifting heavy objects [2 gallon/another event of 12 pounds/another event of almost 2 gallon] the prior day of onset of right groin pain. Patient is being managed for the following: Right hip pain Subcapital femoral neck fracture Admitting CT scan of pelvis and hip and x-ray pelvis/hip negative for any fracture 02/05 MRI hip: moderate right proximal femoral marrow edema which is centered within the femoral neck extending into the intertrochanteric distribution. Findings are suggestive of a subtle acute fracture of the subcapital femoral neck. Acute stress response versus transient osteoporosis considered less likely. Likely pathological fracture, osteoporosis status unknown, vitamin D level [facility] (Dr. Ornelas) consulted: 02/07 status post right femoral intramedullary antoinette. For DVT Px --> high TEDs and lovenox 40 mg SC daily for 2 weeks. Can fully weight bear on RT leg. F/u in 2-3 weeks from Sx date. Continue pain management. Patient will need outpatient orthopedics follow-up upon discharge. Hemoglobin stable around 11 Incentive spirometry, PT/OT with orthopedics recommendation. Constipation Pt reports difficulty having BMs even at home tried stool softeners - miralax, colace, suppository and even enema - gave milk of magnesia - resolved Chronic medical conditions: History of meningioma/nonepileptic seizure/COPD Continue with home medication. DVT prophylaxis: Per orthopedics. On enoxaparin. Full code Disposition: Patient medically stable for discharge. We will send Covid test. sow manager involved in placement. Admission and Anticipated Discharge Date Admission Date: February 06, 2021 Subjective Pt seen in follow up of R hip surgery (on 04/09) Currently sitting up in chair in NAD, on RA Pt reports constipation now resolved Overnight reports dysuria, will obtain UA Patient denies chest pain/palpitation/fever/shortness of breath, abd. pain, n/v Reports she was prescribed Vesicare, by urology, and would like to be on the medication, as vesicare not available in the hospital, will start Detrol. Review of Systems Review of Systems: All systems reviewed & are unremarkable except as noted in Subjective Physical Exam Physical Exam: GENERAL:Alert Oriented x3. NAD. on RA HEENT:NC/AT. EOMI, PERRL. Oral mucosa moist. NECK: No JVD, no neck masses. HEART: S1 and S2 heard. Regular rate and rhythm. No murmur, no gallop. RESPIRATORY: Normal AP diameter. No accessory muscle use. No wheezing, no crackles. ABDOMEN: Soft, bowel sounds present, nontender, no distention. NEURO: No facial droop. Speech is clear. Moves extremities. EXTREMITIES: No edema, no erythema seen. Moves extremities. Results & Data Results & Data ([facility]) Vital Signs (Past 12 Hours) Vital Signs Temp Pulse Resp BP Pulse Ox 02/13/21 16:24 36.8 C 75 16 118/77 92 02/13/21 07:32 36.6 C 73 16 97/62 L 90 Laboratory Results 02/13/21 Range/Units 10:58 Urine Color Yellow Urine Appearance Cloudy A (Clear) Urine pH 7.0 (4.5-7.5) Ur Specific [place] 1.019 (1.000-1.030) Urine Protein Trace H (Negative) Urine Glucose (UA) Negative (Negative) Urine Ketones Negative (Negative) Urine Blood Trace H (Negative) Urine Nitrite Negative (Negative) Urine Bilirubin Negative (Negative) Urine Urobilinogen Negative (Negative) Ur Leukocyte Esterase 3+ H (Negative) Urine WBC (Auto) >30 H (0-5) /hpf Urine RBC (Auto) 5-10 H (0-4) /hpf U Hyaline Cast (Auto) 1-5 (0-5) /lpf U Epithel Cells (Auto) 10-20 H (0-5) /lpf Urine Bacteria (Auto) 1+ H (Negative) Medications Administered Current Inpatient Medications Acetaminophen (Acetaminophen 500 Mg Tab) 1,000 mg PO TID PRN PRN Reason: pain/fever, headache Stop: 03/07/21 02:32 Last Admin: 02/12/21 05:37 Dose: 1,000 mg Documented by: Bisacodyl (Bisacodyl 5 Mg Tabec) 5 mg PO DAILY [facility] Stop: 03/13/21 17:59 Last Admin: 02/13/21 09:03 Dose: Not Given Documented by: Calcium Carbonate (Calcium Carbonate 500 Mg Chewable Tab) 500 mg PO Q6H PRN PRN Reason: Indigestion Stop: 03/14/21 22:42 Ciprofloxacin (Ciprofloxacin 500 Mg Tab) 500 mg PO BID [facility] Stop: 02/18/21 20:59 Diazepam (Diazepam 2 Mg Tablet) 1 mg PO TID [facility] Stop: 03/07/21 08:59 Last Admin: 02/13/21 14:06 Dose: 1 mg Documented by: Diclofenac Sodium (Diclofenac Sod 1% Gel 100 Gm Tube) 2 gm EXT Q6H PRN PRN Reason: Pain Stop: 03/07/21 02:32 Docusate Sodium (Docusate Sodium 100 Mg Cap) 100 mg PO BID [facility] Stop: 03/12/21 08:59 Last Admin: 02/13/21 09:05 Dose: 100 mg Documented by: Enoxaparin Sodium (Enoxaparin Inj 40 Mg/0.4 Ml Syr) 40 mg SQ Q24H [facility] Stop: 03/10/21 08:59 Last Admin: 02/13/21 10:35 Dose: 40 mg Documented by: Estrogens Conjugated (Premarin Vag Crm 14 Appln/30 Gm Tube) 1 appln PV MoFr@0900 [facility] Stop: 03/10/21 08:59 Last Admin: 02/12/21 11:37 Dose: Not Given Documented by: Fluticasone Propionate (Fluticasone Propionate Na Spr 16 Gm Btl) 1 sprays NA DAILY PRN PRN Reason: allergies Stop: 03/07/21 02:40 Gabapentin (Gabapentin 100 Mg Cap) 100 mg PO BID [facility] Stop: 03/09/21 10:59 Last Admin: 02/13/21 09:05 Dose: 100 mg Documented by: Promethazine HCl 6.25 mg/ (Sodium Chloride) 50.25 mls @ 201 mls/hr IV Q6H PRN PRN Reason: Nausea And Vomiting Stop: 03/08/21 01:16 Last Infusion: 02/06/21 02:38 Dose: Infused Documented by: Lactobacillus Acidoph/Casei/Rhamnos (Advanced Probiotic 1250 Mg Capsule) 2 cap PO DAILY [facility] Stop: 03/15/21 12:44 Last Admin: 02/13/21 14:02 Dose: 2 cap Documented by: Morphine Sulfate (Morphine Sulfate 2 Mg/Ml Carp) 2 mg IV Q6H PRN PRN Reason: Pain Stop: 02/19/21 02:32 Last Admin: 02/08/21 20:05 Dose: 2 mg Documented by: Ondansetron HCl (Ondansetron 4 Mg Od Tab) 4 mg PO Q12 PRN PRN Reason: Nausea Stop: 03/09/21 10:53 Last Admin: 02/13/21 02:13 Dose: 4 mg Documented by: Oxycodone HCl (Oxycodone Hcl Ir 5 Mg Tab (Immediate Release)) 5 - 10 mg PO QID PRN PRN Reason: Pain Stop: 02/19/21 02:32 Last Admin: 02/13/21 02:13 Dose: 5 mg Documented by: Polyethylene Glycol (Polyethylene (Miralax) 17 Gm Pack) 17 gm PO DAILY [facility] Stop: 03/12/21 08:59 Last Admin: 02/13/21 09:04 Dose: Not Given Documented by: Senna/Docusate Sodium (Docusate Sodium/Senna 50/8.6mg Tab) 1 tab PO HS [facility] Stop: 03/07/21 20:59 Last Admin: 02/12/21 21:17 Dose: 1 tab Documented by: Tolterodine Tartrate (Tolterodine Tartrate La 2 Mg Capcr) 2 mg PO QAM [facility] Stop: 03/15/21 09:59 Last Admin: 02/13/21 10:34 Dose: 2 mg Documented by: Vitamin D (Cholecalciferol 1,000 Units 25 Mcg Tab) 5,000 units PO DAILY [facility] Stop: 03/09/21 10:59 Last Admin: 02/13/21 09:04 Dose: 5,000 units Documented by:
[2021-02-13] MEDS: CIPROFLOXACIN 500 MG TAB PO SCH (21:01)
[2021-02-13] MEDS: DOCUSATE SODIUM/SENNA 50/8.6MG TAB PO SCH (21:01)
[2021-02-14 07:57] LABS: Hematocrit (blood only) 33.7 % (37-47); Hemoglobin 10.9 g/dL (12.0-16.0); Mean Corpuscular Hemoglobin 30.9 pg (25-34); Mean Corpuscular Hgb Conc 32.3 g/dL (32-36); Mean Corpuscular Volume 95.5 fL (80-100); Mean Platelet Volume 10.2 fL (7.4-10.4); Platelet Count 276 K/uL (130-400); RDW Coefficient of Variation 12.7 % (11.5-14.5); RDW Standard Deviation 43.8 fL (36.4-46.3); Red Blood Count 3.53 M/uL (4.2-5.4); White Blood Count 4.73 K/uL (4.8-10.8)
[2021-02-14 08:15] LABS: BUN Creatinine Ratio 33.5 (10-20); Calcium 8.6 mg/dl (8.5-10.1); Creatinine Clr Calc Pharmacy 78.1 ml/min; Est GFR (African American) 102.2 ml/min; Est GFR (Non-African American) 88.2 ml/min
[2021-02-14] MEDS: bisacodyL 5 MG TABEC PO SCH (09:27)
[2021-02-14] MEDS: POLYETHYLENE (MIRALAX) 17 GM PACK PO SCH (09:29)
[2021-02-14] MEDS: DOCUSATE SODIUM 100 MG CAP PO SCH ×2 (09:30→20:52)
[2021-02-14] MEDS: TOLTERODINE TARTRATE LA 2 MG CAPCR PO SCH (09:34)
[2021-02-14] MEDS: ADVANCED PROBIOTIC 1250 MG CAPSULE PO SCH (09:35)
[2021-02-14] MEDS: CHOLECALCIFEROL 1,000 UNITS 25 MCG TAB PO SCH (09:35)
[2021-02-14] MEDS: diazePAM 2 MG TABLET PO SCH ×3 (09:36→20:50)
[2021-02-14] MEDS: GABAPENTIN 100 MG CAP PO SCH ×2 (09:36→20:52)
[2021-02-14] MEDS: CIPROFLOXACIN 500 MG TAB PO SCH ×2 (09:36→20:51)
[2021-02-14] MEDS: oxyCODONE HCL IR 5 MG TAB (IMMEDIATE RELEASE) PO PRN (11:28)
[2021-02-14] MEDS: ENOXAPARIN INJ 40 MG/0.4 ML SYR SQ SCH (11:44)
--- NOTE | 2021-02-14 18:32 | Hospitalist Progress Note ---
Date of Service February 14, 2021 Assessment & Plan (1) Subcapital fracture of neck of femur: Plan: 70 yo F w/ hx of COPD, anxiety, GERD, meningioma status post surgery/radiotherapy, nonepileptic seizures, chronic intention tremors, past tobacco use presented to ED 02/04 with complaint of acute onset of right groin pain. Patient reports lifting heavy objects [2 gallon/another event of 12 pounds/another event of almost 2 gallon] the prior day of onset of right groin pain. Patient is being managed for the following: Right hip pain Subcapital femoral neck fracture Admitting CT scan of pelvis and hip and x-ray pelvis/hip negative for any fracture 02/05 MRI hip: moderate right proximal femoral marrow edema which is centered within the femoral neck extending into the intertrochanteric distribution. Findings are suggestive of a subtle acute fracture of the subcapital femoral neck. Acute stress response versus transient osteoporosis considered less likely. Likely pathological fracture, osteoporosis status unknown, vitamin D level [facility] (Dr. Ornelas) consulted: 02/07 status post right femoral intramedullary antoinette. For DVT Px --> high TEDs and lovenox 40 mg SC daily for 2 weeks. Can fully weight bear on RT leg. F/u in 2-3 weeks from Sx date. Continue pain management. Patient will need outpatient orthopedics follow-up upon discharge. Hemoglobin stable around 11 Incentive spirometry, PT/OT with orthopedics recommendation. poss. UTI -Patient reported dysuria symptoms -Obtained UA, and started empiric ciprofloxacin -UA obtained on admission, and urine culture positive for Proteus mirabilis -At the time no antibiotic started, reviewing chart, patient did not seem to have any symptoms at that time, therefore likely thought of asymptomatic bacteriuria -Await current final culture Constipation Pt reports difficulty having BMs even at home tried stool softeners - miralax, colace, suppository and even enema - gave milk of magnesia - resolved Chronic medical conditions: History of meningioma/nonepileptic seizure/COPD Continue with home medication. DVT prophylaxis: Per orthopedics. On enoxaparin. Full code Disposition: Patient medically stable for discharge. event planning manager involved in placement. Likely DC to [facility]. Admission and Anticipated Discharge Date Admission Date: February 06, 2021 Subjective Pt seen in follow up of R hip surgery (on 04/09) Currently in NAD, on RA Patient denies chest pain/palpitation/fever/shortness of breath, abd. pain, n/v Review of Systems Review of Systems: All systems reviewed & are unremarkable except as noted in Subjective Physical Exam Physical Exam: GENERAL:Alert Oriented x3. NAD. on RA HEENT:NC/AT. EOMI, PERRL. Oral mucosa moist. NECK: No JVD, no neck masses. HEART: S1 and S2 heard. Regular rate and rhythm. No murmur, no gallop. RESPIRATORY: Normal AP diameter. No accessory muscle use. No wheezing, no crackles. ABDOMEN: Soft, bowel sounds present, nontender, no distention. NEURO: No facial droop. Speech is clear. Moves extremities. EXTREMITIES: No edema, no erythema seen. Moves extremities. Results & Data Results & Data ([facility]) Vital Signs (Past 12 Hours) Vital Signs Temp Pulse Resp BP Pulse Ox 02/14/21 17:03 36.5 C 73 16 98/57 L 91 02/14/21 08:30 36.8 C 61 16 107/65 90 Laboratory Results 02/14/21 02/14/21 Range/Units 07:46 07:46 WBC 4.73 L (4.8-10.8) K/uL RBC 3.53 L (4.2-5.4) M/uL Hgb 10.9 L (12.0-16.0) g/dL Hct 33.7 L (37-47) % MCV 95.5 (80-100) fL MCH 30.9 (25-34) pg MCHC 32.3 (32-36) g/dL RDW Std Deviation 43.8 (36.4-46.3) fL RDW Coeff of Sissy 12.7 (11.5-14.5) % Plt Count 276 (130-400) K/uL MPV 10.2 (7.4-10.4) fL Sodium 143 (136-145) mmol/L Potassium 4.0 (3.5-5.1) mmol/L Chloride 109 H (98-107) mmol/L Carbon Dioxide 26 (21-32) mmol/L Anion Gap 8.0 (3-11) BUN 23 H (7-18) mg/dl Creatinine 0.69 (0.6-1.2) mg/dl Est Cr Clr Drug Dosing 78.1 ml/min Est GFR ( Amer) 102.2 ml/min Est GFR (Non-Af Amer) 88.2 ml/min BUN/Creatinine Ratio 33.5 H (10-20) Glucose 105 H (70-99) mg/dl Calcium 8.6 (8.5-10.1) mg/dl Medications Administered Current Inpatient Medications Acetaminophen (Acetaminophen 500 Mg Tab) 1,000 mg PO TID PRN PRN Reason: pain/fever, headache Stop: 03/07/21 02:32 Last Admin: 02/12/21 05:37 Dose: 1,000 mg Documented by: Bisacodyl (Bisacodyl 5 Mg Tabec) 5 mg PO DAILY [facility] Stop: 03/13/21 17:59 Last Admin: 02/14/21 09:27 Dose: Not Given Documented by: Calcium Carbonate (Calcium Carbonate 500 Mg Chewable Tab) 500 mg PO Q6H PRN PRN Reason: Indigestion Stop: 03/14/21 22:42 Ciprofloxacin (Ciprofloxacin 500 Mg Tab) 500 mg PO BID [facility] Stop: 02/18/21 20:59 Last Admin: 02/14/21 09:36 Dose: 500 mg Documented by: Diazepam (Diazepam 2 Mg Tablet) 1 mg PO TID [facility] Stop: 03/07/21 08:59 Last Admin: 02/14/21 13:33 Dose: 1 mg Documented by: Diclofenac Sodium (Diclofenac Sod 1% Gel 100 Gm Tube) 2 gm EXT Q6H PRN PRN Reason: Pain Stop: 03/07/21 02:32 Docusate Sodium (Docusate Sodium 100 Mg Cap) 100 mg PO BID [facility] Stop: 03/12/21 08:59 Last Admin: 02/14/21 09:30 Dose: Not Given Documented by: Enoxaparin Sodium (Enoxaparin Inj 40 Mg/0.4 Ml Syr) 40 mg SQ Q24H [facility] Stop: 03/10/21 08:59 Last Admin: 02/14/21 11:44 Dose: 40 mg Documented by: Estrogens Conjugated (Premarin Vag Crm 14 Appln/30 Gm Tube) 1 appln PV MoFr@0900 [facility] Stop: 03/10/21 08:59 Last Admin: 02/12/21 11:37 Dose: Not Given Documented by: Fluticasone Propionate (Fluticasone Propionate Na Spr 16 Gm Btl) 1 sprays NA DAILY PRN PRN Reason: allergies Stop: 03/07/21 02:40 Gabapentin (Gabapentin 100 Mg Cap) 100 mg PO BID [facility] Stop: 03/09/21 10:59 Last Admin: 02/14/21 09:36 Dose: 100 mg Documented by: Promethazine HCl 6.25 mg/ (Sodium Chloride) 50.25 mls @ 201 mls/hr IV Q6H PRN PRN Reason: Nausea And Vomiting Stop: 03/08/21 01:16 Last Infusion: 02/06/21 02:38 Dose: Infused Documented by: Lactobacillus Acidoph/Casei/Rhamnos (Advanced Probiotic 1250 Mg Capsule) 2 cap PO DAILY [facility] Stop: 03/15/21 12:44 Last Admin: 02/14/21 09:35 Dose: 2 cap Documented by: Morphine Sulfate (Morphine Sulfate 2 Mg/Ml Carp) 2 mg IV Q6H PRN PRN Reason: Pain Stop: 02/19/21 02:32 Last Admin: 02/08/21 20:05 Dose: 2 mg Documented by: Ondansetron HCl (Ondansetron 4 Mg Od Tab) 4 mg PO Q12 PRN PRN Reason: Nausea Stop: 03/09/21 10:53 Last Admin: 02/13/21 02:13 Dose: 4 mg Documented by: Oxycodone HCl (Oxycodone Hcl Ir 5 Mg Tab (Immediate Release)) 5 - 10 mg PO QID PRN PRN Reason: Pain Stop: 02/19/21 02:32 Last Admin: 02/14/21 11:28 Dose: 5 mg Documented by: Polyethylene Glycol (Polyethylene (Miralax) 17 Gm Pack) 17 gm PO DAILY [facility] Stop: 03/12/21 08:59 Last Admin: 02/14/21 09:29 Dose: Not Given Documented by: Senna/Docusate Sodium (Docusate Sodium/Senna 50/8.6mg Tab) 1 tab PO HS [facility] Stop: 03/07/21 20:59 Last Admin: 02/13/21 21:01 Dose: 1 tab Documented by: Tolterodine Tartrate (Tolterodine Tartrate La 2 Mg Capcr) 2 mg PO QAM [facility] Stop: 03/15/21 09:59 Last Admin: 02/14/21 09:34 Dose: Not Given Documented by: Vitamin D (Cholecalciferol 1,000 Units 25 Mcg Tab) 5,000 units PO DAILY [facility] Stop: 03/09/21 10:59 Last Admin: 02/14/21 09:35 Dose: 5,000 units Documented by:
[2021-02-14] MEDS: DOCUSATE SODIUM/SENNA 50/8.6MG TAB PO SCH (20:52)
[2021-02-15] MEDS: oxyCODONE HCL IR 5 MG TAB (IMMEDIATE RELEASE) PO PRN ×2 (04:11→21:50)
[2021-02-15] MEDS: CHOLECALCIFEROL 1,000 UNITS 25 MCG TAB PO SCH (09:34)
[2021-02-15] MEDS: bisacodyL 5 MG TABEC PO SCH (09:34)
[2021-02-15] MEDS: ENOXAPARIN INJ 40 MG/0.4 ML SYR SQ SCH (09:35)
[2021-02-15] MEDS: CIPROFLOXACIN 500 MG TAB PO SCH ×2 (09:35→21:37)
[2021-02-15] MEDS: DOCUSATE SODIUM 100 MG CAP PO SCH ×2 (09:35→21:38)
[2021-02-15] MEDS: PREMARIN VAG CRM 14 APPLN/30 GM TUBE PV SCH (09:36)
[2021-02-15] MEDS: POLYETHYLENE (MIRALAX) 17 GM PACK PO SCH (09:37)
[2021-02-15] MEDS: GABAPENTIN 100 MG CAP PO SCH ×2 (09:37→21:38)
[2021-02-15] MEDS: ADVANCED PROBIOTIC 1250 MG CAPSULE PO SCH (09:37)
[2021-02-15] MEDS: diazePAM 2 MG TABLET PO SCH ×3 (09:46→21:37)
--- NOTE | 2021-02-15 15:50 | Hospitalist Progress Note ---
Date of Service February 15, 2021 Assessment & Plan (1) Subcapital fracture of neck of femur: Plan: 70 yo F w/ hx of COPD, anxiety, GERD, meningioma status post surgery/radiotherapy, nonepileptic seizures, chronic intention tremors, past tobacco use presented to ED 02/04 with complaint of acute onset of right groin pain. Patient reports lifting heavy objects [2 gallon/another event of 12 pounds/another event of almost 2 gallon] the prior day of onset of right groin pain. Patient is being managed for the following: Subcapital femoral neck fracture Admitting CT scan of pelvis and hip and x-ray pelvis/hip negative for any fracture 02/05 MRI hip: moderate right proximal femoral marrow edema which is centered within the femoral neck extending into the intertrochanteric distribution. Findings are suggestive of a subtle acute fracture of the subcapital femoral neck. Acute stress response versus transient osteoporosis considered less likely. Likely pathological fracture, osteoporosis status unknown, vitamin D level [facility] (Dr. Ornelas) consulted: POD#8 right femoral intramedullary antoinette. For DVT Px --> thigh high TEDs and lovenox 40 mg SC daily for 2 weeks. Can fully weight bear on RT leg as tolerated. F/u in 2-3 weeks from surgery date. Pain control with bowel regimen Hgb 10.9 on 02/14 Awaiting placement UTI -Culture grew Proteus and E. coli -On p.o. Cipro (day 3) Constipation -Resolved with milk of magnesia -Continue bowel regimen while taking narcotics Chronic medical conditions: History of meningioma/nonepileptic seizure/COPD DVT prophylaxis Thigh-high teds and SQ Lovenox as per Ortho Full code Disposition: Patient medically stable for discharge. Awaiting placement to [facility] swing bed. Admission and Anticipated Discharge Date Admission Date: February 06, 2021 Supervising Physician Co-Signing Physician Notes Patient seen and examined by me, care coordinated with NIKKI Gardner, please refer to her note above for further detail. She is currently lying in bed, no acute distress. She has no complaints. Alert oriented answers appropriately. Lung sounds clear to auscultation b/l w/o any wheezing, rhonchi or crackles. Heart sounds regular. Abdomen soft nontender nondistended. Patient moves extremities. No significant lower extremity edema noted. Continue current regimen, antibiotic for UTI, Lovenox for DVT prophylaxis. Awaiting placement to [facility] swing bed. Mg Steinberg MD Subjective Patient seen and examined. Follow-up for right femoral neck fracture s/p repair. Patient reports she is doing well, pain is well controlled. Offers no complaints, eager to be discharged to rehab. Denies chest pain or shortness of breath. No abdominal pain or nausea. Moving bowels. Review of Systems Review of Systems: All systems reviewed & are unremarkable except as noted in Subjective Physical Exam Constitutional: WD/WN, vitals as above Respiratory: normal respiratory effort, lungs clear to auscultation Cardiovascular: Rate/Rhythm: regular rate and regular rhythm Vessels: normal peripheral pulses Extremities: no edema Gastrointestinal (Abdomen): Percussion/Palpation: abdomen soft; abdomen nontender Musculoskeletal: S/p right femur surgery. Surgical incision with abdifatah CDI. + Edema, minimal surrounding ecchymosis, no erythema or drainage Skin: no rashes, warm and dry Neurologic: no focal motor deficits Psychiatric: Orientation: alert and oriented x 3 Affect: + flat affect Results & Data Results & Data ([facility]) Vital Signs (Past 12 Hours) Vital Signs Temp Pulse Resp BP Pulse Ox 02/15/21 07:52 36.3 C L 66 18 108/71 90 Medications Administered Current Inpatient Medications Acetaminophen (Acetaminophen 500 Mg Tab) 1,000 mg PO TID PRN PRN Reason: pain/fever, headache Stop: 03/07/21 02:32 Last Admin: 02/12/21 05:37 Dose: 1,000 mg Documented by: Bisacodyl (Bisacodyl 5 Mg Tabec) 5 mg PO DAILY [facility] Stop: 03/13/21 17:59 Last Admin: 02/15/21 09:34 Dose: Not Given Documented by: Calcium Carbonate (Calcium Carbonate 500 Mg Chewable Tab) 500 mg PO Q6H PRN PRN Reason: Indigestion Stop: 03/14/21 22:42 Ciprofloxacin (Ciprofloxacin 500 Mg Tab) 500 mg PO BID [facility] Stop: 02/18/21 20:59 Last Admin: 02/15/21 09:35 Dose: 500 mg Documented by: Diazepam (Diazepam 2 Mg Tablet) 1 mg PO TID [facility] Stop: 03/07/21 08:59 Last Admin: 02/15/21 13:53 Dose: 1 mg Documented by: Diclofenac Sodium (Diclofenac Sod 1% Gel 100 Gm Tube) 2 gm EXT Q6H PRN PRN Reason: Pain Stop: 03/07/21 02:32 Docusate Sodium (Docusate Sodium 100 Mg Cap) 100 mg PO BID [facility] Stop: 03/12/21 08:59 Last Admin: 02/15/21 09:35 Dose: Not Given Documented by: Enoxaparin Sodium (Enoxaparin Inj 40 Mg/0.4 Ml Syr) 40 mg SQ Q24H [facility] Stop: 03/10/21 08:59 Last Admin: 02/15/21 09:35 Dose: 40 mg Documented by: Estrogens Conjugated (Premarin Vag Crm 14 Appln/30 Gm Tube) 1 appln PV MoFr@0900 [facility] Stop: 03/10/21 08:59 Last Admin: 02/15/21 09:36 Dose: Not Given Documented by: Fluticasone Propionate (Fluticasone Propionate Na Spr 16 Gm Btl) 1 sprays NA DAILY PRN PRN Reason: allergies Stop: 03/07/21 02:40 Gabapentin (Gabapentin 100 Mg Cap) 100 mg PO BID [facility] Stop: 03/09/21 10:59 Last Admin: 02/15/21 09:37 Dose: 100 mg Documented by: Promethazine HCl 6.25 mg/ (Sodium Chloride) 50.25 mls @ 201 mls/hr IV Q6H PRN PRN Reason: Nausea And Vomiting Stop: 03/08/21 01:16 Last Infusion: 02/06/21 02:38 Dose: Infused Documented by: Lactobacillus Acidoph/Casei/Rhamnos (Advanced Probiotic 1250 Mg Capsule) 2 cap PO DAILY [facility] Stop: 03/15/21 12:44 Last Admin: 02/15/21 09:37 Dose: 2 cap Documented by: Morphine Sulfate (Morphine Sulfate 2 Mg/Ml Carp) 2 mg IV Q6H PRN PRN Reason: Pain Stop: 02/19/21 02:32 Last Admin: 02/08/21 20:05 Dose: 2 mg Documented by: Ondansetron HCl (Ondansetron 4 Mg Od Tab) 4 mg PO Q12 PRN PRN Reason: Nausea Stop: 03/09/21 10:53 Last Admin: 02/13/21 02:13 Dose: 4 mg Documented by: Oxycodone HCl (Oxycodone Hcl Ir 5 Mg Tab (Immediate Release)) 5 - 10 mg PO QID PRN PRN Reason: Pain Stop: 02/19/21 02:32 Last Admin: 02/15/21 04:11 Dose: 5 mg Documented by: Polyethylene Glycol (Polyethylene (Miralax) 17 Gm Pack) 17 gm PO DAILY [facility] Stop: 03/12/21 08:59 Last Admin: 02/15/21 09:37 Dose: Not Given Documented by: Senna/Docusate Sodium (Docusate Sodium/Senna 50/8.6mg Tab) 1 tab PO HS [facility] Stop: 03/07/21 20:59 Last Admin: 02/14/21 20:52 Dose: 1 tab Documented by: Tolterodine Tartrate (Tolterodine Tartrate La 2 Mg Capcr) 2 mg PO QPM [facility] Stop: 03/17/21 16:59 Vitamin D (Cholecalciferol 1,000 Units 25 Mcg Tab) 5,000 units PO DAILY [facility] Stop: 03/09/21 10:59 Last Admin: 02/15/21 09:34 Dose: 5,000 units Documented by:
[2021-02-15] MEDS: TOLTERODINE TARTRATE LA 2 MG CAPCR PO SCH ×2 (17:23→21:38)
--- NOTE | 2021-02-15 19:48 | Progress Notes ---
DATE OF SERVICE: 02/15/2021 SUBJECTIVE: A 71-year-old female, now 8 days out from IM nailing of a right femoral neck/intertroch insufficiency fracture. She is doing well. It seems like she is getting better. Pain is improving. She is working through therapy. Just waiting for placement. OBJECTIVE: VITAL SIGNS: Temperature is 36.3. Vital signs are stable. PHYSICAL EXAMINATION: GENERAL: Shows a pleasant, thin female. I had to wake her this afternoon. She looks comfortable. EXTREMITIES: Examination of the right hip and leg reveals all wounds to be sealed nicely. Legs alig nment is good. Minimal to no swelling or bruising. She can do a straight leg raise with some effort . She is neurologically intact. ASSESSMENT: A 71-year-old female, now 8 days out from intramedullary nailing of a right femoral neck /intertrochanteric insufficiency fracture. She is improving. We are just waiting for placement. PLAN: 1. DVT prophylaxis includes thigh-high TEDs, SCDs, and Lovenox for 1 month. 2. PT, OT, weight bear as tolerated. 3. Pain control, doing okay with current pain regimen. 4. Medical management as per the medicine service. 5. Disposition: She is orthopedically okay for discharge any time. I need to see her back in about a week. If she is still here through this week, we may take her abdifatah out before discharge. Job ID: [id number]
[2021-02-15] MEDS: DOCUSATE SODIUM/SENNA 50/8.6MG TAB PO SCH (21:37)
[2021-02-16] MEDS: bisacodyL 5 MG TABEC PO SCH ×2 (09:55→09:58)
[2021-02-16] MEDS: CIPROFLOXACIN 500 MG TAB PO SCH ×2 (09:56→20:34)
[2021-02-16] MEDS: CHOLECALCIFEROL 1,000 UNITS 25 MCG TAB PO SCH (09:56)
[2021-02-16] MEDS: DOCUSATE SODIUM 100 MG CAP PO SCH ×2 (09:57→20:35)
[2021-02-16] MEDS: ENOXAPARIN INJ 40 MG/0.4 ML SYR SQ SCH (09:57)
[2021-02-16] MEDS: diazePAM 2 MG TABLET PO SCH ×3 (09:57→20:33)
[2021-02-16] MEDS: ADVANCED PROBIOTIC 1250 MG CAPSULE PO SCH (09:59)
[2021-02-16] MEDS: GABAPENTIN 100 MG CAP PO SCH ×2 (09:59→20:35)
[2021-02-16] MEDS: POLYETHYLENE (MIRALAX) 17 GM PACK PO SCH (10:00)
[2021-02-16] MEDS: oxyCODONE HCL IR 5 MG TAB (IMMEDIATE RELEASE) PO PRN (10:15)
[2021-02-16] MEDS: TOLTERODINE TARTRATE 2 MG TAB PO SCH (17:05)
--- NOTE | 2021-02-16 17:55 | Hospitalist Progress Note ---
Date of Service February 16, 2021 Assessment & Plan (1) Subcapital fracture of neck of femur: Plan: 70 yo F w/ hx of COPD, anxiety, GERD, meningioma status post surgery/radiotherapy, nonepileptic seizures, chronic intention tremors, past tobacco use presented to ED 02/04 with complaint of acute onset of right groin pain. Patient reports lifting heavy objects [2 gallon/another event of 12 pounds/another event of almost 2 gallon] the prior day of onset of right groin pain. Patient is being managed for the following: Subcapital femoral neck fracture Admitting CT scan of pelvis and hip and x-ray pelvis/hip negative for any fracture 02/05 MRI hip: moderate right proximal femoral marrow edema which is centered within the femoral neck extending into the intertrochanteric distribution. Findings are suggestive of a subtle acute fracture of the subcapital femoral neck. Acute stress response versus transient osteoporosis considered less likely. Likely pathological fracture, osteoporosis status unknown, vitamin D level [facility] (Dr. Ornelas) consulted: POD#9 right femoral intramedullary antoinette. For DVT Px --> thigh high TEDs and lovenox 40 mg SC daily for 4 weeks. Can fully weight bear on RT leg as tolerated. F/u in 2-3 weeks from surgery date. Pain control with bowel regimen Hgb 10.9 on 02/14 Awaiting placement UTI -Culture grew Proteus and E. coli -On p.o. Cipro (day 4) Constipation -Resolved with milk of magnesia -Continue bowel regimen while taking narcotics Chronic medical conditions: History of meningioma/nonepileptic seizure/COPD DVT prophylaxis Thigh-high teds and SQ Lovenox as per Ortho Full code Disposition: Patient medically stable for discharge. Awaiting placement. Admission and Anticipated Discharge Date Admission Date: February 06, 2021 Supervising Physician Co-Signing Physician Notes Patient seen and examined by me, care coordinated with NIKKI Gardner, please refer to her note above for further detail. Pt is currently lying in bed, no acute distress. She has no complaints. Alert oriented answers appropriately. Lung sounds clear to auscultation b/l w/o any wheezing, rhonchi or crackles. Heart sounds regular. Abdomen soft nontender nondistended. Patient moves extremities. No significant lower extremity edema noted. Continue current regimen, antibiotic for UTI, Lovenox for DVT prophylaxis. Awaiting placement. Mg Steinberg MD Subjective Patient seen and examined. Follow-up for right femoral neck fracture s/p repair. Patient reports she is doing well, pain is well controlled. Observed patient ambulating in [place] with therapy. Offers no complaints, eager to be discharged to rehab. Denies chest pain or shortness of breath. No abdominal pain or nausea. Had a bowel movement yesterday. Review of Systems Review of Systems: All systems reviewed & are unremarkable except as noted in Subjective Physical Exam Constitutional: WD/WN, vitals as above Respiratory: normal respiratory effort, lungs clear to auscultation Cardiovascular: Rate/Rhythm: regular rate and regular rhythm Vessels: normal peripheral pulses Extremities: no edema Gastrointestinal (Abdomen): Percussion/Palpation: abdomen soft; abdomen nontender Musculoskeletal: S/p right hip surgery, abdifatah CDI, + edema, normal surrounding ecchymosis Skin: no rashes, warm and dry Neurologic: + focal motor deficit Psychiatric: Orientation: alert and oriented x 3 Affect: + flat affect Results & Data Results & Data ([facility]) Vital Signs (Past 12 Hours) Vital Signs Temp Pulse Resp BP BP Pulse Ox 02/16/21 14:54 36.4 C L 85 18 108/70 94 02/16/21 06:48 36.4 C L 70 18 111/64 92 Medications Administered Current Inpatient Medications Acetaminophen (Acetaminophen 500 Mg Tab) 1,000 mg PO TID PRN PRN Reason: pain/fever, headache Stop: 03/07/21 02:32 Last Admin: 02/12/21 05:37 Dose: 1,000 mg Documented by: Bisacodyl (Bisacodyl 5 Mg Tabec) 5 mg PO DAILY [facility] Stop: 03/13/21 17:59 Last Admin: 02/16/21 09:58 Dose: 5 mg Documented by: Calcium Carbonate (Calcium Carbonate 500 Mg Chewable Tab) 500 mg PO Q6H PRN PRN Reason: Indigestion Stop: 03/14/21 22:42 Ciprofloxacin (Ciprofloxacin 500 Mg Tab) 500 mg PO BID [facility] Stop: 02/18/21 20:59 Last Admin: 02/16/21 09:56 Dose: 500 mg Documented by: Diazepam (Diazepam 2 Mg Tablet) 1 mg PO TID [facility] Stop: 03/07/21 08:59 Last Admin: 02/16/21 13:55 Dose: 1 mg Documented by: Diclofenac Sodium (Diclofenac Sod 1% Gel 100 Gm Tube) 2 gm EXT Q6H PRN PRN Reason: Pain Stop: 03/07/21 02:32 Docusate Sodium (Docusate Sodium 100 Mg Cap) 100 mg PO BID [facility] Stop: 03/12/21 08:59 Last Admin: 02/16/21 09:57 Dose: 100 mg Documented by: Enoxaparin Sodium (Enoxaparin Inj 40 Mg/0.4 Ml Syr) 40 mg SQ Q24H [facility] Stop: 03/10/21 08:59 Last Admin: 02/16/21 09:57 Dose: 40 mg Documented by: Estrogens Conjugated (Premarin Vag Crm 14 Appln/30 Gm Tube) 1 appln PV MoFr@0900 [facility] Stop: 03/10/21 08:59 Last Admin: 02/15/21 09:36 Dose: Not Given Documented by: Fluticasone Propionate (Fluticasone Propionate Na Spr 16 Gm Btl) 1 sprays NA DAILY PRN PRN Reason: allergies Stop: 03/07/21 02:40 Gabapentin (Gabapentin 100 Mg Cap) 100 mg PO BID [facility] Stop: 03/09/21 10:59 Last Admin: 02/16/21 09:59 Dose: 100 mg Documented by: Hydrocortisone (Hydrocortisone 1% Crm 30 Gm Tube) 1 appln EXT BID PRN PRN Reason: itch Stop: 03/18/21 15:57 Promethazine HCl 6.25 mg/ (Sodium Chloride) 50.25 mls @ 201 mls/hr IV Q6H PRN PRN Reason: Nausea And Vomiting Stop: 03/08/21 01:16 Last Infusion: 02/06/21 02:38 Dose: Infused Documented by: Lactobacillus Acidoph/Casei/Rhamnos (Advanced Probiotic 1250 Mg Capsule) 2 cap PO DAILY [facility] Stop: 03/15/21 12:44 Last Admin: 02/16/21 09:59 Dose: 2 cap Documented by: Morphine Sulfate (Morphine Sulfate 2 Mg/Ml Carp) 2 mg IV Q6H PRN PRN Reason: Pain Stop: 02/19/21 02:32 Last Admin: 02/08/21 20:05 Dose: 2 mg Documented by: Ondansetron HCl (Ondansetron 4 Mg Od Tab) 4 mg PO Q12 PRN PRN Reason: Nausea Stop: 03/09/21 10:53 Last Admin: 02/13/21 02:13 Dose: 4 mg Documented by: Oxycodone HCl (Oxycodone Hcl Ir 5 Mg Tab (Immediate Release)) 5 - 10 mg PO QID PRN PRN Reason: Pain Stop: 02/19/21 02:32 Last Admin: 02/16/21 10:15 Dose: 5 mg Documented by: Polyethylene Glycol (Polyethylene (Miralax) 17 Gm Pack) 17 gm PO DAILY [facility] Stop: 03/12/21 08:59 Last Admin: 02/16/21 10:00 Dose: Not Given Documented by: Senna/Docusate Sodium (Docusate Sodium/Senna 50/8.6mg Tab) 1 tab PO HS [facility] Stop: 03/07/21 20:59 Last Admin: 02/15/21 21:37 Dose: 1 tab Documented by: Tolterodine Tartrate (Tolterodine Tartrate 2 Mg Tab) 2 mg PO Q24H [facility] Stop: 03/18/21 16:59 Last Admin: 02/16/21 17:05 Dose: 2 mg Documented by: Vitamin D (Cholecalciferol 1,000 Units 25 Mcg Tab) 5,000 units PO DAILY [facility] Stop: 03/09/21 10:59 Last Admin: 02/16/21 09:56 Dose: 5,000 units Documented by:
[2021-02-16] MEDS: DOCUSATE SODIUM/SENNA 50/8.6MG TAB PO SCH (20:35)
[2021-02-16] MEDS: HYDROCORTISONE 1% CRM 30 GM TUBE EXT PRN (20:42)
[2021-02-17] MEDS: oxyCODONE HCL IR 5 MG TAB (IMMEDIATE RELEASE) PO PRN ×2 (02:07→09:19)
[2021-02-17] MEDS: POLYETHYLENE (MIRALAX) 17 GM PACK PO SCH (09:16)
[2021-02-17] MEDS: diazePAM 2 MG TABLET PO SCH ×3 (09:20→20:17)
[2021-02-17] MEDS: GABAPENTIN 100 MG CAP PO SCH ×2 (09:23→20:18)
[2021-02-17] MEDS: CHOLECALCIFEROL 1,000 UNITS 25 MCG TAB PO SCH (09:23)
[2021-02-17] MEDS: DOCUSATE SODIUM 100 MG CAP PO SCH ×2 (09:24→20:18)
[2021-02-17] MEDS: ENOXAPARIN INJ 40 MG/0.4 ML SYR SQ SCH (09:25)
[2021-02-17] MEDS: ADVANCED PROBIOTIC 1250 MG CAPSULE PO SCH (09:25)
[2021-02-17] MEDS: CIPROFLOXACIN 500 MG TAB PO SCH ×2 (09:25→20:17)
[2021-02-17] MEDS: HYDROCORTISONE 1% CRM 30 GM TUBE EXT PRN (11:59)
[2021-02-17] MEDS: CALCIUM CARBONATE 500 MG CHEWABLE TAB PO PRN (16:53)
[2021-02-17] MEDS: TOLTERODINE TARTRATE 2 MG TAB PO SCH (16:56)
--- NOTE | 2021-02-17 17:00 | Hospitalist Progress Note ---
Date of Service February 17, 2021 Assessment & Plan (1) Subcapital fracture of neck of femur: Plan: 70 yo F w/ hx of COPD, anxiety, GERD, meningioma status post surgery/radiotherapy, nonepileptic seizures, chronic intention tremors, past tobacco use presented to ED 02/04 with complaint of acute onset of right groin pain. Patient reports lifting heavy objects [2 gallon/another event of 12 pounds/another event of almost 2 gallon] the prior day of onset of right groin pain. Patient is being managed for the following: Subcapital femoral neck fracture Admitting CT scan of pelvis and hip and x-ray pelvis/hip negative for any fracture 02/05 MRI hip: moderate right proximal femoral marrow edema which is centered within the femoral neck extending into the intertrochanteric distribution. Findings are suggestive of a subtle acute fracture of the subcapital femoral neck. Acute stress response versus transient osteoporosis considered less likely. Likely pathological fracture, osteoporosis status unknown, vitamin D level WNL Orthopedics (Dr. Ornelas) consulted: POD#10 right femoral intramedullary antoinette. For DVT Px --> thigh high TEDs and lovenox 40 mg SC daily for 4 weeks. Can fully weight bear on RT leg as tolerated. F/u in 2-3 weeks from surgery date. Pain control with bowel regimen Hgb 10.9 on 02/14 Awaiting placement UTI -Culture grew Proteus and E. coli -On p.o. Cipro (day 5) Constipation -Resolved with milk of magnesia -Continue bowel regimen while taking narcotics Chronic medical conditions: History of meningioma/nonepileptic seizure/COPD DVT prophylaxis Thigh-high teds and SQ Lovenox as per Ortho Full code Disposition: Patient medically stable for discharge. Patient accepted to [facility], insurance Auth pending. Admission and Anticipated Discharge Date Admission Date: February 06, 2021 Supervising Physician Co-Signing Physician Notes Patient seen and examined at the bedside. Communicated with Meme PANTOJA. Patient here for subcapital fracture of neck of femur status post right femoral intramedullary antoinette by orthopedics. Patient will need to follow-up with orthopedics as an outpatient. Patient awaiting placement. Agree with the physical exam finding as above. I have seen and examined the patient and have discussed the case with the provider above. I agree with the assessment and plan as stated. Subjective Patient seen and examined. Follow-up for right femur fracture s/p repair. Doing well, offers no complaints. Eager to be discharged to rehab. Pain controlled with current regimen. No bowel movement today, willing to take MiraLAX. Denies chest pain or shortness of breath. No abdominal pain or nausea. Physical Exam Constitutional: WD/WN, vitals as above Respiratory: normal respiratory effort, lungs clear to auscultation Cardiovascular: Rate/Rhythm: regular rate and regular rhythm Extremities: no edema Gastrointestinal (Abdomen): Percussion/Palpation: abdomen soft; abdomen nontender Musculoskeletal: S/p right leg surgery, surgical abdifatah CDI, minimal edema and surrounding ecchymosis Skin: no rashes, warm and dry Neurologic: no focal motor deficits Psychiatric: Orientation: alert and oriented x 3 Affect: + flat affect Results & Data Results & Data ([facility]) Vital Signs (Past 12 Hours) Vital Signs Temp Pulse Resp BP Pulse Ox 02/17/21 16:16 36.9 C 73 18 98/61 L 91 02/17/21 09:12 36.8 C 66 18 106/67 93
[2021-02-17] MEDS: DOCUSATE SODIUM/SENNA 50/8.6MG TAB PO SCH (20:18)
[2021-02-18] MEDS: oxyCODONE HCL IR 5 MG TAB (IMMEDIATE RELEASE) PO PRN ×3 (02:25→14:03)
[2021-02-18] MEDS: CALCIUM CARBONATE 500 MG CHEWABLE TAB PO PRN (02:25)
[2021-02-18] MEDS: HYDROCORTISONE 1% CRM 30 GM TUBE EXT PRN (08:11)
[2021-02-18] MEDS: POLYETHYLENE (MIRALAX) 17 GM PACK PO SCH (08:13)
[2021-02-18] MEDS: DOCUSATE SODIUM 100 MG CAP PO SCH (08:14)
[2021-02-18] MEDS: CHOLECALCIFEROL 1,000 UNITS 25 MCG TAB PO SCH (08:15)
[2021-02-18] MEDS: bisacodyL 5 MG TABEC PO SCH (08:15)
[2021-02-18] MEDS: ADVANCED PROBIOTIC 1250 MG CAPSULE PO SCH (08:15)
[2021-02-18] MEDS: CIPROFLOXACIN 500 MG TAB PO SCH (08:16)
[2021-02-18] MEDS: GABAPENTIN 100 MG CAP PO SCH (08:16)
[2021-02-18] MEDS: ENOXAPARIN INJ 40 MG/0.4 ML SYR SQ SCH (08:16)
[2021-02-18] MEDS: diazePAM 2 MG TABLET PO SCH ×2 (08:31→13:34)
--- NOTE | 2021-02-18 11:56 | Discharge Summary ---
Date of Service February 18, 2021 Admission HPI Per Admitting Provider History obtained from patient and records. Medical history significant for COPD, anxiety, GERD, meningioma status post surgery/radiotherapy, history nonepileptic seizures, chronic intention tremors, past tobacco abuse. Recent confinement February 2019 for breakthrough seizures. Patient transferred to [facility] for further evaluation. Patient started by specialist on gabapentin few months ago for headache attributed to neuropathic pain post craniotomy for meningioma. Patient does not think medication is working. Trying to taper down dose. Patient currently on gabapentin twice daily. Patient noted achy right hip pain worse with motion at the parking lot of a local grocery today. No recollection of recent trauma/exertion/lifting. Patient denies chest pain, S OB. Usual headache symptoms. Patient thinks her gabapentin Rx might have something to do with right hip pain. Intractable discomfort at the ER. Medical Historyas above Surgical History : Left hip surgery, appendectomy, nasal septum repair, thyroidectomy, brain tumor removal Family History : Asthma, mood disorder, uterine cancer, suicide Personal/Social history : Past tobacco abuse, no EtOH intake, retired [employer] assistant Admission Exam Per Admitting Provider Physical Exam:GENERAL: Slightly uncomfortable, anxious, no respiratory distress SKIN: Normal color, warm HEENT: [place] palpebral conjunctivae, no ptosis, dry buccal mucosa NECK : Supple, no tenderness CHEST : CTA, no anterior chest wall tenderness HEART : RRR, no obvious murmurs ABDOMEN: Some distention, nontender EXTREMITIES : Right hip tenderness, minimal LE swelling NEUROLOGIC : Coherent, no facial asymmetry, tremulous, gait and stance not assessed Principal Diagnosis Subcapital femoral neck fracture Discharge Exam Gen: WD/WN, NAD, lying in bed, A&Ox3 HEENT: Normocephalic, atraumatic, conjunctivae moist, sclerae anicteric, mucous membranes moist Lung: Clear to Auscultation bilaterally, no wheezes/rales/rhonchi Heart: Regular rate, regular rhythm, no murmurs, rubs, or gallops Abdomen: Soft, NT, ND +BS x 4 Extremities: S/p R leg surgery abdifatah CDI, minimal edema and surrounding ecchymosis. No edema Skin: Warm, no rash Neuro/psych: A&Ox3, flat affect Discharge Data Allergies Allergy/AdvReac Type Severity Reaction Status Date / Time Penicillins Allergy Severe ANAPHYLAXIS Verified 02/05/21 00:52 topiramate [From Topamax] Allergy Unknown Unknown Verified 02/05/21 00:52 aspirin AdvReac Severe SWELLING Verified 02/05/21 00:52 OF ESOPHAGUS propoxyphene AdvReac Severe SWELLING Verified 02/05/21 00:52 TO ESOPHAGUS codeine AdvReac Intermediate VOMITTING Verified 02/05/21 00:52 hydromorphone [From Dilaudid] AdvReac Difficulty Verified 02/05/21 00:52 Breathing Consultations 02/05/21 00:23 ED Decision to Admit Stat 02/05/21 10:13 Consult Orthopedic Surgery Routine Procedures Performed Operation Date: 02/07/21 07:30 Actual Procedures p Right Intramedullary German Hip, Long - Lv Ornelas MD Ordered Studies 02/04/21 21:44 CT hip RT wo con Urgent CT pelvis wo con Urgent 02/05/21 11:34 MR hip RT wo con Urgent 02/07/21 07:00 FL femur RT 2V Routine Hospital Course (1) Subcapital fracture of neck of femur: (2) UTI (urinary tract infection): (3) Constipation: (4) Atypical meningioma of brain: (5) COPD (chronic obstructive pulmonary disease): This is a 70 yo F w/ hx of COPD, anxiety, GERD, meningioma status post surgery/radiotherapy, nonepileptic seizures, chronic intention tremors, past tobacco use presented to ED 02/04 with complaint of acute onset of right groin pain and was found to have subcapital fracture of neck of femur and right femoral intramedullary german placement by Dr. Ornelas on 02/07/21. Patient is directed to bear weight as tolerated and follow up with ortho surgery clinic 2-3 weeks following surgery. Instructed to continue thigh high CLEMENTE hose and Lovenox SQ 40mg SC daily for 4 total weeks following surgery (through March 07). Continue taking oxycodone as needed and scheduled tylenol with bowel regimen. Completed antibiotic course of Cipro for urinary tract infection while admitted. Patient hemodynamically stable and pain is controlled at time of discharge. Discharging to [facility]. Total Time Total Time Spent Total Time Spent (In Minutes): 45 Discharge Plan Discharge Items Patient Disposition: Transfer Correction Fac Reason For Visit: R HIP PAIN Discharge Diagnosis: IM Nail Right Hip Fracture Activity: Per Instructions section Weightbearing: Full weightbearing Weightbearing Comment: May fully weightbear as tolerated on right leg Non-emergency contact: Primary Care Provider and Surgeon Call non-emergency contact if: you have any medication questions and your symptoms worsen Follow-up/Referrals: Lv Ornelas MD [Physician] - (Orthopedic follow-up 2-3 weeks from surgery date) Dexter Dixon, [Primary Care Provider] - Diet: Regular Add Attending Provider Instructions: You were admitted for subcapital fracture of neck of femur and right femoral intramedullary german placement by Dr. Ornelas on 02/07/21. Please continue thigh high CLEMENTE hose and Lovenox SQ 40mg SC daily for 4 total weeks following surgery (through March 07). You were prescribed pain medicated to take as needed. Please continue bowel regimen daily while taking oxycodone. Please follow up at Dr. Ornelas's office for orthopedic follow up 2-3 weeks from surgery date. You completed antibiotic course of Cipro for urinary tract infection while admitted. OTHER INSTRUCTIONS: Seek medical attention if you have: * temperature above 101 * chest pain or trouble breathing * abdominal pain, nausea, vomiting * diarrhea, dark stools or bloody stools * any unanswered questions or concerns Call 911 if symptoms are severe. Please take good care of yourself. Call if you have any questions or problems. You can reach a [facility] hospitalist on duty at [facility] 24 hours a day by calling [phone]. [facility] [employer] Provider Instructions: Activity as tolerated Fully weightbear as tolerated. Pending Studies at Discharge: No Stand-Alone Forms: My [facility] Skilled Items Patient informed of condition?: Yes DNR: No Discharge Level of Care: Skilled Communicable Disease: No Discharge Prognosis: Stable Lines: None Urinary Catheter: No Medications and DC Order Prescriptions: New enoxaparin 40 mg/0.4 mL Syringe 40 mg subcut Q24H 18 Days Qty: 7.2 RF: 0 oxycodone 5 mg Tablet 5 mg PO QID PRN (Reason: pain) 2 Days Qty: 20 RF: 0 Continued sennosides-docusate sodium [Senna-S] 8.6-50 mg Tablet 1 tab-cap PO HS Qty: 30 RF: 0 acetaminophen [Tylenol Extra Strength] 500 mg tablet 1,000 mg PO Q8H Qty: 180 RF: 0 diazepam 2 mg tablet 1 mg PO TID Qty: 11 RF: 0 Premarin 0.625 mg/gram cream 1 applic vaginal MOTH Qty: 30 RF: 0 docusate sodium 100 mg Capsule 200 mg PO DAILY Qty: 60 RF: 0 mometasone 50 mcg/actuation spray,non-aerosol 2 spray INTRANASAL DAILY PRN (Reason: allergies) Qty: 17 RF: 0 gabapentin 100 mg capsule 100 mg PO BID Qty: 60 RF: 0 ondansetron 4 mg Tablet,Disintegrating 4 mg PO Q12 PRN (Reason: Nausea) Qty: 20 RF: 0 solifenacin 5 mg tablet 5 mg PO DAILY Qty: 30 RF: 0 diclofenac sodium 1 % Gel 2 g TOPICAL BID PRN (Reason: Pain) Qty: 100 RF: 0 cholecalciferol (vitamin D3) [Vitamin D3] 125 mcg (5,000 unit) Tablet 125 mcg PO DAILY Qty: 30 RF: 0 Discharge Orders: Discharge Order (Routine); Ordered 02/18/21 Ordered By: Rebeka Cox/Other Patient Handouts: After a Hip Fracture: Common Questions Admission Data Admit Date/Time: 02/06/21 09:08 Attending Provider: Nancy Brasher Admit Provider: Neo Mendoza Primary Care Provider: Dexter Dixon Other Providers: Johnathan Gann [facility] ; [facility] ; [facility] ; Neo Mendoza ; Lv Ornelas ; [facility] ; Nancy Brasher Other Interventions: Discharge Summary Assessment (RN) Last Done: 02/18/21 12:18 Supervising Physician Co-Signing Physician Notes Patient seen and examined at the bedside. Communicated with Rebeka PANTOJA. Patient here for subcapital fracture of neck of femur status post right femoral intramedullary german by orthopedics. Patient will need to follow-up with orthopedics as an outpatient. Patient awaiting placement. Agree with the physical exam finding as above. I have seen and examined the patient and have discussed the case with the provider above. I agree with the assessment and plan as stated.
== END 2021-02-18 14:38 | DRG 481 ==
LOC: 3N 17:17 → ED 17:17 → 3N 02-05 02:08 → SUATTDRO 02-06 09:08